=== PATIENT | male | born 1955 | race Hispanic/Latino ===

== ENCOUNTER 2017-10-31 05:58 | Inpatient (IN) | payer MEDICARE, OTHER ==
[2017-10-27 14:24] VITALS: BMI 23.9
[2017-10-31] MEDS ORDERED: Bupivacaine 0.5% Inj(30mL) ONE (07:32)
[2017-10-31] MEDS ORDERED: Propofol 10 mg/ml Inj (20 ML) ONE (07:53)
[2017-10-31] MEDS ORDERED: Rocuronium 10 mg/ml (5 ml) ONE ×2 (07:53→09:38)
[2017-10-31] MEDS ORDERED: Midazolam 2 MG/2 ML VIAL ONE (07:53)
[2017-10-31] MEDS ORDERED: metroNIDAZOLE IV 500 mg/100 ml 500 MG/100 ML BAG ONE (07:57)
[2017-10-31] MEDS ORDERED: MetroNIDAZOLE 500 mg/100 ml IVPB ONE (08:15)
[2017-10-31] MEDS ORDERED: Phenylephrine 10 mg/ml Inj ONE (08:37)
[2017-10-31] MEDS ORDERED: Neostigmine Methylsulfate 3mg/3ml Syringe IV ONE (10:50)
[2017-10-31] MEDS ORDERED: Morphine 4 mg/ml ISec ONE ×2 (10:50→11:11)
[2017-10-31] MEDS ORDERED: HYDROmorphone 0.5 mg/0.5 ml ISec IVP PRN (11:35)
[2017-10-31] MEDS ORDERED: HYDROmorphone 0.5 mg/0.5 ml ISec IVP ONE ×2 (11:35→11:56)
[2017-10-31] MEDS ORDERED: HYDROmorphone 0.5 mg/0.5 ml ISec ONE ×2 (11:36→11:53)
[2017-10-31] MEDS ORDERED: Sodium Chloride 0.9% 1,000 ML IV SCH (11:45)
--- NOTE | 2017-10-31 11:54 | PCM.SURG1 ---
Surgeon's Initial Post Op Note - Surgeon's Notes Surgeon: Dr. Krishna Laborer [employer]: Parisa Abdullahi PGY2 Pre-Operative Diagnosis: Parastomal hernia and ventral hernia Operative Findings: Parastomal hernia 5x5cm and ventral hernia [id number] Post-Operative Diagnosis: Same Operation Performed: Parastomal and ventral hernia repair with mesh Specimen/Specimens Removed: none Estimated Blood Loss: EBL {In ML}: 50 Blood Products Given: N/A Drains Used: Ramin Post-Op Condition: Good Date of Surgery/Procedure: 10/31/17 Time of Surgery/Procedure: 11:55
--- NOTE | 2017-10-31 12:59 | CP.PCM.CON ---
History of Present Illness - History of Present Illness History of Present Illness: PGY-[address] Bruno's service 62 yo male with PMH of carcinoma of the rectum T3 N1 M0, diabetes, CAD, CHF, hyperlipidemia, HTN,anemia presented for hernia repair of incarcerated parastomal hernia adn revision of colonstomy. 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 Patient was seen after surgery, he states that he is a little nauseous and has abd pain. He denies chest pain, sob, fever, chills. pmh: rectum T3 N1 M0, diabetes, CAD, CHF, hyperlipidemia, HTN,anemia psh: colostomy, cardiac bypass social history: fomer smoker quit 8 yo, occasional alcohol use, denies illicit drug use allergy: nkda Review of Systems - Constitutional Constitutional: absent: Chills, Fever - Cardiovascular Cardiovascular: absent: Chest Pain, Diaphoresis, Palpitations - Respiratory Respiratory: absent: Cough, Dyspnea, Wheezing - Gastrointestinal Gastrointestinal: Abdominal Pain, Nausea. absent: Vomiting Additional comments: colostomy - Musculoskeletal Musculoskeletal: absent: Arthralgias, Myalgias, Numbness - Integumentary Integumentary: absent: Pruritus, Rash, Skin Ulcer, Sores - Neurological Neurological: absent: Headaches, Syncope, Weakness - Hematologic/Lymphatic Hematologic: absent: Easy Bleeding, Easy Bruising Past Patient History - Past Social History Smoking Status: Never Smoked - CARDIAC Hx Pacemaker: No - PULMONARY Hx Respiratory Disorders: No - NEUROLOGICAL Hx Paralysis: No - HEENT Hx HEENT Problems: Yes (glasses) - ENDOCRINE/METABOLIC Hx Endocrine Disorders: Yes (diet controlled diabetes) - HEMATOLOGICAL/ONCOLOGICAL Hx Blood Transfusions: Yes (06/04/15) Hx Blood Transfusion Reaction: No - INTEGUMENTARY Other/Comment: surgical dressings x2 to abd christo x2 to abd left abd colostomy - MUSCULOSKELETAL/RHEUMATOLOGICAL Hx Musculoskeletal Disorders: Yes (BACK DISCOMFORT AT TIMES) - GASTROINTESTINAL Hx Gastrointestinal Disorders: Yes (weight loss) Hx Bowel Surgery: Yes Hx Colostomy: Yes - GENITOURINARY/GYNECOLOGICAL Hx Genitourinary Disorders: No Hx Reproductive Disorders: No - PSYCHIATRIC Hx Emotional Abuse: No Hx Physical Abuse: No Hx Substance Use: No - SURGICAL HISTORY Hx Surgeries: Yes - ANESTHESIA Hx Anesthesia Reactions: No Hx Malignant Hyperthermia: No Meds Allergies/Adverse Reactions: Allergies Allergy/AdvReac Type Severity Reaction Status Date / Time No Known Allergies Allergy Verified 10/27/17 14:24 - Medications Medications: Current Medications Acetaminophen (Tylenol 325mg Tab) 650 mg PO Q4 PRN PRN Reason: Fever >100.4 F Atorvastatin Calcium (Lipitor) 20 mg PO DIN [facility] Enoxaparin Sodium (Lovenox) 30 mg SC DAILY [facility] PRN Reason: Protocol Hydromorphone HCl (Dilaudid) 0.5 mg IVP Q10M PRN PRN Reason: Pain, moderate (4-7) Stop: 10/31/17 13:36 Hydromorphone HCl (Dilaudid) 0.5 mg IVP Q4H PRN PRN Reason: Pain, severe (8-10) Sodium Chloride (Sodium Chloride 0.9%) 1,000 mls @ 75 mls/hr IV .[id number] [facility] Stop: 10/31/17 13:46 Cefoxitin Sodium 1 gm/ Sodium (Chloride) 100 mls @ 100 mls/hr IV 0000,1600 [facility] PRN Reason: Protocol Stop: 11/01/17 00:59 Metronidazole (Flagyl) 250 mg in 50 mls @ 100 mls/hr IVPB 0000,1600 [facility] PRN Reason: Protocol Stop: 11/01/17 00:29 Metformin HCl (Glucophage) 500 mg PO BID [facility] Metoclopramide HCl (Reglan) 10 mg IV ONCE PRN PRN Reason: Nausea/Vomiting Metoprolol Tartrate (Lopressor) 25 mg PO BID [facility] Ondansetron HCl (Zofran Inj) 4 mg IVP Q4H PRN PRN Reason: Nausea/Vomiting Tramadol HCl (Ultram) 50 mg PO TID PRN PRN Reason: Pain, moderate (4-7) Physical Exam - Constitutional Appears: No Acute Distress - Head Exam Head Exam: ATRAUMATIC, NORMOCEPHALIC - Eye Exam Eye Exam: EOMI, Normal appearance - ENT Exam ENT Exam: Mucous Membranes Moist - Respiratory Exam Respiratory Exam: Clear to Auscultation Bilateral, NORMAL BREATHING PATTERN. absent: Rhonchi, Wheezes, Respiratory Distress - Cardiovascular Exam Cardiovascular Exam: REGULAR RHYTHM, +S1, +S2. absent: Bradycardia, Tachycardia , Systolic Murmur - GI/Abdominal Exam GI & Abdominal Exam: Diminished Bowel Sounds, Soft, Tenderness Additional comments: colostomy inplace, christo drain with serosanganous fluid, abd binder - Extremities Exam Extremities exam: Positive for: normal inspection. Negative for: pedal edema, tenderness - Neurological Exam Neurological exam: Alert, Oriented x3 Additional comments: sleepy due to sedation - Skin Skin Exam: Dry, Intact, Normal Color, Warm Results - Vital Signs Recent Vital Signs: Last Vital Signs Temp 97.8 F 10/31/17 12:45 Pulse 78 10/31/17 12:45 Resp 18 10/31/17 12:45 BP 145/65 10/31/17 12:45 Pulse Ox 98 10/31/17 12:45 - Labs Result Diagrams: 10/31/17 07:25 Labs: Laboratory Results - last 24 hr 10/31/17 10/31/17 10/31/17 06:30 07:25 11:43 Sodium 137 Potassium 5.2 H Chloride 101 Carbon Dioxide 25 Anion Gap 17 BUN 44 H Creatinine 2.6 H Est GFR ( Amer) 30 Est GFR (Non-Af Amer) 25 POC Glucose (mg/dL) 191 H Random Glucose 193 H Calcium 10.0 Blood Type B POSITIVE Antibody Screen Negative BBK History Checked Patient has bt Assessment & Plan - Assessment and Plan (Free Text) Assessment: 62 yo male with PMH of carcinoma of the rectum T3 N1 M0, diabetes, CAD, CHF, hyperlipidemia, HTN,anemia presented for hernia repair of incarcerated parastomal hernia and revision of colonstomy. Plan: will continue to monitor christo and colostomy output on clear liquid diet, advance diet per surgery abx cefoxitin and metronidazole started reglan given for n/v Dilaudid and ultram for pain per surgery lovenox for dvt ppx incentive spirometer ordered started on home medications for cad and dm including liptor, metformin, lopressor PT evaluation
[2017-10-31] MEDS: HYDROmorphone 0.5 mg/0.5 ml ISec IVP PRN (15:28)
[2017-10-31] MEDS ORDERED: metroNIDAZOLE IV 250mg/50 ml 250 MG/50 ML BAG IVPB SCH (16:00)
[2017-10-31] MEDS ORDERED: cefOXitin Sodium 1 GM in Sodium Chloride 0.9% 100 ML IV SCH (16:00)
[2017-10-31] MEDS: metroNIDAZOLE IV 250mg/50 ml 250 MG/50 ML BAG IVPB SCH (16:58)
[2017-10-31] MEDS: cefOXitin Sodium 1 GM in Sodium Chloride 0.9% 100 ML IV SCH ×2 (17:02→23:28)
[2017-10-31] MEDS ORDERED: Pneumococcal 23-Valent Vaccine IM ONE (18:40)
[2017-11-01] MEDS: metroNIDAZOLE IV 250mg/50 ml 250 MG/50 ML BAG IVPB SCH (00:51)
[2017-11-01] MEDS ORDERED: Sodium Chloride 0.9% 1,000 ML IV SCH ×4 (01:30→17:31)
[2017-11-01] MEDS ORDERED: Sod Polystyrene Sulf 15 gm/60 ml Susp PO STA (01:33)
--- NOTE | 2017-11-01 01:33 | CP.PCM.PN ---
Subjective - Date & Time of Evaluation Date of Evaluation: 11/01/17 Time of Evaluation: 01:33 - Subjective Subjective: S:Nurse calls and tells that K is 5.3 mEq. It was 5.2mEq. Came to see patient. He is resting. Medical record was reviewed. O: Last Vital Signs 3 Temp 98 F 10/31/17 23:04 Pulse 87 10/31/17 23:04 Resp 20 10/31/17 23:04 BP 158/87 H 11/01/17 00:00 Pulse Ox 98 10/31/17 23:04 Not in acute distress. LUNGS: Normal breathing pattern. A:Hyperkalemia. Renal insufficiency. P:Kayexalate 15 Gm PO x 1. Objective - Vital Signs/Intake and Output Vital Signs (last 24 hours): Temp Pulse Resp BP Pulse Ox 98 F 87 20 158/87 H 98 10/31/17 23:04 10/31/17 23:04 10/31/17 23:04 11/01/17 00:00 10/31/17 23:04 Intake and Output: 10/31/17 11/01/17 18:59 06:59 Intake Total 0 Balance 0 - Medications Medications: Current Medications Acetaminophen (Tylenol 325mg Tab) 650 mg PO Q4 PRN PRN Reason: Fever >100.4 F Atorvastatin Calcium (Lipitor) 20 mg PO DIN [facility] Last Admin: 10/31/17 18:23 Dose: 20 mg Enoxaparin Sodium (Lovenox) 30 mg SC DAILY [facility] PRN Reason: Protocol Hydromorphone HCl (Dilaudid) 0.5 mg IVP Q4H PRN PRN Reason: Pain, severe (8-10) Last Admin: 10/31/17 15:28 Dose: 0.5 mg Sodium Chloride (Sodium Chloride 0.9%) 1,000 mls @ 30 mls/hr IV .Q24H [facility] Metformin HCl (Glucophage) 500 mg PO BID [facility] Last Admin: 10/31/17 18:24 Dose: 500 mg Metoclopramide HCl (Reglan) 10 mg IV ONCE PRN PRN Reason: Nausea/Vomiting Metoprolol Tartrate (Lopressor) 25 mg PO BID [facility] Last Admin: 10/31/17 18:24 Dose: 25 mg Ondansetron HCl (Zofran Inj) 4 mg IVP Q4H PRN PRN Reason: Nausea/Vomiting Last Admin: 10/31/17 17:58 Dose: 4 mg Ondansetron HCl (Zofran Inj) 8 mg IVP Q6H PRN PRN Reason: Nausea/Vomiting Last Admin: 10/31/17 23:28 Dose: 8 mg Tramadol HCl (Ultram) 50 mg PO TID PRN PRN Reason: Pain, moderate (4-7) - Labs Labs: 10/31/17 21:00
[2017-11-01] MEDS: HYDROmorphone 0.5 mg/0.5 ml ISec IVP PRN ×2 (04:24→08:29)
[2017-11-01 06:53] LABS: BASO # 0.03 K/mm3 (0.0-2.0); BASO % 0.2 % (0.0-3.0); EOS % 0.1 % (1.5-5.0); GRAN % 92.1 % (50.0-68.0); HEMOGLOBIN 12.7 g/dL (14.0-18.0); LYMPH # 0.8 (1.2-3.4); MEAN CELL VOLUME 83.6 fl (80.0-105.0); MEAN CORPUSCULAR HEMOGLOBIN 29.3 pg (25.0-35.0); MEAN CORPUSCULAR HGB CONC 35.1 g/dl (31.0-37.0); MEAN PLATELET VOLUME 9.4 fl (7.0-11.0); MONO # 0.4 (0.1-0.6); MONO % 2.6 % (1.0-6.0); PLATELET COUNT 233 10^3/uL (120.0-450.0); RBC 4.33 10^6/uL (3.5-6.1); WHITE BLOOD COUNT 16.4 10^3/ul (4.5-11.0)
[2017-11-01 07:16] LABS: ALB/GLOB RATIO 1.5 (1.1-1.8); CALCIUM 8.5 mg/dL (8.4-10.5)
[2017-11-01] MEDS ORDERED: Insulin Reg-LOW-Coverage SC SCH (07:30)
[2017-11-01 08:05] LABS: BAND 1 % (0-2); EOSINOPHIL 1 % (0.0-3.0); LYMPHOCYTE 2 % (22.0-35.0); MONOCYTE 5 % (1.0-6.0); NEUTROPHIL 91 % (50.0-70.0)
[2017-11-01 08:07] LABS: PLATELET ESTIMATE NORMAL (NORMAL)
[2017-11-01] MEDS ORDERED: cefOXitin Sodium 1 GM in Sodium Chloride 0.9% 100 ML IV SCH (09:00)
--- NOTE | 2017-11-01 09:05 | CP.PCM.PN ---
Subjective - Date & Time of Evaluation Date of Evaluation: 11/01/17 Time of Evaluation: 07:00 - Subjective Subjective: Surgery Progress note. Dr. Krishna. Pt seen and examined at bedside. Patient had urinary retention and caraballo was placed overnight. Reports sarina-incisional pain and nausea, requesting increase in pain regimen. No F/C. No CP/SOB. Objective - Vital Signs/Intake and Output Vital Signs (last 24 hours): Temp Pulse Resp BP Pulse Ox 98.5 F 74 18 136/77 99 11/01/17 06:00 11/01/17 06:00 11/01/17 06:00 11/01/17 06:00 11/01/17 06:00 Intake and Output: 11/01/17 11/01/17 06:59 18:59 Intake Total 60 Output Total 610 Balance -550 - Medications Medications: Current Medications Acetaminophen (Tylenol 325mg Tab) 650 mg PO Q4 PRN PRN Reason: Fever >100.4 F Atorvastatin Calcium (Lipitor) 20 mg PO DIN [facility] Last Admin: 10/31/17 18:23 Dose: 20 mg Enoxaparin Sodium (Lovenox) 30 mg SC DAILY [facility] PRN Reason: Protocol Hydromorphone HCl (Dilaudid) 0.5 mg IVP Q4H PRN PRN Reason: Pain, severe (8-10) Last Admin: 11/01/17 08:29 Dose: 0.5 mg Sodium Chloride (Sodium Chloride 0.9%) 1,000 mls @ 30 mls/hr IV .Q24H [facility] Last Admin: 11/01/17 01:30 Dose: 30 mls/hr Cefoxitin Sodium 1 gm/ Sodium (Chloride) 100 mls @ 100 mls/hr IV Q8H [facility] PRN Reason: Protocol Metronidazole (Flagyl) 500 mg in 100 mls @ 100 mls/hr IVPB Q8 [facility] PRN Reason: Protocol Insulin Human Regular (Humulin R Low) 0 units SC ACHS [facility] PRN Reason: Protocol Last Admin: 11/01/17 08:26 Dose: Not Given Metformin HCl (Glucophage) 500 mg PO BID [facility] Last Admin: 10/31/17 18:24 Dose: 500 mg Metoclopramide HCl (Reglan) 10 mg IV ONCE PRN PRN Reason: Nausea/Vomiting Metoprolol Tartrate (Lopressor) 25 mg PO BID [facility] Last Admin: 10/31/17 18:24 Dose: 25 mg Ondansetron HCl (Zofran Inj) 4 mg IVP Q4H PRN PRN Reason: Nausea/Vomiting Last Admin: 11/01/17 08:28 Dose: 4 mg Ondansetron HCl (Zofran Inj) 8 mg IVP Q6H PRN PRN Reason: Nausea/Vomiting Last Admin: 11/01/17 04:28 Dose: 8 mg Tamsulosin HCl (Flomax) 0.4 mg PO DAILY [facility] Tramadol HCl (Ultram) 50 mg PO TID PRN PRN Reason: Pain, moderate (4-7) - Labs Labs: 11/01/17 06:38 11/01/17 06:38 - Constitutional Appears: Well, Non-toxic, No Acute Distress - Head Exam Head Exam: ATRAUMATIC, NORMAL INSPECTION, NORMOCEPHALIC - Eye Exam Eye Exam: EOMI, Normal appearance - ENT Exam ENT Exam: Mucous Membranes Moist - Respiratory Exam Respiratory Exam: NORMAL BREATHING PATTERN. absent: Accessory Muscle Use, Respiratory Distress - Cardiovascular Exam Cardiovascular Exam: RRR. absent: JVD - GI/Abdominal Exam Additional comments: Abd pain, midline abdominal incision intact. Stoma pink, no output as of yet. Sarina-incisional tenderness to palpation. Soft, non-distended - Extremities Exam Extremities Exam: Normal Inspection. absent: Calf Tenderness - Neurological Exam Neurological Exam: Alert, Awake, Oriented x3 - Skin Skin Exam: Dry, Intact, Normal Color, Warm Assessment and Plan - Assessment and Plan (Free Text) Assessment: 62yo M s/p ventral hernia/perastomal hernia repair with mesh. POD 1 Plan: - Continue Abx - Pain management. Add Toradol - Caraballo in for now due to urinary retention - Anti-emetics - Ramin drain management - Encourage out of bed to chair. Ambulate. IS use. - DVT ppx Further recs as per Dr. Krishna. Josué Bernabe PGY1 Surgery pager: [phone]
[2017-11-01] MEDS: Enoxaparin 30 mg Syringe SC SCH (09:32)
--- NOTE | 2017-11-01 11:34 | CP.PCM.PN ---
Subjective - Date & Time of Evaluation Date of Evaluation: 11/01/17 Time of Evaluation: 09:00 - Subjective Subjective: PGY-[address] Bruno's service Patient seen and examined at bedside. Patient states that his pain is 5/10 this morning however he is nausous with some vomiting. His pain is worse when vomiting Patient states that he did get medication to help with his n/v but he continued to feel nauseous until he received pain medication. He states that he is slowing trying to drink some milk to avoid more vomiting. He also reports some back pain from laying in bed but states that it is tolerable. He denies chest pain, sob, fever, chills. Objective - Vital Signs/Intake and Output Vital Signs (last 24 hours): Temp Pulse Resp BP Pulse Ox 98.5 F 89 18 137/89 99 11/01/17 06:00 11/01/17 09:32 11/01/17 06:00 11/01/17 09:32 11/01/17 06:00 Intake and Output: 11/01/17 11/01/17 06:59 18:59 Intake Total 60 Output Total 610 Balance -550 - Medications Medications: Current Medications Acetaminophen (Tylenol 325mg Tab) 650 mg PO Q4 PRN PRN Reason: Fever >100.4 F Atorvastatin Calcium (Lipitor) 20 mg PO DIN [facility] Last Admin: 10/31/17 18:23 Dose: 20 mg Enoxaparin Sodium (Lovenox) 30 mg SC DAILY [facility] PRN Reason: Protocol Last Admin: 11/01/17 09:32 Dose: 30 mg Hydromorphone HCl (Dilaudid) 0.5 mg IVP Q4H PRN PRN Reason: Pain, severe (8-10) Last Admin: 11/01/17 08:29 Dose: 0.5 mg Cefoxitin Sodium 1 gm/ Sodium (Chloride) 100 mls @ 100 mls/hr IV Q8H [facility] PRN Reason: Protocol Last Admin: 11/01/17 10:23 Dose: 100 mls/hr Metronidazole (Flagyl) 500 mg in 100 mls @ 100 mls/hr IVPB Q8 [facility] PRN Reason: Protocol Sodium Chloride (Sodium Chloride 0.9%) 1,000 mls @ 60 mls/hr IV .[id number] [facility] Insulin Human Regular (Humulin R Med) 0 units SC ACHS [facility] PRN Reason: Protocol Ketorolac Tromethamine (Toradol) 15 mg IVP Q6H [facility] Stop: 11/06/17 11:16 Metoclopramide HCl (Reglan) 10 mg IV ONCE PRN PRN Reason: Nausea/Vomiting Metoprolol Tartrate (Lopressor) 25 mg PO BID [facility] Last Admin: 11/01/17 09:32 Dose: 25 mg Ondansetron HCl (Zofran Inj) 4 mg IVP Q4H PRN PRN Reason: Nausea/Vomiting Last Admin: 11/01/17 08:28 Dose: 4 mg Ondansetron HCl (Zofran Inj) 8 mg IVP Q6H PRN PRN Reason: Nausea/Vomiting Last Admin: 11/01/17 04:28 Dose: 8 mg Sitagliptin Phosphate (Januvia) 25 mg PO DAILY [facility] Last Admin: 11/01/17 09:32 Dose: 25 mg Tamsulosin HCl (Flomax) 0.4 mg PO DAILY [facility] Last Admin: 11/01/17 09:32 Dose: 0.4 mg Tramadol HCl (Ultram) 50 mg PO TID PRN PRN Reason: Pain, moderate (4-7) - Labs Labs: 11/01/17 06:38 11/01/17 06:38 - Constitutional Appears: No Acute Distress - Head Exam Head Exam: ATRAUMATIC, NORMOCEPHALIC - Eye Exam Eye Exam: EOMI, Normal appearance - ENT Exam ENT Exam: Mucous Membranes Dry - Respiratory Exam Respiratory Exam: Clear to Ausculation Bilateral, NORMAL BREATHING PATTERN. absent: Decreased Breath Sounds, Rhonchi, Wheezes, Respiratory Distress - Cardiovascular Exam Cardiovascular Exam: REGULAR RHYTHM, +S1, +S2. absent: Tachycardia, Murmur - GI/Abdominal Exam GI & Abdominal Exam: Tenderness, Diminished Bowel Sounds Additional comments: drain in place, colostomy in place patient is wearing abd binder - Extremities Exam Extremities Exam: Normal Inspection. absent: Pedal Edema, Tenderness - Neurological Exam Neurological Exam: Alert, Awake, Oriented x3 - Skin Skin Exam: Dry, Intact, Normal Color, Warm Assessment and Plan - Assessment and Plan (Free Text) Assessment: 62 yo male with PMH of carcinoma of the rectum T3 N1 M0, diabetes, CAD, CHF, hyperlipidemia, HTN,anemia presented for hernia repair of incarcerated parastomal hernia and revision of colonstomy pod #1. Plan: will continue to monitor abd drain and colostomy output on clear liquid diet, advance diet per surgery leukocytosis with high neutrophils without fevers will order procal level to r/o infection continue abx cefoxitin and metronidazole Reglan given for n/v pain management per surgery currently uncontrolled sugars hold oral hypoglycemic agents, start on iss-med yesterday evening patient had elevated potassium was given kayexalate overnight , this AM K is within normal limits creatinine is also elevated this AM, will ask for nephrology consult and increase NS to 60 cc/hr caraballo catheter in place lovenox for dvt ppx incentive spirometer ordered continue on home medications for cad including Lipitor, Lopressor PT evaluation , OOB case reviewed and discussed with Dr. Bruno
[2017-11-01] MEDS: Insulin Reg-MEDIUM-Coverage SC SCH ×3 (13:20→22:00)
[2017-11-01] MEDS ORDERED: metroNIDAZOLE IV 500 mg/100 ml 500 MG/100 ML BAG IVPB SCH (14:00)
--- NOTE | 2017-11-01 16:10 | OP ---
PROCEDURE DATE: 10/31/2017 PREOPERATIVE DIAGNOSES: 1. Midline incisional hernia. 2. Parastomal hernia. PROCEDURES PERFORMED: 1. Repair of the parastomal hernia with mesh and revision of the colostomy. 2. Repair of the midline incisional hernia with mesh. SURGEON: Luis Krishna MD. LASER ENGRAVER: Dr. Snyder. SECOND LASER ENGRAVER: Dr. Abdullahi ANESTHESIOLOGIST: Dr. Ulloa. SPECIMEN: Hernia sac. ESTIMATED BLOOD LOSS: Minimal. INDICATIONS: Patient is a 62-year-old male with history of rectal cancer, status post abdominoperineal resection about 3 years ago. Patient was doing well; however, developed parastomal hernia, which he was complaining of with difficulty applying the stoma. Patient also has large midline incisional hernia, which was also causing him pain and discomfort. Patient was scheduled for the repair of both of these. DESCRIPTION OF PROCEDURE: Patient was brought to the operating room, placed on the operating table in supine position. Patient then was connected to the EKG, blood pressure, and pulse oximetry monitors. Patient then underwent general endotracheal anesthesia, and was prepped and draped in the usual sterile fashion. First, the existing colostomy was blocked with Ray-Noe sponge and purse-string was applied in order to avoid any leakage. At this point, we proceeded with placing a drape over the abdominal cavity after the patient was prepped and draped and proceeded with excision of the midline scar. Once this was carried through down to the hernia sac, it was carefully dissected out all the way out to the edges of the fascia. Once we dissected that, we proceeded with further release of the fat off the fascia for about a couple of centimeters all around the hernia. The hernia appeared to be extended from mid epigastrium down to the symphysis pubis. The hernia sac was now carefully excised and sent as a specimen. The remaining portion of the abdominal fascia was then carefully and appeared that we would be able to reapproximate it. At this point, I then proceeded with evaluation of the colostomy by carefully dissecting out the omentum off the abdominal wall laterally and exposing the entry site of the colostomy. Colostomy appeared to have a large parastomal hernia with separation of the transversus abdominis muscle. I then mobilized the colon and proceeded to plicate it towards the posterior portion of the defect and sutured it with 3-0 silk in order to attach the colon to the posterior wall of the hernia defect. The midline portion of the hernia defect was now reapproximated using #1 Prolene stitch and minimized the opening just enough to have a smooth entry point for the colon. Once this part was repaired, I then proceeded with placing a composite mesh against the colon and created a tunneled entry for the colon anterior to the area of the stoma and sutured that mesh with Prolene mesh side towards the abdominal wall covering the defect and covering the repair. The edges of it adjacent to the colon was then sutured using 3-0 silk in order to prevent any bowel from going under that mesh. Once all these was accomplished, I then returned my attention to the midline incisional hernia. We proceeded with mobilization of the peritoneum and posterior release of the rectus muscle in order to create retro-muscular space for placement of the mesh. Once this was done on both sides, a mesh of about 25 x 12 cm was placed over the wound and cut out adequately for coverage of that defect. Now, the peritoneum was carefully closed using 3-0 Vicryl and the preperitoneal space was fitted with Prolene mesh. That mesh was sutured with transfixing stitches through the muscle and the fascia in five places on both sides and then in a similar fashion, was reattached on the opposite side of the abdominal wall. At this point, the anterior rectus fascia overlying the rectus was reapproximated using #1 Prolene stitches without significant tension. Once this was done, we then copiously irrigated all the areas and suctioned out of the irrigant fluid. There was excellent hemostasis noted. We placed a Ramin drain at the bottom of the wound and reapproximated the skin using 3-0 interrupted Vicryl stitches. Next, the skin was closed using surgical don, sterile Dermabond dressing was applied to this wound. The was now removed and colostomy appliance was cleaned. The purse-string was removed and the packing from the colostomy opening was also opened and colostomy appliance was attached to the colostomy site. Patient tolerated the procedure well. There was no complications. Patient was awakened, extubated, and transferred to the Recovery Room for further observation. Luis Krishna MD
[2017-11-01] MEDS: Piperacillin/Tazobact 3.375 gm 100 ML IVPB SCH (17:58)
--- NOTE | 2017-11-01 18:23 | RAD ---
HISTORY: intractible nausea/vomiting COMPARISON: No prior. FINDINGS: BOWEL: There is a nonobstructive bowel gas pattern appreciate. Free intraperitoneal gas identified in the abdomen however and clinical correlation is advised. Surgical clips seen at the midline anterior abdominal wall inferiorly and the free air may be a function of prior surgery if this is within the past 45 days or so but clinical correlation is advised for potential hollow viscus rupture. A mild amount retained fecal material scattered throughout various large-bowel segments with left lower quadrant apparent colostomy or ileostomy present. Surgical drains identified the inferior abdomen with facet calcifications identified in the pelvis. BONES: Scoliotic lumbar spinal deformity noted as well as degenerative sacroiliac and hip joint changes bilaterally. OTHER FINDINGS: None. IMPRESSION: Free intrarenal gas and postop change are appreciated the free air is a limited volume and may reflect prior surgery recently. Clinically correlate as to the timing of surgery. A nonobstructive bowel gas pattern is appreciated grossly. Left lower quadrant ostomy present.
[2017-11-01] MEDS ORDERED: Morphine 4 mg/ml ISec IVP PRN (18:27)
[2017-11-01] MEDS: Metoprolol 1 mg/ml Inj IVP PRN (19:10)
[2017-11-01] MEDS ORDERED: DiphenhydrAMINE 50 mg/ml Inj IVP PRN (19:22)
[2017-11-01 19:34] LABS: HEMOGLOBIN 12.2 g/dL (14.0-18.0); MEAN CELL VOLUME 83.5 fl (80.0-105.0); MEAN CORPUSCULAR HEMOGLOBIN 29.5 pg (25.0-35.0); MEAN CORPUSCULAR HGB CONC 35.4 g/dl (31.0-37.0); MEAN PLATELET VOLUME 9.5 fl (7.0-11.0); RBC 4.13 10^6/uL (3.5-6.1); RED CELL DISTRIBUTION WIDTH 13.1 % (11.5-14.5); WHITE BLOOD COUNT 18.1 10^3/ul (4.5-11.0)
[2017-11-01 19:56] LABS: ALB/GLOB RATIO 1.5 (1.1-1.8); ALBUMIN 3.8 g/dL (3.0-4.8); CALCIUM 8.6 mg/dL (8.4-10.5)
[2017-11-01 20:02] LABS: URINE BILIRUBIN NEGATIVE (NEGATIVE); URINE BLOOD LARGE (NEGATIVE); URINE GLUCOSE (UA) >=1000 mg/dL (NEGATIVE); URINE LEUKOCYTE ESTERASE NEGATIVE Leu/uL (NEGATIVE); URINE PROTEIN >=300 mg/dL (<30 mg/dL); URINE UROBILINOGEN 0.2 E.U./dL (<1 E.U./dL)
[2017-11-01] MEDS: Sodium Chloride 0.9% 1,000 ML IV SCH (20:03)
[2017-11-01 20:09] LABS: URINE APPEARANCE SLIGHT-CLOUDY (CLEAR)
--- NOTE | 2017-11-01 20:28 | CON ---
DATE: 11/01/2017 The patient admitted for Dr. Krishna. REFERRING MD: Dr. Krishna REASON FOR CONSULTATION: Evaluation of the patient unknown to me, who presents with an elevated BUN and creatinine and mild hyperkalemia, seen postoperatively, post repair of incarcerated peristomal hernia and colostomy revision. HISTORY OF PRESENT ILLNESS: The patient is a very pleasant 62-year-old white male with a history of stage III rectal cancer, status post colostomy in 2015, with no detectable cancer on a recent PET scan. The patient developed an incarcerated peristomal hernia and he was admitted by Surgery for repair of the incarcerated hernia and colostomy revision. Postoperatively, the patient became distended. He had nausea, vomiting, was making no liquid stool through the colostomy. His BUN and creatinine were mildly elevated up to 43 and 2.5. His baseline BUN is in the 30 to 40 range dating back to 2015, with a baseline creatinine in the 1.5 to 2.3 range. The patient was also mildly hyperkalemic with a K of 5.3. A Richards catheter was placed with excellent urine output. The patient continues to complain of no p.o. intake secondary to significant nausea and vomiting. He is presently on a liquid diet. We are asked to evaluate the patient for his elevated BUN and creatinine in the setting of nausea, vomiting, decreased p.o. intake. Of note, the patient had a PET/CT scan approximately 5 months ago, which showed normal kidneys. PAST MEDICAL HISTORY: Significant for rectal cancer stage III, status post colostomy. History of NIDDM. History of ASHD, status post CABG in 2013, history of CHF. History of anemia in part secondary to his history of rectal cancer. History of hyperlipidemia. No history of hypertension. History of likely chronic kidney disease stage 3 with a baseline creatinine in the upper 1 to lower 2 range. MEDICATIONS AT HOME: Include that of amoxicillin, metformin, metoprolol, Lipitor, and Ecotrin. ALLERGIES: NO KNOWN ALLERGIES TO MEDICATIONS. CURRENT MEDICATIONS IN HOSPITAL: Include that of cefoxitin, Compazine, p.r.n. Dilaudid, Flagyl, Flomax, sliding scale insulin, Lipitor, Lopressor, Lovenox, Reglan, normal saline at 100 mL an hour, Toradol, Tylenol p.r.n., Ultram p.r.n., Zofran p.r.n. SOCIAL HISTORY: No history of cigarette smoking. The patient was never a cigarette smoker. History of social use of alcohol, but none recently. FAMILY HISTORY: Father of pancreatic cancer. Mother of complications of sepsis. No history of rectal or colon cancer. No history of chronic kidney disease. REVIEW OF SYSTEMS: GENERAL: The patient states with the recent episode, his appetite and weight have decreased, but in general, his weight has been stable. ENT: Denies any hearing or visual problems. PULMONARY: No shortness of breath. No history of COPD, bronchitis, emphysema, or recent pneumonia. CARDIAC: History of ASHD as noted above, but asymptomatic. GI: Abdominal pain, distention, nausea, and vomiting as noted above. : History of chronic kidney disease stage 3, likely. ENDOCRINE: History of NIDDM. No complications according to the patient. MUSCULOSKELETAL: No complaints. NEURO: No past history of CVA, TIA, seizures, or syncope. HEM/ONC: History of anemia. History of rectal cancer. PSYCHIATRIC: History is negative. PHYSICAL EXAMINATION: GENERAL: The patient is currently seen lying comfortable in the room recliner. IV fluids are infusing. He is still continuing to complain of nausea and vomiting despite receiving Zofran IV push [id number]. VITAL SIGNS: Blood pressure 137/89, temperature 98.5, pulse of 89 with a respiratory rate of 18. HEENT: Show him to be normocephalic, atraumatic. Conjunctivae are pink. Sclerae are nonicteric. NECK: Supple. No neck vein distention or thyromegaly. No lymphadenopathy. No bruits. CHEST: Clear to auscultation and percussion with no rales, rhonchi, or wheezing. CARDIAC: Normal S1, S2. No S3, no S4, no rub, no murmurs. ABDOMEN: Mildly distended. Decreased bowel sounds. Positive drain in the area of the surgical site. Positive left lower quadrant colostomy, the bag is empty. No guarding. No rebound. Mild tenderness to palpation of all 4 quadrants. BACK: No CVAT. No spinal tenderness. EXTREMITIES: No cyanosis, no clubbing or edema. Pulses are 2+ bilaterally. NEURO: Shows him to be alert, oriented x3 with no gross focal motor or sensory deficits noted. LABORATORY DATA AND IMAGING: No recent radiology or imaging studies done. Again, the patient had a CT/PET scan back in 06/2017, which showed normal kidneys and no evidence for cancer. White blood cell count 16.4 with a hemoglobin of 12.7 and platelet count of 233,000. Chemistry showed normal electrolytes. BUN is 43 with a creatinine of 2.5. His baseline BUN is in the 30 to 40 range dating back to 2015, with a baseline creatinine 1.5 to 2.3 range. No urine is available for comment. Calcium is 8.5. Glucose is 289. Liver enzymes are normal. Albumin is 4. Microbiology: No culture data is available at the time of dictation. ASSESSMENT: 1. Mild elevation of BUN and creatinine above his baseline, which is likely consistent with chronic kidney disease stage 3. He has a creatinine in the upper 1 to low 2 range dating back to 2015. Slight elevation of BUN and creatinine in the setting secondary to nausea and vomiting, volume depletion, and decreased oral intake. Agree with initiation of IV fluid hydration. I will check urine sodium, urine creatinine, urinalysis, urine Julian stain. The BUN and creatinine trend down to baseline. No reason to do any further imaging studies. 2. Status post mild hyperkalemia. The patient was offered Kayexalate which he refused to take. His potassium level today is improved down to 4.6 from 5.3. 3. History of stage III rectal cancer, status post colostomy. The patient is postoperative day #1 repair of incarcerated peristomal hernia and colostomy revision. Surgery went well as per the patient and his surgeon. 4. Mild elevation of his white blood cell count. The patient remains on empiric antibiotic therapy. 5. History of [id number]-[id number] diabetes mellitus. At all likelihood, the patient should probably not be on metformin given the fact that his creatinine levels are above the guidelines for this medication. There is a concern of developing lactic acidosis. Perhaps, low-dose glipizide therapy upon discharge. 6. History of atherosclerotic heart disease, history of congestive heart failure, history of coronary artery bypass graft in 2013. The patient appears to be stable. He remains on beta-jhonny therapy. 7. History of mild anemia likely secondary to underlying rectal cancer. 8. Mild hyperlipidemia. The patient remains on diet and statin therapy. PLAN: 1. Agree with IV fluid hydration. 2. Check urine sodium, urine creatinine, and urine Julian stain. Check urinalysis. 3. Obtain accurate I's and O's. 4. Avoid all nephrotoxic agents. No contrast or dye studies. 5. I would reconsider removal of metformin from his medication list and perhaps the patient can be maintained on low-dose glipizide therapy for his diabetes control. 6. Monitor daily labs during hospitalization. 7. Once oral intake improves, IV fluids may be discontinued assuming his BUN and creatinine fall back to baseline levels, which is BUN in the 30 to 40 range and the creatinine in the 1.5 to 2.3 range. Thank you for letting me share in the care of your patient. Toño Rodriguez MD
[2017-11-01 20:33] LABS: CREATININE,RANDOM URINE 79 mg/dL
[2017-11-01 20:54] LABS: URINE AMORPHOUS SEDIMENT SMALL; URINE BACTERIA TRACE (NEG); URINE RBC TNTC /hpf (0-2)
[2017-11-02] MEDS: Metoprolol 1 mg/ml Inj IVP PRN (00:17)
[2017-11-02] MEDS: Piperacillin/Tazobact 3.375 gm 100 ML IVPB SCH (00:18)
[2017-11-02] MEDS: Sodium Chloride 0.9% 1,000 ML IV SCH ×2 (04:47→18:01)
[2017-11-02 06:53] LABS: BASO # 0.02 K/mm3 (0.0-2.0); BASO % 0.1 % (0.0-3.0); EOS # 0.1 (0.0-0.7); EOS % 0.6 % (1.5-5.0); GRAN # 13.32 (1.4-6.5); GRAN % 90.4 % (50.0-68.0); HEMOGLOBIN 10.3 g/dL (14.0-18.0); LYMPH # 0.7 (1.2-3.4); LYMPH % 4.7 % (22.0-35.0); MEAN CELL VOLUME 84.6 fl (80.0-105.0); MEAN CORPUSCULAR HEMOGLOBIN 29.3 pg (25.0-35.0); MEAN CORPUSCULAR HGB CONC 34.7 g/dl (31.0-37.0); MEAN PLATELET VOLUME 8.8 fl (7.0-11.0); MONO # 0.6 (0.1-0.6); MONO % 4.2 % (1.0-6.0); RBC 3.51 10^6/uL (3.5-6.1); RED CELL DISTRIBUTION WIDTH 13.4 % (11.5-14.5); WHITE BLOOD COUNT 14.8 10^3/ul (4.5-11.0)
[2017-11-02 07:18] LABS: ALB/GLOB RATIO 1.3 (1.1-1.8); ALBUMIN 3.3 g/dL (3.0-4.8); CALCIUM 7.8 mg/dL (8.4-10.5); URIC ACID 6.5 mg/dL (3.5-8.5)
--- NOTE | 2017-11-02 07:51 | CON ---
DATE: ENDOCRINOLOGY CONSULTATION LOCATION: Room 275. HISTORY OF PRESENT ILLNESS: This is a 62-year-old male with a known history of type 2 diabetes, hypertension, and concomitant rectal carcinoma, presenting here for repair of a ventral and parastomal hernia repair and is now being referred for diabetic evaluation because of persistent hyperglycemic accelerations as noted thereof. PAST MEDICAL HISTORY: As mentioned above, history of type 2 diabetes, on metformin given as 500 mg b.i.d.; history of hypertension and dyslipidemia; history of coronary artery disease and previous admissions for congestive heart failure. He also has a previous coronary artery bypass graft surgery, history of carcinoma of the rectum and underwent a prior colon resection and subsequent chemotherapy and a colostomy placement. History of chronic anemia, history of hypertension and dyslipidemia. FAMILY HISTORY: Positive for diabetes and hypertension. SOCIAL HISTORY: He is a former smoker and quit over 10 years ago. No other illicit drug use. He has a very supportive family, otherwise. REVIEW OF SYSTEMS: As mentioned above. Admits to generalized body weakness with easy fatigability and tiredness and suboptimal energy level. Also admits to occasional bifrontal headaches and visual blurring. No chest pains or palpitations, but admits to occasional shortness of breath especially on exertion. His oral intake has been variable with nausea, dyspepsia and severe abdominal pain related to the incarcerated hernia as noted. Also admits to lower extremity paresthesias especially nocturnally. PHYSICAL EXAMINATION: GENERAL: This is an average-built male, in no apparent distress. VITAL SIGNS: Blood pressure of 140/80, pulse of 70 beats per minute and regular, temperature 98, respirations 20, height is 5 feet 9 inches, weight is 162 pounds. HEENT: Head normocephalic. Eyes anicteric with pink conjunctivae. Funduscopy not possible at this time. Ears, nose and throat otherwise normal. NECK: Supple. Thyroid gland is normal in size. No carotid bruits or any cervical adenopathy. CARDIOPULMONARY: Some adynamic precordium. S1, S2 is rapid and regular. LUNGS: Clear to auscultation. ABDOMEN: Flat, soft with positive bowel sounds. EXTREMITIES: No peripheral edema. Pulses are +2 bilaterally. LABORATORY DATA: His WBC is 18.1, hemoglobin of 12, hematocrit of 34, MCV 84, platelets 263. His chemistry showed a BUN of 45, sodium 138, potassium 4, chloride 101, CO2 21, glucose 319 and creatinine 2.5. ASSESSMENT: This is a 62-year-old male with uncontrolled and decompensated type 2 insulin-requiring diabetes with marked hyperglycemic accelerations related to the intercurrent physical stressors with increased insulin resistance and further impaired glucose tolerance thereof, with possible underlying bacteremia and infection, which could also contribute to the aforementioned. He also has diabetic microvascular complications of retinopathy, polyneuropathy and nephropathy with diabetic macrovascular complications of coronary artery disease with the previous coronary artery bypass graft surgery with underlying peripheral arterial disease and vasculopathy. PLAN OF MANAGEMENT: As discussed with the patient and staff, we will modify his current insulin regimen and switch him over to a more basal and bolus physiologic insulin drug combination, as will be ordered. As he is only on a liquid diet, we will modify his coverage scale to obviate hypoglycemia and detailed orders have been given. We will also start him on Levemir given as 20 units subcu at bedtime daily as ordered. We will add Humalog given as 6 units subcu t.i.d. before meals as ordered. We will titrate incrementally as indicated to optimize metabolic control. We will obtain serial chemistries and supplement accordingly as needed. We will also obtain a baseline thyroid studies and lipid panel and lipase level as ordered. We will follow. Pam Peters MD
[2017-11-02] MEDS: Insulin Lispro 1 UNITS/0.01 ML SC SCH ×3 (09:38→18:05)
[2017-11-02] MEDS: Insulin Lispro (humaLOG) LOW Coverage SC SCH ×3 (09:38→18:05)
[2017-11-02] MEDS: Enoxaparin 30 mg Syringe SC SCH (09:44)
--- NOTE | 2017-11-02 10:45 | CP.PCM.PN ---
Subjective - Date & Time of Evaluation Date of Evaluation: 11/02/17 Time of Evaluation: 09:00 - Subjective Subjective: PGY-[address] Bruno's service Patient seen and examined at bedside. Patient states that his pain is better however he continues to nauseous with vomiting. He states that the pain in his abd occurs when he is vomiting. Patient states that the ativan and Benadryl overnight helped but he states that shayan medications only help a little bit and the n/v return. He is not eating due to the n/v. However he does report stool in his colostomy. He denies chest pain, sob, fever, chills. Patient was moved to tele floor overnight due to high blood pressure. It was controlled with IV Lopressor Objective - Vital Signs/Intake and Output Vital Signs (last 24 hours): Temp Pulse Resp BP Pulse Ox 98.0 F 69 18 158/70 H 97 11/02/17 05:20 11/02/17 09:44 11/02/17 05:20 11/02/17 09:44 11/02/17 05:20 Intake and Output: 11/02/17 11/02/17 06:59 18:59 Intake Total 1270 Output Total 770 Balance 500 - Medications Medications: Current Medications Acetaminophen (Tylenol 325mg Tab) 650 mg PO Q4 PRN PRN Reason: Fever >100.4 F Acetaminophen (Tylenol 325mg Tab) 650 mg PO Q4H PRN PRN Reason: Pain, severe (8-10) Alprazolam (Xanax) 0.5 mg PO TID PRN; Protocol PRN Reason: Anxiety Atorvastatin Calcium (Lipitor) 20 mg PO DIN [facility] Last Admin: 11/01/17 20:03 Dose: Not Given Diphenhydramine HCl (Benadryl) 25 mg IVP Q6H PRN PRN Reason: Restlessness Last Admin: 11/01/17 19:59 Dose: 25 mg Dronabinol (Marinol) 2.5 mg PO DAILY [facility] Enoxaparin Sodium (Lovenox) 30 mg SC DAILY [facility] PRN Reason: Protocol Last Admin: 11/02/17 09:44 Dose: 30 mg Hydromorphone HCl (Dilaudid) 0.5 mg IVP Q4H PRN PRN Reason: Pain, severe (8-10) Last Admin: 11/01/17 08:29 Dose: 0.5 mg Sodium Chloride (Sodium Chloride 0.9%) 1,000 mls @ 90 mls/hr IV .Q11H7M [facility] Last Admin: 11/02/17 04:47 Dose: 90 mls/hr Insulin Detemir (Levemir) 20 unit SC HS [facility] Insulin Human Lispro (Humalog Low) 0 units SC ACHS [facility] PRN Reason: Protocol Last Admin: 11/02/17 09:38 Dose: Not Given Insulin Human Lispro (Humalog) 6 units SC AC [facility] Last Admin: 11/02/17 09:38 Dose: Not Given Lorazepam (Ativan) 0.5 mg IVP Q6H PRN; Protocol PRN Reason: Restlessness Last Admin: 11/01/17 20:00 Dose: 0.5 mg Metoprolol Tartrate (Lopressor) 25 mg PO BID [facility] Last Admin: 11/02/17 09:44 Dose: 25 mg Metoprolol Tartrate (Lopressor) 5 mg IVP Q6H PRN PRN Reason: Diastolic blood pressure Last Admin: 11/02/17 00:17 Dose: 5 mg Morphine Sulfate (Morphine) 3 mg IVP Q4H PRN PRN Reason: Pain, moderate (4-7) Ondansetron HCl (Zofran Inj) 8 mg IVP Q6H PRN PRN Reason: Nausea/Vomiting Last Admin: 11/02/17 04:26 Dose: 8 mg Prochlorperazine (Compazine Tab) 5 mg PO TID PRN PRN Reason: Nausea/Vomiting Last Admin: 11/02/17 08:14 Dose: 5 mg Tamsulosin HCl (Flomax) 0.4 mg PO DAILY [facility] Last Admin: 11/02/17 09:44 Dose: 0.4 mg - Labs Labs: 11/02/17 06:30 11/02/17 06:30 - Constitutional Appears: No Acute Distress - Head Exam Head Exam: ATRAUMATIC, NORMOCEPHALIC - Eye Exam Eye Exam: EOMI, Normal appearance - ENT Exam ENT Exam: Mucous Membranes Dry - Respiratory Exam Respiratory Exam: Clear to Ausculation Bilateral, NORMAL BREATHING PATTERN. absent: Decreased Breath Sounds, Rhonchi, Wheezes, Respiratory Distress - Cardiovascular Exam Cardiovascular Exam: REGULAR RHYTHM, +S1, +S2. absent: Tachycardia, Murmur - GI/Abdominal Exam GI & Abdominal Exam: Soft, Tenderness, Diminished Bowel Sounds. absent: Distended, Firm Additional comments: colostomy in pace with small amount of stool, dressing clean, dry and intact - Neurological Exam Neurological Exam: Alert, Awake, Oriented x3 - Psychiatric Exam Psychiatric exam: Normal Affect, Normal Mood - Skin Skin Exam: Dry, Intact, Normal Color, Warm Assessment and Plan - Assessment and Plan (Free Text) Assessment: 62 yo male with PMH of carcinoma of the rectum T3 N1 M0, diabetes, CAD, CHF, hyperlipidemia, HTN,anemia presented for hernia repair of incarcerated parastomal hernia and revision of colonstomy pod #2. Plan: will continue to monitor abd drain and colostomy output on clear liquid diet, advance diet per surgery leukocytosis with high neutrophils without fevers procal level mildly elevated continue abx cefoxitin and metronidazole Reglan given for n/v will start Ativan and Benadryl for n/v pain management per surgery hold oral hypoglycemic agents start on levemir 20 units and lispro 6 units acs continue iss-low endocrinology consulted electrolytes within normal limits creatinine is elevated, FeNA suggestive of prerenal nephrology consulted increase NS to 90 cc/hr caraballo catheter in place patient hypertnsive yesterday most likely a combination of pain, n/v and inability tyo tolerate PO intake of BP meds patient was transferred to [facility] and started on lopressor IVP prn lovenox for dvt ppx incentive spirometer ordered continue on home medications for cad including Lipitor, Lopressor PT evaluation , OOB case reviewed and discussed with Dr. Bruno
--- NOTE | 2017-11-02 12:06 | CP.PCM.PN ---
Subjective - Date & Time of Evaluation Date of Evaluation: 11/02/17 Time of Evaluation: 09:45 - Subjective Subjective: Surgery Progress note. Dr. Krishna Pt seen and examined at bedside. Still c/o nausea and vomiting. No F/C. No CP/ SOB. No new complaints. Objective - Vital Signs/Intake and Output Vital Signs (last 24 hours): Temp Pulse Resp BP Pulse Ox 98.0 F 80 18 158/70 H 97 11/02/17 05:20 11/02/17 10:00 11/02/17 05:20 11/02/17 09:44 11/02/17 05:20 Intake and Output: 11/02/17 11/02/17 06:59 18:59 Intake Total 1270 Output Total 770 Balance 500 - Medications Medications: Current Medications Acetaminophen (Tylenol 325mg Tab) 650 mg PO Q4 PRN PRN Reason: Fever >100.4 F Acetaminophen (Tylenol 325mg Tab) 650 mg PO Q4H PRN PRN Reason: Pain, severe (8-10) Alprazolam (Xanax) 0.5 mg PO TID PRN; Protocol PRN Reason: Anxiety Atorvastatin Calcium (Lipitor) 20 mg PO DIN [facility] [place] Last Admin: 11/01/17 20:03 Dose: Not Given Diphenhydramine HCl (Benadryl) 25 mg IVP Q6H PRN PRN Reason: Restlessness Last Admin: 11/01/17 19:59 Dose: 25 mg Dronabinol (Marinol) 2.5 mg PO DAILY [facility] [place] Enoxaparin Sodium (Lovenox) 30 mg SC DAILY [facility] PRN Reason: Protocol Last Admin: 11/02/17 09:44 Dose: 30 mg Hydromorphone HCl (Dilaudid) 0.5 mg IVP Q4H PRN PRN Reason: Pain, severe (8-10) Last Admin: 11/01/17 08:29 Dose: 0.5 mg Sodium Chloride (Sodium Chloride 0.9%) 1,000 mls @ 90 mls/hr IV .Q11H7M [facility] [place] Last Admin: 11/02/17 04:47 Dose: 90 mls/hr Insulin Detemir (Levemir) 20 unit SC HS [facility] Insulin Human Lispro (Humalog Low) 0 units SC ACHS [facility] PRN Reason: Protocol Last Admin: 11/02/17 09:38 Dose: Not Given Insulin Human Lispro (Humalog) 6 units SC AC [facility] Last Admin: 11/02/17 09:38 Dose: Not Given Lorazepam (Ativan) 0.5 mg IVP Q6H PRN; Protocol PRN Reason: Restlessness Last Admin: 11/01/17 20:00 Dose: 0.5 mg Metoprolol Tartrate (Lopressor) 25 mg PO BID [facility] Last Admin: 11/02/17 09:44 Dose: 25 mg Metoprolol Tartrate (Lopressor) 5 mg IVP Q6H PRN PRN Reason: Diastolic blood pressure Last Admin: 11/02/17 00:17 Dose: 5 mg Morphine Sulfate (Morphine) 3 mg IVP Q4H PRN PRN Reason: Pain, moderate (4-7) Ondansetron HCl (Zofran Inj) 8 mg IVP Q6H PRN PRN Reason: Nausea/Vomiting Last Admin: 11/02/17 04:26 Dose: 8 mg Pantoprazole Sodium (Protonix Inj) 40 mg IVP DAILY [facility] [place] Prochlorperazine (Compazine Tab) 5 mg PO TID PRN PRN Reason: Nausea/Vomiting Last Admin: 11/02/17 08:14 Dose: 5 mg Tamsulosin HCl (Flomax) 0.4 mg PO DAILY [facility] Last Admin: 11/02/17 09:44 Dose: 0.4 mg - Labs Labs: 11/02/17 06:30 11/02/17 06:30 - Constitutional Appears: Well, Non-toxic, No Acute Distress - Head Exam Head Exam: ATRAUMATIC, NORMAL INSPECTION, NORMOCEPHALIC - Eye Exam Eye Exam: EOMI, Normal appearance - ENT Exam ENT Exam: Mucous Membranes Moist - GI/Abdominal Exam GI & Abdominal Exam: Soft. absent: Distended, Firm, Guarding, Rigid, Rebound Additional comments: soft. Mild sarina-incisional tenderness. Stoma pink, air present in bag, no output present. - Neurological Exam Neurological Exam: Alert, Awake, Oriented x3 - Psychiatric Exam Psychiatric exam: Anxious - Skin Skin Exam: Dry, Intact, Normal Color, Warm Assessment and Plan - Assessment and Plan (Free Text) Assessment: 62yo M s/p ventral hernia/parastomal hernia repair with mesh. POD 2 Plan: - Continue Abx - Add Xanax prn for anxiolytic - Pain management - Richards in for now. Consult Urology, Dr. Aguilar. Appreciate recs. - f/u nephrology recs - Anti-emetics - Ramin drain management - Encourage out of bed to chair. Ambulate. IS use. - DVT ppx Further recs as per Dr. Krishna. Josué Bernabe PGY1 Surgery pager: [phone]
--- NOTE | 2017-11-02 12:34 | CP.PCM.CON ---
History of Present Illness - History of Present Illness History of Present Illness: S&E at bedside, chart reviewed earlier today. Request for consult is for H/O Rectal cancer. HPI: This is a 62 year old male, w/ PMH of Rectal cancer, CHF, HLD, CAD, HTN, S/ p recent Hernia repair of incarcerated incisional parastomal hernia with mesh and revision of colostomy, this was done 10/31/2017. Patient complains of nausea and vomiting postop. Patient unable to tolerate any oral intake. Patient has basin with bile colored vomitus. No reports of hematemesis. Patient also reports episodes of dry heaving. Passing gas but no stool output via colostomy as per patient. Patient denies shortness of breath chest pain, fever or chills. The patient's last colonoscopy noted was June 11, 2015. His initial surgery was 08/01/2015 and the pathology of the rectum reported poorly differentiated tumor. Patient denies any weight loss or loss of appetite prior to surgery. Currently complains of acid reflux, patient states it's likely from vomiting. Past medical history: Rectal cancer, CHF, anemia, hypertension, diabetes mellitus, CAD, hyperlipidemia Past surgical history: Colostomy, cardiac bypass Social history: Former smoker, social alcohol use, denies recreational drugs Medications: Reviewed as per MAR Family history: Noncontributory at this time Allergies: No known drug allergies ROS: Systems review the positive findings see HPI Past Patient History - Past Social History Smoking Status: Never Smoked - CARDIAC Hx Pacemaker: No - PULMONARY Hx Respiratory Disorders: No - NEUROLOGICAL Hx Paralysis: No - HEENT Hx HEENT Problems: Yes (glasses) - ENDOCRINE/METABOLIC Hx Endocrine Disorders: Yes (diet controlled diabetes) - HEMATOLOGICAL/ONCOLOGICAL Hx Blood Transfusions: Yes (06/04/15) Hx Blood Transfusion Reaction: No - INTEGUMENTARY Other/Comment: surgical dressings x2 to abd christo x2 to abd left abd colostomy - MUSCULOSKELETAL/RHEUMATOLOGICAL Hx Musculoskeletal Disorders: Yes (BACK DISCOMFORT AT TIMES) - GASTROINTESTINAL Hx Gastrointestinal Disorders: Yes (weight loss) Hx Bowel Surgery: Yes Hx Colostomy: Yes - GENITOURINARY/GYNECOLOGICAL Hx Genitourinary Disorders: No Hx Reproductive Disorders: No - PSYCHIATRIC Hx Emotional Abuse: No Hx Physical Abuse: No Hx Substance Use: No - SURGICAL HISTORY Hx Surgeries: Yes - ANESTHESIA Hx Anesthesia Reactions: No Hx Malignant Hyperthermia: No Meds Allergies/Adverse Reactions: Allergies Allergy/AdvReac Type Severity Reaction Status Date / Time No Known Allergies Allergy Verified 10/31/17 15:11 - Medications Medications: Current Medications Acetaminophen (Tylenol 325mg Tab) 650 mg PO Q4 PRN PRN Reason: Fever >100.4 F Acetaminophen (Tylenol 325mg Tab) 650 mg PO Q4H PRN PRN Reason: Pain, severe (8-10) Alprazolam (Xanax) 0.5 mg PO TID PRN; Protocol PRN Reason: Anxiety Atorvastatin Calcium (Lipitor) 20 mg PO DIN [facility] Last Admin: 11/01/17 20:03 Dose: Not Given Diphenhydramine HCl (Benadryl) 25 mg IVP Q6H PRN PRN Reason: Restlessness Last Admin: 11/01/17 19:59 Dose: 25 mg Dronabinol (Marinol) 2.5 mg PO DAILY [facility] Enoxaparin Sodium (Lovenox) 30 mg SC DAILY [facility] PRN Reason: Protocol Last Admin: 11/02/17 09:44 Dose: 30 mg Hydromorphone HCl (Dilaudid) 0.5 mg IVP Q4H PRN PRN Reason: Pain, severe (8-10) Last Admin: 11/01/17 08:29 Dose: 0.5 mg Sodium Chloride (Sodium Chloride 0.9%) 1,000 mls @ 90 mls/hr IV .Q11H7M [facility] Last Admin: 11/02/17 04:47 Dose: 90 mls/hr Insulin Detemir (Levemir) 20 unit SC HS [facility] Insulin Human Lispro (Humalog Low) 0 units SC ACHS [facility] PRN Reason: Protocol Last Admin: 11/02/17 09:38 Dose: Not Given Insulin Human Lispro (Humalog) 6 units SC AC [facility] Last Admin: 11/02/17 09:38 Dose: Not Given Lorazepam (Ativan) 0.5 mg IVP Q6H PRN; Protocol PRN Reason: Restlessness Last Admin: 11/01/17 20:00 Dose: 0.5 mg Metoprolol Tartrate (Lopressor) 25 mg PO BID [facility] Last Admin: 11/02/17 09:44 Dose: 25 mg Metoprolol Tartrate (Lopressor) 5 mg IVP Q6H PRN PRN Reason: Diastolic blood pressure Last Admin: 11/02/17 00:17 Dose: 5 mg Morphine Sulfate (Morphine) 3 mg IVP Q4H PRN PRN Reason: Pain, moderate (4-7) Ondansetron HCl (Zofran Inj) 8 mg IVP Q6H PRN PRN Reason: Nausea/Vomiting Last Admin: 11/02/17 04:26 Dose: 8 mg Prochlorperazine (Compazine Tab) 5 mg PO TID PRN PRN Reason: Nausea/Vomiting Last Admin: 11/02/17 08:14 Dose: 5 mg Tamsulosin HCl (Flomax) 0.4 mg PO DAILY [facility] Last Admin: 11/02/17 09:44 Dose: 0.4 mg Physical Exam - Constitutional Appears: No Acute Distress - Head Exam Head Exam: NORMOCEPHALIC - Eye Exam Eye Exam: Normal appearance. absent: Scleral icterus - ENT Exam ENT Exam: Mucous Membranes Moist - Neck Exam Neck exam: Positive for: Normal Inspection - Respiratory Exam Respiratory Exam: NORMAL BREATHING PATTERN. absent: Respiratory Distress - Cardiovascular Exam Cardiovascular Exam: +S1, +S2 - GI/Abdominal Exam GI & Abdominal Exam: Hypoactive Bowel Sounds, Soft Additional comments: stoma pink, no stool in colostomy bag, incisional tenderness, no rebound or guarding - Extremities Exam Extremities exam: Positive for: pedal pulses present. Negative for: calf tenderness, pedal edema - Neurological Exam Neurological exam: Alert, Oriented x3 - Skin Skin Exam: Dry, Warm Results - Vital Signs Recent Vital Signs: Last Vital Signs Temp 98.0 F 11/02/17 05:20 Pulse 69 11/02/17 09:44 Resp 18 11/02/17 05:20 BP 158/70 H 11/02/17 09:44 Pulse Ox 97 11/02/17 05:20 - Labs Result Diagrams: 11/03/17 07:10 11/03/17 07:10 Labs: Laboratory Results - last 24 hr 11/01/17 11/01/17 11/01/17 11:18 13:00 16:14 WBC RBC Hgb Hct MCV MCH MCHC RDW Plt Count MPV Gran % Lymph % (Auto) [place] % (Auto) Eos % (Auto) Baso % (Auto) Gran # Lymph # (Auto) [place] # (Auto) Eos # (Auto) Baso # (Auto) Sodium Potassium Chloride Carbon Dioxide Anion Gap BUN Creatinine Est GFR ( Amer) Est GFR (Non-Af Amer) POC Glucose (mg/dL) 286 H 311 H Random Glucose Uric Acid Calcium Phosphorus Magnesium Total Bilirubin AST ALT Alkaline Phosphatase Total Protein Albumin Globulin Albumin/Globulin Ratio Triglycerides Cholesterol LDL Cholesterol Direct HDL Cholesterol Procalcitonin 0.51 H TSH 3rd Generation Urine Color Urine Appearance Urine pH Ur Specific [place] Urine Protein Urine Glucose (UA) Urine Ketones Urine Blood Urine Nitrate Urine Bilirubin Urine Urobilinogen Ur Leukocyte Esterase Urine RBC Urine WBC Ur Epithelial Cells Amorphous Sediment Urine Bacteria Urine Eosinophils Ur Random Creatinine Ur Random Sodium 11/01/17 11/01/17 11/01/17 18:41 18:41 18:41 WBC RBC Hgb Hct MCV MCH MCHC RDW Plt Count MPV Gran % Lymph % (Auto) [place] % (Auto) Eos % (Auto) Baso % (Auto) Gran # Lymph # (Auto) [place] # (Auto) Eos # (Auto) Baso # (Auto) Sodium Potassium Chloride Carbon Dioxide Anion Gap BUN Creatinine Est GFR ( Amer) Est GFR (Non-Af Amer) POC Glucose (mg/dL) Random Glucose Uric Acid Calcium Phosphorus Magnesium Total Bilirubin AST ALT Alkaline Phosphatase Total Protein Albumin Globulin Albumin/Globulin Ratio Triglycerides Cholesterol LDL Cholesterol Direct HDL Cholesterol Procalcitonin TSH 3rd Generation Urine Color yellow Urine Appearance Slight-cloudy Urine pH 6.0 Ur Specific [place] 1.025 Urine Protein >=300 H Urine Glucose (UA) >=1000 Urine Ketones Trace H Urine Blood Large H Urine Nitrate Negative Urine Bilirubin Negative Urine Urobilinogen 0.2 Ur Leukocyte Esterase Negative Urine RBC Tntc Urine WBC 2 - 5 Ur Epithelial Cells 6 - 8 Amorphous Sediment Small Urine Bacteria Trace Urine Eosinophils Neg Ur Random Creatinine 79 Ur Random Sodium 40 11/01/17 11/01/17 11/02/17 19:30 19:30 06:30 WBC 18.1 H 14.8 H RBC 4.13 3.51 Hgb 12.2 L 10.3 L Hct 34.5 L 29.7 L MCV 83.5 84.6 MCH 29.5 29.3 MCHC 35.4 34.7 RDW 13.1 13.4 Plt Count 263 216 MPV 9.5 8.8 Gran % 90.4 H Lymph % (Auto) 4.7 L [place] % (Auto) 4.2 Eos % (Auto) 0.6 L Baso % (Auto) 0.1 Gran # 13.32 H Lymph # (Auto) 0.7 L [place] # (Auto) 0.6 Eos # (Auto) 0.1 Baso # (Auto) 0.02 Sodium 138 Potassium 4.0 Chloride 101 Carbon Dioxide 21 Anion Gap 20 BUN 45 H Creatinine 2.5 H Est GFR ( Amer) 32 Est GFR (Non-Af Amer) 26 POC Glucose (mg/dL) Random Glucose 319 H* Uric Acid Calcium 8.6 Phosphorus Magnesium Total Bilirubin 0.9 AST 23 ALT 29 Alkaline Phosphatase 98 Total Protein 6.5 Albumin 3.8 Globulin 2.6 Albumin/Globulin Ratio 1.5 Triglycerides Cholesterol LDL Cholesterol Direct HDL Cholesterol Procalcitonin TSH 3rd Generation Urine Color Urine Appearance Urine pH Ur Specific [place] Urine Protein Urine Glucose (UA) Urine Ketones Urine Blood Urine Nitrate Urine Bilirubin Urine Urobilinogen Ur Leukocyte Esterase Urine RBC Urine WBC Ur Epithelial Cells Amorphous Sediment Urine Bacteria Urine Eosinophils Ur Random Creatinine Ur Random Sodium 11/02/17 11/02/17 06:30 06:30 WBC RBC Hgb Hct MCV MCH MCHC RDW Plt Count MPV Gran % Lymph % (Auto) [place] % (Auto) Eos % (Auto) Baso % (Auto) Gran # Lymph # (Auto) [place] # (Auto) Eos # (Auto) Baso # (Auto) Sodium 138 Potassium 3.9 Chloride 105 Carbon Dioxide 23 Anion Gap 14 BUN 49 H Creatinine 2.8 H Est GFR ( Amer) 28 Est GFR (Non-Af Amer) 23 POC Glucose (mg/dL) Random Glucose 181 H Uric Acid 6.5 Calcium 7.8 L Phosphorus 3.1 Magnesium 2.1 Total Bilirubin 0.8 AST 25 ALT 30 Alkaline Phosphatase 72 Total Protein 5.7 L Albumin 3.3 Globulin 2.5 Albumin/Globulin Ratio 1.3 Triglycerides 165 H Cholesterol 116 L LDL Cholesterol Direct 58 HDL Cholesterol 28 L Procalcitonin TSH 3rd Generation 1.04 Urine Color Urine Appearance Urine pH Ur Specific [place] Urine Protein Urine Glucose (UA) Urine Ketones Urine Blood Urine Nitrate Urine Bilirubin Urine Urobilinogen Ur Leukocyte Esterase Urine RBC Urine WBC Ur Epithelial Cells Amorphous Sediment Urine Bacteria Urine Eosinophils Ur Random Creatinine Ur Random Sodium Assessment & Plan - Assessment and Plan (Free Text) Assessment: Assessment: Rectal cancer Status post hernia repair with incarcerated incisional pylorus stomal hernia with mesh, revision of colostomy Intractable nausea/vomiting Anemia History of CAD History of diabetes mellitus History of hypertension Plan: on clear liquids Zofran when necessary Continue IV after hydration Start GI prophylaxis Protonix 40 mg IV On Lovenox Monitor H&H and for overt GI bleed Monitor electrolytes and replete as necessary Surgical follow-up Thank you for this consult and for allowing us participate in your patient's care, further recommendations based upon clinical course. Seen and discussed with Dr. French.
--- NOTE | 2017-11-02 16:21 | PN ---
DATE: 11/02/2017 ENDOCRINOLOGY FOLLOWUP NOTE LOCATION: Room 275. SUBJECTIVE: This is a 62-year-old male with known history of rectal carcinoma, presenting here with marked hyperglycemic accelerations and is now being followed closely for metabolic management. His oral intake remains quite variable at this time as noted. His glucose values have improved overnight and the glucose levels have ranged from 172-194 mg/dL. His hemoglobin A1c is 8.2%. His chemistry showed a BUN of 49, sodium 138, potassium 3.9, chloride 105, CO2 of 23, glucose 181, and creatinine 2.8. ASSESSMENT: This is a 62-year-old male with rectal carcinoma and previous colon resection and chemotherapy and is now being followed closely for metabolic management because of recent hyperglycemic accelerations as noted thereof. PLAN OF MANAGEMENT: We will continue the same modified basal and bolus insulin regimen to allow for dose equilibration and keep him on the Humalog given as 6 units subcu t.i.d. before meals to start today as ordered. We will continue the basal insulin given as Levemir at 20 units subcu at bedtime daily to start tonight. We will continue the modified coverage scale using Humalog insulin as given at before meals and at bedtime as ordered. We will obtain serial chemistries and supplement accordingly as needed. We will follow. Pam Peters MD
[2017-11-02] MEDS: Sucralfate 1 gm/10 ml Oral Susp UD PO SCH (21:44)
[2017-11-02] MEDS ORDERED: Insulin Detemir 100 units/ml Vial (Levemir) SC SCH (22:00)
[2017-11-03] MEDS: Insulin Lispro (humaLOG) LOW Coverage SC SCH ×5 (00:17→21:18)
--- NOTE | 2017-11-03 02:58 | PN ---
DATE: 11/02/2017 SUBJECTIVE: The patient is seen lying in bed. He complains of nausea. He complains of constant vomiting. He reports that the entire nausea medication is only helping for 1 hour. He also admits to passing gas from the colostomy. He denies any chest pain. PHYSICAL EXAMINATION: GENERAL: Elderly male lying in bed. VITAL SIGNS: Blood pressure 141/80, heart rate 70, respiratory rate 16, temperature 98.3. HEENT: Normocephalic, atraumatic. NECK: Supple, no JVD. LUNGS: Bilateral equal air entry, bilateral equal expansion, no rales. CARDIAC: S1,S2. Regular rate and rhythm. No murmur, no rub. ABDOMEN: Distended, obese, bowel sounds sluggish. Positive colostomy. EXTREMITIES: No lower extremity edema. INTAKE AND OUTPUT: 1510/1370. LABORATORY DATA: WBC 14.8, hemoglobin 10, hematocrit 29.7, platelets 216. Sodium 138, potassium 3.9, chloride 105, CO2 of 23, BUN 49, creatinine 2.8, glucose 181, calcium 7.8, phosphorus 3.1, magnesium 2.1, uric acid 6.5. A1c 8.2. Albumin 3.3. Total cholesterol 116. Urinalysis yellow, slightly cloudy, pH 6, specific gravity 1.025, protein greater than 300, blood large. CURRENT MEDICATIONS: Benadryl, Carafate, Dilaudid, Flomax, insulin, Lopressor, Lovenox, Marinol, morphine, Protonix, Tylenol, Xanax and Zofran. ASSESSMENT: 1. Mild prerenal azotemia. 2. Hypertension. 3. Mild hypokalemia. 4. Stage III rectal cancer, status post colostomy. 5. Repair of incarcerated ____ hernia and colostomy revision postop day #2. 6. [id number] diabetes mellitus. 7. History of coronary artery disease. 8. Anemia. 9. Elevated WBC count. PLAN: 1. Continue antinausea medication. 2. Monitor fingersticks and continue insulin coverage. 3. Blood pressure seems to be acceptable at this time, continue Lopressor 25 b.i.d. 4. Avoid nephrotoxins. 5. Monitor urine output closely. Neelam Quick MD [facility] # [id number]
[2017-11-03 07:16] LABS: HEMOGLOBIN 9.6 g/dL (14.0-18.0); MEAN CELL VOLUME 84.4 fl (80.0-105.0); MEAN CORPUSCULAR HEMOGLOBIN 29.4 pg (25.0-35.0); MEAN CORPUSCULAR HGB CONC 34.9 g/dl (31.0-37.0); RBC 3.26 10^6/uL (3.5-6.1); RED CELL DISTRIBUTION WIDTH 13.1 % (11.5-14.5); WHITE BLOOD COUNT 10.9 10^3/ul (4.5-11.0)
[2017-11-03 08:14] LABS: ALB/GLOB RATIO 1.3 (1.1-1.8); ALBUMIN 3.4 g/dL (3.0-4.8); CALCIUM 7.5 mg/dL (8.4-10.5)
--- NOTE | 2017-11-03 08:14 | CP.PCM.PN ---
Subjective - Date & Time of Evaluation Date of Evaluation: 11/03/17 Time of Evaluation: 07:00 - Subjective Subjective: Patient seen and examined this AM. Patient states he is still having nausea and vomiting but is improving and he would like to eat cream of wheat today. patient reports gas from the ostomy but it is not observed on examination. pain currently well controlled on current regimen Objective - Vital Signs/Intake and Output Vital Signs (last 24 hours): Temp Pulse Resp BP Pulse Ox 99.6 F 76 20 128/87 97 11/03/17 06:00 11/03/17 06:00 11/03/17 06:00 11/03/17 06:00 11/03/17 06:00 Intake and Output: 11/03/17 11/03/17 06:59 18:59 Intake Total 450 Output Total 1200 Balance -750 - Medications Medications: Current Medications Acetaminophen (Tylenol 325mg Tab) 650 mg PO Q4H PRN PRN Reason: Pain, severe (8-10) Alprazolam (Xanax) 0.25 mg PO TID PRN; Protocol PRN Reason: Anxiety Diphenhydramine HCl (Benadryl) 25 mg IVP Q6H PRN PRN Reason: Restlessness Last Admin: 11/01/17 19:59 Dose: 25 mg Dronabinol (Marinol) 2.5 mg PO DAILY [facility] Last Admin: 11/02/17 13:05 Dose: 2.5 mg Enoxaparin Sodium (Lovenox) 30 mg SC DAILY [facility] PRN Reason: Protocol Last Admin: 11/02/17 09:44 Dose: 30 mg Hydromorphone HCl (Dilaudid) 0.5 mg IVP Q4H PRN PRN Reason: Pain, severe (8-10) Last Admin: 11/01/17 08:29 Dose: 0.5 mg Sodium Chloride (Sodium Chloride 0.9%) 1,000 mls @ 90 mls/hr IV .Q11H7M [facility] Last Admin: 11/02/17 18:01 Dose: 90 mls/hr Insulin Detemir (Levemir) 20 unit SC HS [facility] Last Admin: 11/03/17 00:17 Dose: Not Given Insulin Human Lispro (Humalog Low) 0 units SC [facility] PRN Reason: Protocol Last Admin: 11/03/17 07:57 Dose: Not Given Insulin Human Lispro (Humalog) 6 units SC AC [facility] Last Admin: 11/02/17 18:05 Dose: Not Given Lorazepam (Ativan) 0.5 mg IVP Q6H PRN; Protocol PRN Reason: Restlessness Last Admin: 11/01/17 20:00 Dose: 0.5 mg Metoprolol Tartrate (Lopressor) 25 mg PO BID [facility] Last Admin: 11/02/17 18:07 Dose: 25 mg Metoprolol Tartrate (Lopressor) 5 mg IVP Q6H PRN PRN Reason: Diastolic blood pressure Last Admin: 11/02/17 00:17 Dose: 5 mg Morphine Sulfate (Morphine) 3 mg IVP Q4H PRN PRN Reason: Pain, moderate (4-7) Ondansetron HCl (Zofran Inj) 8 mg IVP Q6H PRN PRN Reason: Nausea/Vomiting Last Admin: 11/03/17 02:42 Dose: 8 mg Pantoprazole Sodium (Protonix Inj) 40 mg IVP DAILY [facility] Last Admin: 11/02/17 12:07 Dose: 40 mg Sucralfate (Carafate Oral Susp) 1 gm PO Q12H [facility] Last Admin: 11/02/17 21:44 Dose: 1 gm Tamsulosin HCl (Flomax) 0.4 mg PO DAILY [facility] Last Admin: 11/02/17 09:44 Dose: 0.4 mg - Labs Labs: 11/03/17 07:10 11/02/17 06:30 - Constitutional Appears: Well, Non-toxic, No Acute Distress - Head Exam Head Exam: ATRAUMATIC, NORMOCEPHALIC - Eye Exam Eye Exam: Normal appearance. absent: Conjunctival injection, Scleral icterus - ENT Exam ENT Exam: Mucous Membranes Moist, Normal Oropharynx - Respiratory Exam Respiratory Exam: NORMAL BREATHING PATTERN. absent: Accessory Muscle Use, Respiratory Distress - Cardiovascular Exam Cardiovascular Exam: RRR - GI/Abdominal Exam GI & Abdominal Exam: Soft, Tenderness (sarina-incisional). absent: Distended Additional comments: midline incision well approximated by don, no erythema or drainage. Ostomy pink, patent, non-productive. - Extremities Exam Extremities Exam: absent: Calf Tenderness, Pedal Edema - Neurological Exam Neurological Exam: Alert, Awake, Oriented x3 - Psychiatric Exam Psychiatric exam: Normal Affect, Normal Mood - Skin Skin Exam: Dry, Normal Color, Warm Assessment and Plan - Assessment and Plan (Free Text) Assessment: 62M POD#3 s/p parastomal hernia repair with mesh, postoperative nausea and urinary retention Plan: Advance diet to full liquid diet as tolerated Monitor stoma for gas or stool Monitor urine output Follow up urology consult for postoperative urinary retention--appreciate recs-- continue caraballo Follow up nephrology, oncology, and medical recs Continue to monitor CBC/BMP---WBC wnl today Get patient out of bed ambulating and to chair PRN pain and nausea medication Continue to monitor drain output Discussed with Dr. Tomi Lind, PGY2
[2017-11-03] MEDS: Sucralfate 1 gm/10 ml Oral Susp UD PO SCH ×2 (08:30→21:14)
[2017-11-03] MEDS: Insulin Lispro 1 UNITS/0.01 ML SC SCH ×3 (08:42→17:31)
--- NOTE | 2017-11-03 10:12 | CP.PCM.PN ---
Subjective - Date & Time of Evaluation Date of Evaluation: 11/03/17 Time of Evaluation: 09:00 - Subjective Subjective: PGY-[address] Bruno's service Patient seen and examined at bedside. Patient states the continues to nauseous with vomiting however this morning it is better. He states that the pain in his abd occurs more so when he is vomiting or dry heaving. Patient states that he was able to eat some of his breakfast with vomiting. He states the medication is helping little bit. He report mild output from his colostomy along with gas. He states that he has been using the IS but it is painful. He denies chest pain , sob, fever, chills. Patient BP has been controlled. Objective - Vital Signs/Intake and Output Vital Signs (last 24 hours): Temp Pulse Resp BP Pulse Ox 99.6 F 76 20 128/87 97 11/03/17 06:00 11/03/17 06:00 11/03/17 06:00 11/03/17 06:00 11/03/17 06:00 Intake and Output: 11/03/17 11/03/17 06:59 18:59 Intake Total 450 Output Total 1200 Balance -750 - Medications Medications: Current Medications Acetaminophen (Tylenol 325mg Tab) 650 mg PO Q4H PRN PRN Reason: Pain, severe (8-10) Alprazolam (Xanax) 0.25 mg PO TID PRN; Protocol PRN Reason: Anxiety Diphenhydramine HCl (Benadryl) 25 mg IVP Q6H PRN PRN Reason: Restlessness Last Admin: 11/01/17 19:59 Dose: 25 mg Dronabinol (Marinol) 2.5 mg PO DAILY [facility] Last Admin: 11/02/17 13:05 Dose: 2.5 mg Enoxaparin Sodium (Lovenox) 30 mg SC DAILY [facility] PRN Reason: Protocol Last Admin: 11/02/17 09:44 Dose: 30 mg Hydromorphone HCl (Dilaudid) 0.5 mg IVP Q4H PRN PRN Reason: Pain, severe (8-10) Last Admin: 11/01/17 08:29 Dose: 0.5 mg Potassium Chloride 20 meq/ (Sodium Chloride) 1,010 mls @ 90 mls/hr IV .[id number] [facility] Insulin Detemir (Levemir) 20 unit SC HS [facility] Last Admin: 11/03/17 00:17 Dose: Not Given Insulin Human Lispro (Humalog Low) 0 units SC ACHS [facility] PRN Reason: Protocol Last Admin: 11/03/17 07:57 Dose: Not Given Insulin Human Lispro (Humalog) 6 units SC AC [facility] Last Admin: 11/03/17 08:42 Dose: Not Given Lorazepam (Ativan) 0.5 mg IVP Q6H PRN; Protocol PRN Reason: Restlessness Last Admin: 11/03/17 08:30 Dose: 0.5 mg Metoprolol Tartrate (Lopressor) 25 mg PO BID [facility] Last Admin: 11/02/17 18:07 Dose: 25 mg Metoprolol Tartrate (Lopressor) 5 mg IVP Q6H PRN PRN Reason: Diastolic blood pressure Last Admin: 11/02/17 00:17 Dose: 5 mg Ondansetron HCl (Zofran Inj) 8 mg IVP Q6H PRN PRN Reason: Nausea/Vomiting Last Admin: 11/03/17 02:42 Dose: 8 mg Pantoprazole Sodium (Protonix Inj) 40 mg IVP DAILY [facility] Last Admin: 11/02/17 12:07 Dose: 40 mg Sucralfate (Carafate Oral Susp) 1 gm PO Q12H [facility] Last Admin: 11/03/17 08:30 Dose: 1 gm Tamsulosin HCl (Flomax) 0.4 mg PO DAILY [facility] Last Admin: 11/02/17 09:44 Dose: 0.4 mg - Labs Labs: 11/03/17 07:10 11/03/17 07:10 - Constitutional Appears: No Acute Distress - Head Exam Head Exam: ATRAUMATIC, NORMOCEPHALIC - Eye Exam Eye Exam: EOMI, Normal appearance - ENT Exam ENT Exam: Mucous Membranes Moist - Respiratory Exam Respiratory Exam: Clear to Ausculation Bilateral, Rales, NORMAL BREATHING PATTERN. absent: Decreased Breath Sounds, Rhonchi, Wheezes, Respiratory Distress - Cardiovascular Exam Cardiovascular Exam: REGULAR RHYTHM, +S1, +S2. absent: Tachycardia, Murmur - GI/Abdominal Exam GI & Abdominal Exam: Soft, Tenderness, Normal Bowel Sounds Additional comments: colostomy in place. incision is clean and dry and intact - Extremities Exam Extremities Exam: Normal Inspection, Pedal Edema. absent: Tenderness - Neurological Exam Neurological Exam: Alert, Awake, Oriented x3 - Skin Skin Exam: Dry, Intact, Normal Color, Warm Assessment and Plan - Assessment and Plan (Free Text) Assessment: 62 yo male with PMH of carcinoma of the rectum T3 N1 M0, diabetes, CAD, CHF, hyperlipidemia, HTN,anemia presented for hernia repair of incarcerated parastomal hernia and revision of colonstomy pod #2. Plan: will continue to monitor abd drain and colostomy output on clear liquid diet, advance diet per surgery afebrile without leukocytosis continue abx Reglan given for n/v as well as Ativan and Benadryl for n/v n/v improved continue to monitor for patient can tolerate PO intake pain management per surgery hold oral hypoglycemic agents cont on levemir 20 units and lispro 6 units acs continue iss-low endocrinology consulted electrolytes within normal limits creatinine improved, FeNA suggestive of prerenal nephrology consulted caraballo catheter in place urology consulted for urinary retention BP controlled continue lopressor lovenox for dvt ppx continue incentive spirometer continue on home medications for cad including Lipitor PT evaluation , OOB case reviewed and discussed with Dr. Bruno
[2017-11-03] MEDS: Enoxaparin 30 mg Syringe SC SCH (10:26)
[2017-11-03] MEDS: POLYETHYLENE GLYCOL 3350 17 GM/Dose PACKET PO SCH ×2 (12:01→14:02)
--- NOTE | 2017-11-03 16:15 | CP.PCM.PN ---
Subjective - Date & Time of Evaluation Date of Evaluation: 11/03/17 Time of Evaluation: 10:10 - Subjective Subjective: Seen and examined at the bedside earlier today, chart review. Patient nausea improved, was able to tolerate cream of wheat and apple juice this morning. Patient status post dose of Marinol. Patient reports no stool via colostomy at. Patient endorses evaluated by surgery, stoma examined and stool palpated.No reports of overt GI bleeding. Objective - Vital Signs/Intake and Output Vital Signs (last 24 hours): Temp Pulse Resp BP Pulse Ox 97.4 F L 73 18 155/78 H 97 11/03/17 11:58 11/03/17 11:58 11/03/17 11:58 11/03/17 11:58 11/03/17 06:00 Intake and Output: 11/03/17 11/03/17 06:59 18:59 Intake Total 450 960 Output Total 1200 1000 Balance -750 -40 - Medications Medications: Current Medications Acetaminophen (Tylenol 325mg Tab) 650 mg PO Q4H PRN PRN Reason: Pain, severe (8-10) Alprazolam (Xanax) 0.25 mg PO TID PRN; Protocol PRN Reason: Anxiety Diphenhydramine HCl (Benadryl) 25 mg IVP Q6H PRN PRN Reason: Restlessness Last Admin: 11/01/17 19:59 Dose: 25 mg Dronabinol (Marinol) 2.5 mg PO DAILY [facility] Last Admin: 11/03/17 10:31 Dose: 2.5 mg Enoxaparin Sodium (Lovenox) 30 mg SC DAILY [facility] PRN Reason: Protocol Last Admin: 11/03/17 10:26 Dose: 30 mg Hydromorphone HCl (Dilaudid) 0.5 mg IVP Q4H PRN PRN Reason: Pain, severe (8-10) Last Admin: 11/01/17 08:29 Dose: 0.5 mg Potassium Chloride 20 meq/ (Sodium Chloride) 1,010 mls @ 90 mls/hr IV .[id number] [facility] Last Admin: 11/03/17 12:02 Dose: 90 mls/hr Insulin Detemir (Levemir) 22 unit SC HS [facility] Insulin Human Lispro (Humalog Low) 0 units SC [facility] PRN Reason: Protocol Last Admin: 11/03/17 11:49 Dose: Not Given Insulin Human Lispro (Humalog) 8 units SC [facility] Lorazepam (Ativan) 0.5 mg IVP Q6H PRN; Protocol PRN Reason: Restlessness Last Admin: 11/03/17 08:30 Dose: 0.5 mg Metoprolol Tartrate (Lopressor) 25 mg PO BID [facility] Last Admin: 11/03/17 10:26 Dose: 25 mg Metoprolol Tartrate (Lopressor) 5 mg IVP Q6H PRN PRN Reason: Diastolic blood pressure Last Admin: 11/02/17 00:17 Dose: 5 mg Ondansetron HCl (Zofran Inj) 8 mg IVP Q6H PRN PRN Reason: Nausea/Vomiting Last Admin: 11/03/17 02:42 Dose: 8 mg Pantoprazole Sodium (Protonix Inj) 40 mg IVP DAILY [facility] Last Admin: 11/03/17 10:26 Dose: 40 mg Polyethylene Glycol (Miralax) 17 gm PO DAILY [facility] Last Admin: 11/03/17 14:02 Dose: Not Given Sucralfate (Carafate Oral Susp) 1 gm PO Q12H [facility] Last Admin: 11/03/17 08:30 Dose: 1 gm Tamsulosin HCl (Flomax) 0.8 mg PO DAILY [facility] - Labs Labs: 11/03/17 07:10 11/03/17 07:10 - Constitutional Appears: No Acute Distress - Eye Exam Eye Exam: Normal appearance. absent: Scleral icterus - ENT Exam ENT Exam: Mucous Membranes Moist - Neck Exam Neck Exam: Normal Inspection - Respiratory Exam Respiratory Exam: NORMAL BREATHING PATTERN. absent: Respiratory Distress - Cardiovascular Exam Cardiovascular Exam: +S1, +S2 - GI/Abdominal Exam GI & Abdominal Exam: Soft, Normal Bowel Sounds. absent: Guarding, Tenderness ( mild tenderness near incision, no rebound/guarding), Rebound Additional comments: midline incision with don open to air, no drainage, colostomy in place no stool, stoma pink, no blood noted Assessment and Plan - Assessment and Plan (Free Text) Assessment: Assessment: Rectal cancer Status post hernia repair with incarcerated incisional pylorus stomal hernia with mesh, revision of colostomy Intractable nausea/vomiting, improved Anemia History of CAD History of diabetes mellitus History of hypertension Plan: on full liquids on Marinol Zofran prn Continue IV after hydration continue GI prophylaxis Protonix 40 mg IV On Lovenox Monitor H&H and for overt GI bleed Monitor electrolytes and replete as necessary Surgical follow-up Seen and discussed with Dr. French.
--- NOTE | 2017-11-03 19:07 | PN ---
DATE: 11/03/2017 ENDOCRINOLOGY FOLLOWUP NOTE LOCATION: Room 275. SUBJECTIVE: This is a 62-year-old male with known history of rectal carcinoma and received chemotherapy and prior colonic resection with a colostomy in place and is now being followed closely for metabolic management. His glycemic levels are fluctuating, but improved. His oral intake also remains quite variable as per the nursing staff. LABORATORY DATA: His glucose values have ranged from 154 to 258 mg/dL. His latest chemistries showed a BUN of 39, sodium 137, potassium 3.4, chloride 105, CO2 of 20, glucose 156, and creatinine 2.1. ASSESSMENT: This is a 62-year-old male with uncontrolled and decompensated type 2 insulin-requiring diabetes, presenting here with marked hyperglycemic accelerations and is now being followed closely for metabolic management. He also has diabetic microvascular complications of diabetic retinopathy, polyneuropathy, and nephropathy with diabetic macrovascular complications of coronary artery disease and peripheral arterial disease and vasculopathy. PLAN OF MANAGEMENT: We will modify once again his basal and bolus insulin regimen, which is actually a more physiologic insulin combination to optimize his metabolic control. We will increase his Humalog to 8 units subcu t.i.d. before meals to start at dinner time today as ordered. We will also increase the basal insulin with Levemir to be given as 22 units subcu at bedtime daily to start tonight. We will titrate incrementally as indicated to optimize metabolic control. We will continue the low-dose correction scale using Humalog insulin as given. We will follow. Pam Peters MD
[2017-11-03] MEDS: Sodium Chloride 0.9% 1,000 ML IV SCH (19:49)
[2017-11-03] MEDS: Piperacillin/Tazobact 3.375 gm 100 ML IVPB SCH ×2 (19:51→23:18)
[2017-11-03] MEDS: Insulin Detemir 100 units/ml Vial (Levemir) SC SCH (21:18)
[2017-11-03 23:44] VITALS: O2SAT 98
[2017-11-04] MEDS: Piperacillin/Tazobact 3.375 gm 100 ML IVPB SCH ×4 (05:17→23:34)
[2017-11-04 05:45] LABS: HEMOGLOBIN 9.1 g/dL (14.0-18.0); MEAN CELL VOLUME 84.1 fl (80.0-105.0); MEAN CORPUSCULAR HEMOGLOBIN 29.4 pg (25.0-35.0); MEAN PLATELET VOLUME 9.2 fl (7.0-11.0); RBC 3.09 10^6/uL (3.5-6.1); RED CELL DISTRIBUTION WIDTH 13.1 % (11.5-14.5); WHITE BLOOD COUNT 8.7 10^3/ul (4.5-11.0)
[2017-11-04 05:51] LABS: ALB/GLOB RATIO 1.2 (1.1-1.8); CALCIUM 7.2 mg/dL (8.4-10.5)
--- NOTE | 2017-11-04 07:47 | CON ---
DATE: 11/03/2017 GENITOURINARY CONSULTATION CHIEF COMPLAINT: Urinary retention. HISTORY OF PRESENT ILLNESS: This is a 62-year-old male with a history of rectal carcinoma who recently underwent a repair of ventral and parastomal hernias. Postoperatively, he had urinary retention, he was straight cath and the catheter was removed. The following day, again, he was unable to void and a Richards catheter was placed. The patient does report a history of BPH and voiding dysfunction. He has been maintained at home on tamsulosin. He reports he was voiding at home with a slow stream; mild frequency; nocturia, two to three times per night. He is currently feeling well. No fever or chills as the Richards catheter in place. PAST MEDICAL HISTORY: Significant for diabetes, hypertension, rectal carcinoma. MEDICATIONS: Currently include Ativan, Benadryl, Carafate, Dilaudid, Flomax, insulin, Lopressor, Lovenox, Marinol, MiraLax, Tylenol and Zofran. ALLERGIES: NO KNOWN DRUG ALLERGIES. FAMILY HISTORY: Noncontributory for this admission. SOCIAL HISTORY: Positive for smoking in the past. No current smoking. No EtOH use. REVIEW OF SYSTEMS: A 12-point review of systems was obtained. Positive for some abdominal pain, some feeling tired, postoperatively urinary retention, chronic back pain, mild numbness and tingling of the lower extremities. Other systems are negative. PHYSICAL EXAMINATION: GENERAL: The patient is awake and alert. He is answering questions. He is in no acute distress. VITAL SIGNS: He is afebrile. Temperature of 99.6, pulse of 70, BP 128/87, respirations 20. NECK: Supple. There is no adenopathy. CHEST: Reveals normal inspiratory effort. CARDIAC: Shows positive S1, S2. There is no peripheral edema noted. ABDOMEN: Soft, nontender, nondistended. There is incision in place, which is clean and dry with don in place. There is a colostomy, which is viable and functioning. There is no costovertebral angle tenderness. GENITOURINARY: Phallus is normal. There is a Richards catheter in place draining clear-colored urine. Scrotum is normal. Testes bilaterally descended, nontender, no masses. Epididymis are normal. No pertinent radiologic exams. LABORATORY DATA: Urinalysis showed 2 to 5 wbc's, too numerous to count rbc's, negative nitrates. GFR of 32, it appears to be his baseline. No urine culture available. IMPRESSION AND PLAN: This is a 62-year-old male with a history of abdominoperineal resection as well as benign prostatic hypertrophy. He is having postoperative urinary retention, possibly from benign prostatic hypertrophy, possibly from some element of neurogenic bladder secondary to abdominoperineal resection. Plan for now will be to continue Richards catheter drainage. If medically okay, I would increase his tamsulosin to 2 capsules daily. Continue postoperative care. If the patient is to be discharged in the immediate future, I would send him home with the Richards catheter, he could follow up in my office for a voiding trial. If the patient is going to rehab, I would plan on a voiding trial in a few days after he is on the increased dose of Flomax and he has recovered adequately from his surgery. Thank you for allowing me to participate the care of this patient. We will follow him with you. Malik Aguilar MD
[2017-11-04] MEDS: Insulin Lispro (humaLOG) LOW Coverage SC SCH ×3 (08:30→22:00)
[2017-11-04] MEDS: Insulin Lispro 1 UNITS/0.01 ML SC SCH ×3 (08:30→18:05)
--- NOTE | 2017-11-04 08:46 | CP.PCM.PN ---
Subjective - Date & Time of Evaluation Date of Evaluation: 11/04/17 Time of Evaluation: 07:10 - Subjective Subjective: Pt seen and examined this AM. No adverse events overnight. Patient states that his nausea and vomiting is much improved and he was able to tolerate cream of wheat. Patient had stool output from his ostomy yesterday. Pain is currently well controlled and he is asking if he may go home today Objective - Vital Signs/Intake and Output Vital Signs (last 24 hours): Temp Pulse Resp BP Pulse Ox 98.1 F 73 73 H 161/81 H 98 11/04/17 06:00 11/04/17 06:00 11/04/17 06:00 11/04/17 06:00 11/04/17 06:00 Intake and Output: 11/04/17 11/04/17 06:59 18:59 Intake Total 730 Output Total 700 Balance 30 - Medications Medications: Current Medications Acetaminophen (Tylenol 325mg Tab) 650 mg PO Q4H PRN PRN Reason: Pain, severe (8-10) Alprazolam (Xanax) 0.25 mg PO TID PRN; Protocol PRN Reason: Anxiety Diphenhydramine HCl (Benadryl) 25 mg IVP Q6H PRN PRN Reason: Restlessness Last Admin: 11/01/17 19:59 Dose: 25 mg Dronabinol (Marinol) 2.5 mg PO DAILY [facility] Last Admin: 11/03/17 10:31 Dose: 2.5 mg Enoxaparin Sodium (Lovenox) 30 mg SC DAILY [facility] PRN Reason: Protocol Last Admin: 11/03/17 10:26 Dose: 30 mg Hydromorphone HCl (Dilaudid) 0.5 mg IVP Q4H PRN PRN Reason: Pain, severe (8-10) Last Admin: 11/01/17 08:29 Dose: 0.5 mg Piperacillin Sod/Tazobactam Sod (Zosyn 3.375 In Ns 100ml) 100 mls @ 200 mls/hr IVPB Q6 [facility] PRN Reason: Protocol Stop: 11/05/17 06:29 Last Admin: 11/04/17 05:17 Dose: 200 mls/hr Insulin Detemir (Levemir) 22 unit SC [facility] Last Admin: 11/03/17 21:18 Dose: Not Given Insulin Human Lispro (Humalog Low) 0 units SC ACHS [facility] PRN Reason: Protocol Last Admin: 11/04/17 08:30 Dose: Not Given Insulin Human Lispro (Humalog) 8 units SC AC [facility] Last Admin: 11/04/17 08:30 Dose: Not Given Lorazepam (Ativan) 0.5 mg IVP Q6H PRN; Protocol PRN Reason: Restlessness Last Admin: 11/03/17 18:37 Dose: 0.5 mg Metoprolol Tartrate (Lopressor) 25 mg PO BID [facility] Last Admin: 11/03/17 17:29 Dose: 25 mg Metoprolol Tartrate (Lopressor) 5 mg IVP Q6H PRN PRN Reason: Diastolic blood pressure Last Admin: 11/02/17 00:17 Dose: 5 mg Ondansetron HCl (Zofran Inj) 8 mg IVP Q6H PRN PRN Reason: Nausea/Vomiting Last Admin: 11/03/17 02:42 Dose: 8 mg Pantoprazole Sodium (Protonix Inj) 40 mg IVP DAILY [facility] Last Admin: 11/03/17 10:26 Dose: 40 mg Polyethylene Glycol (Miralax) 17 gm PO DAILY [facility] Last Admin: 11/03/17 14:02 Dose: Not Given Sucralfate (Carafate Oral Susp) 1 gm PO Q12H [facility] Last Admin: 11/03/17 21:14 Dose: 1 gm Tamsulosin HCl (Flomax) 0.8 mg PO DAILY [facility] - Labs Labs: 11/04/17 05:30 11/04/17 05:30 - Constitutional Appears: Well, Non-toxic, No Acute Distress - Head Exam Head Exam: ATRAUMATIC, NORMOCEPHALIC - Eye Exam Eye Exam: Normal appearance - Respiratory Exam Respiratory Exam: NORMAL BREATHING PATTERN. absent: Accessory Muscle Use, Respiratory Distress - Cardiovascular Exam Cardiovascular Exam: RRR - GI/Abdominal Exam GI & Abdominal Exam: Tenderness (sarina-incisional). absent: Distended, Soft Additional comments: ostomy pink, patent, and productive of solid stool. yasmani drain with minimal amount of serosanguinous fluid. incision well approximated by don, no erythema or swelling - Extremities Exam Extremities Exam: absent: Calf Tenderness, Pedal Edema, Tenderness - Neurological Exam Neurological Exam: Alert, Awake, Oriented x3 - Psychiatric Exam Psychiatric exam: Normal Affect, Normal Mood - Skin Skin Exam: Dry, Normal Color, Warm Assessment and Plan - Assessment and Plan (Free Text) Assessment: 62M S/P open parastomal hernia repair Plan: Continue to monitor CBC and BMP--hgb 9.1 from 9.6 but likely delayed drop postoperatively, not d/t active bleed Coordinate home nursing visits, insulin education, and ostomy care with casemanagement Plan for dicharge to home tomorrow AM Continue to monitor bowel function from ostomy Urinary catheter will remain upon discharge to follow up with Dr. Aguilar in his office for void trial as an outpatient D/C yasmani drain Discussed with Dr. Krishna, Dr. Rodríguez, and Dr. Bruno's resident, Dr. Riya Lind, PGY2
[2017-11-04] MEDS: Enoxaparin 30 mg Syringe SC SCH (10:49)
[2017-11-04] MEDS: Sucralfate 1 gm/10 ml Oral Susp UD PO SCH ×2 (10:49→21:57)
[2017-11-04] MEDS: POLYETHYLENE GLYCOL 3350 17 GM/Dose PACKET PO SCH (11:01)
--- NOTE | 2017-11-04 11:10 | CP.PCM.PN ---
Subjective - Date & Time of Evaluation Date of Evaluation: 11/04/17 Time of Evaluation: 09:00 - Subjective Subjective: PGY-[address] Bruno's service Patient seen and examined at bedside. Patient states the continues to have mild nauseous without vomiting. Last episode of emesis was yesterday. He states that the pain in his abd is mild worse with dry heaving. Patient states that he was able to eat some of his breakfast this morning and dinner the night before. . He report good output from his colostomy along with gas. He states that he has been using the IS. He denies chest pain, sob, fever, chills. Patient BP has been controlled. Patient is agreeable to be discharged with visiting nurses at home. Objective - Vital Signs/Intake and Output Vital Signs (last 24 hours): Temp Pulse Resp BP Pulse Ox 98.1 F 73 73 H 161/81 H 98 11/04/17 06:00 11/04/17 10:49 11/04/17 06:00 11/04/17 10:49 11/04/17 06:00 Intake and Output: 11/04/17 11/04/17 06:59 18:59 Intake Total 730 Output Total 700 Balance 30 - Medications Medications: Current Medications Acetaminophen (Tylenol 325mg Tab) 650 mg PO Q4H PRN PRN Reason: Pain, severe (8-10) Alprazolam (Xanax) 0.25 mg PO TID PRN; Protocol PRN Reason: Anxiety Diphenhydramine HCl (Benadryl) 25 mg IVP Q6H PRN PRN Reason: Restlessness Last Admin: 11/01/17 19:59 Dose: 25 mg Dronabinol (Marinol) 2.5 mg PO DAILY [facility] Last Admin: 11/04/17 10:51 Dose: 2.5 mg Enoxaparin Sodium (Lovenox) 30 mg SC DAILY [facility] PRN Reason: Protocol Last Admin: 11/04/17 10:49 Dose: 30 mg Hydromorphone HCl (Dilaudid) 0.5 mg IVP Q4H PRN PRN Reason: Pain, severe (8-10) Last Admin: 11/01/17 08:29 Dose: 0.5 mg Piperacillin Sod/Tazobactam Sod (Zosyn 3.375 In Ns 100ml) 100 mls @ 200 mls/hr IVPB Q6 [facility] PRN Reason: Protocol Stop: 11/05/17 06:29 Last Admin: 11/04/17 11:02 Dose: 200 mls/hr Insulin Detemir (Levemir) 22 unit SC HS [facility] Last Admin: 11/03/17 21:18 Dose: Not Given Insulin Human Lispro (Humalog Low) 0 units SC ACHS [facility] PRN Reason: Protocol Last Admin: 11/04/17 08:30 Dose: Not Given Insulin Human Lispro (Humalog) 8 units SC AC [facility] Last Admin: 11/04/17 08:30 Dose: Not Given Lorazepam (Ativan) 0.5 mg IVP Q6H PRN; Protocol PRN Reason: Restlessness Last Admin: 11/03/17 18:37 Dose: 0.5 mg Metoprolol Tartrate (Lopressor) 25 mg PO BID [facility] Last Admin: 11/04/17 10:49 Dose: 25 mg Metoprolol Tartrate (Lopressor) 5 mg IVP Q6H PRN PRN Reason: Diastolic blood pressure Last Admin: 11/02/17 00:17 Dose: 5 mg Ondansetron HCl (Zofran Inj) 8 mg IVP Q6H PRN PRN Reason: Nausea/Vomiting Last Admin: 11/03/17 02:42 Dose: 8 mg Pantoprazole Sodium (Protonix Inj) 40 mg IVP DAILY [facility] Last Admin: 11/04/17 10:49 Dose: 40 mg Polyethylene Glycol (Miralax) 17 gm PO DAILY [facility] Last Admin: 11/04/17 11:01 Dose: Not Given Sucralfate (Carafate Oral Susp) 1 gm PO Q12H [facility] Last Admin: 11/04/17 10:49 Dose: 1 gm Tamsulosin HCl (Flomax) 0.8 mg PO DAILY [facility] Last Admin: 11/04/17 10:50 Dose: 0.8 mg - Labs Labs: 11/04/17 05:30 11/04/17 05:30 - Constitutional Appears: Well, No Acute Distress - Head Exam Head Exam: ATRAUMATIC, NORMOCEPHALIC - Eye Exam Eye Exam: EOMI, Normal appearance - ENT Exam ENT Exam: Mucous Membranes Moist - Respiratory Exam Respiratory Exam: Clear to Ausculation Bilateral, NORMAL BREATHING PATTERN. absent: Decreased Breath Sounds, Rales, Rhonchi, Wheezes, Respiratory Distress - Cardiovascular Exam Cardiovascular Exam: REGULAR RHYTHM, +S1, +S2. absent: Bradycardia, Tachycardia , Murmur - GI/Abdominal Exam GI & Abdominal Exam: Soft, Tenderness, Normal Bowel Sounds. absent: Distended, Firm Additional comments: ostomy in place, with brawn stool. incision clean, dry and intact Assessment and Plan - Assessment and Plan (Free Text) Assessment: 62 yo male with PMH of carcinoma of the rectum T3 N1 M0, diabetes, CAD, CHF, hyperlipidemia, HTN,anemia presented for hernia repair of incarcerated parastomal hernia and revision of colonstomy. Plan: will continue to monitor abd drain and colostomy output drain will be removed per surgery today on regular diet advance diet per surgery afebrile without leukocytosis continue abx for total of 1 week Reglan given for n/v as well as Ativan and Benadryl for n/v as needed n/v improved continue to monitor for patient is tolerate PO intake pain management per surgery hold oral hypoglycemic agents cont on levemir 20 units and lispro 6 units acs continue iss-low endocrinology consulted, will follow for recommendation for discharge electrolytes within normal limits creatinine improved, FeNA suggestive of prerenal nephrology consulted caraballo catheter in place continue flomax urology consulted for urinary retention, recommends to continue with caraballo and follow up out patient for voiding trial BP controlled continue lopressor Hgb downtrending, will continue to monitor, will transfusion if needed continue incentive spirometer continue on home medications for cad including Lipitor PT evaluation , OOB case reviewed and discussed with Dr. Bruno
--- NOTE | 2017-11-04 13:58 | CP.PCM.PN ---
Subjective - Date & Time of Evaluation Date of Evaluation: 11/04/17 Time of Evaluation: 09:50 - Subjective Subjective: Seen and examined at the bedside earlier today, chart review. Patient reports improvement of nausea, able to tolerate oral intake. No further episodes of vomiting. Patient reports large amount of brown stool via colostomy. Does have discomfort at times at incisional site but report systems tolerable. Objective - Vital Signs/Intake and Output Vital Signs (last 24 hours): Temp Pulse Resp BP Pulse Ox 98.3 F 69 18 163/84 H 98 11/04/17 11:41 11/04/17 11:41 11/04/17 11:41 11/04/17 11:41 11/04/17 06:00 Intake and Output: 11/04/17 11/04/17 06:59 18:59 Intake Total 730 Output Total 700 Balance 30 - Medications Medications: Current Medications Acetaminophen (Tylenol 325mg Tab) 650 mg PO Q4H PRN PRN Reason: Pain, severe (8-10) Alprazolam (Xanax) 0.25 mg PO TID PRN; Protocol PRN Reason: Anxiety Diphenhydramine HCl (Benadryl) 25 mg IVP Q6H PRN PRN Reason: Restlessness Last Admin: 11/01/17 19:59 Dose: 25 mg Dronabinol (Marinol) 2.5 mg PO DAILY [facility] Last Admin: 11/04/17 10:51 Dose: 2.5 mg Enoxaparin Sodium (Lovenox) 30 mg SC DAILY [facility] PRN Reason: Protocol Last Admin: 11/04/17 10:49 Dose: 30 mg Hydromorphone HCl (Dilaudid) 0.5 mg IVP Q4H PRN PRN Reason: Pain, severe (8-10) Last Admin: 11/01/17 08:29 Dose: 0.5 mg Piperacillin Sod/Tazobactam Sod (Zosyn 3.375 In Ns 100ml) 100 mls @ 200 mls/hr IVPB Q6 [facility] PRN Reason: Protocol Stop: 11/05/17 06:29 Last Admin: 11/04/17 11:02 Dose: 200 mls/hr Insulin Detemir (Levemir) 22 unit SC [facility] Last Admin: 11/03/17 21:18 Dose: Not Given Insulin Human Lispro (Humalog Low) 0 units SC ACHS [facility] PRN Reason: Protocol Last Admin: 11/04/17 13:10 Dose: Not Given Insulin Human Lispro (Humalog) 8 units SC AC [facility] Last Admin: 11/04/17 13:09 Dose: Not Given Lorazepam (Ativan) 0.5 mg IVP Q6H PRN; Protocol PRN Reason: Restlessness Last Admin: 11/03/17 18:37 Dose: 0.5 mg Metoprolol Tartrate (Lopressor) 25 mg PO BID [facility] Last Admin: 11/04/17 10:49 Dose: 25 mg Metoprolol Tartrate (Lopressor) 5 mg IVP Q6H PRN PRN Reason: Diastolic blood pressure Last Admin: 11/02/17 00:17 Dose: 5 mg Ondansetron HCl (Zofran Inj) 8 mg IVP Q6H PRN PRN Reason: Nausea/Vomiting Last Admin: 11/04/17 13:27 Dose: 8 mg Pantoprazole Sodium (Protonix Inj) 40 mg IVP DAILY [facility] Last Admin: 11/04/17 10:49 Dose: 40 mg Polyethylene Glycol (Miralax) 17 gm PO DAILY [facility] Last Admin: 11/04/17 11:01 Dose: Not Given Sucralfate (Carafate Oral Susp) 1 gm PO Q12H [facility] Last Admin: 11/04/17 10:49 Dose: 1 gm Tamsulosin HCl (Flomax) 0.8 mg PO DAILY [facility] Last Admin: 11/04/17 10:50 Dose: 0.8 mg - Labs Labs: 11/04/17 05:30 11/04/17 05:30 - Constitutional Appears: No Acute Distress - Head Exam Head Exam: NORMOCEPHALIC - Eye Exam Eye Exam: Normal appearance. absent: Scleral icterus - ENT Exam ENT Exam: Mucous Membranes Moist - Respiratory Exam Respiratory Exam: Clear to Ausculation Bilateral, NORMAL BREATHING PATTERN. absent: Respiratory Distress - Cardiovascular Exam Cardiovascular Exam: +S1, +S2 - GI/Abdominal Exam GI & Abdominal Exam: Soft, Normal Bowel Sounds. absent: Guarding, Organomegaly , Rebound Additional comments: colostomy with pink stoma, liquid brown stool noted. Incision don open to air area was cleansed by surgery as per patient. Mild tenderness on mild palpation near incisional area - Extremities Exam Extremities Exam: Normal Capillary Refill. absent: Calf Tenderness, Pedal Edema - Neurological Exam Neurological Exam: Alert, Awake, Oriented x3 Assessment and Plan - Assessment and Plan (Free Text) Assessment: Assessment: Rectal cancer Status post hernia repair with incarcerated incisional parastomal hernia with mesh, revision of colostomy Improved Intractable nausea/vomiting Anemia History of CAD History of diabetes mellitus History of hypertension Plan: on carbohydrate diet on Marinol Zofran prn Continue IV after hydration continue GI prophylaxis Protonix 40 mg IV On Lovenox Monitor H&H and for overt GI bleed Monitor electrolytes and replete as necessary Surgical follow-up Seen and discussed with Dr. French.
--- NOTE | 2017-11-04 14:39 | PN ---
DATE: 11/04/2017 ENDOCRINOLOGY FOLLOWUP NOTE LOCATION: Room 275. SUBJECTIVE: This is a 62-year-old male with recent uncontrolled type 2 insulin-requiring diabetes, now being followed closely for metabolic management. He also received recent chemotherapy for underlying rectal carcinoma as noted thereof. His glycemic levels are fluctuating but improved and the latest glucose levels today have ranged from 126-171 mg/dL. His latest chemistries showed a BUN of 35, sodium 137, potassium 3.6, chloride 106, CO2 of 22, glucose 128, and creatinine 2. So, at this time, we will continue the modified basal and bolus insulin regimen to allow for dose equilibration and keep him on the Humalog given as 8 units subcu t.i.d. before meals as ordered. We will continue the Levemir given as basal insulin at 22 units subcu at bedtime daily as given. We will titrate incrementally as indicated to optimize metabolic control. We will also request our diabetic nurse educator, Ms. Angelica Santoyo, to teach the patient insulin self-administration as he has actually never been on insulin prior to this admission. We will follow. Pam Peters MD
--- NOTE | 2017-11-04 14:58 | PN ---
DATE: 11/04/2017 SUBJECTIVE: The patient is seen lying in bed. He is awake. He is alert. He reports feeling better. He still has occasional dry heaves. No nausea. No vomiting. PHYSICAL EXAMINATION: GENERAL: Elderly male lying in bed. VITAL SIGNS: Blood pressure 163/84, heart rate 69, respiratory rate 18, temperature 98.3. HEENT: Normocephalic, atraumatic, positive pallor. NECK: Supple, no JVD. LUNGS: Bilateral equal air entry, bilaterally equal expansion, no rales. CARDIAC: S1 and S2, regular rate and rhythm, no murmur, no rub. ABDOMEN: Distended, soft, positive bowel sounds, positive colostomy. EXTREMITIES: No lower extremity edema. INTAKE AND OUTPUT: 1690/1700. LABORATORY DATA: WBC 8.7, hemoglobin 9, hematocrit 26, platelets 84. Sodium 137, potassium 3.6, chloride 106, CO2 22, BUN 35, creatinine 2, glucose 128, calcium 7.2, albumin 3, corrected calcium is 7.9, globulins 2.4. CURRENT MEDICATIONS: Ativan, Benadryl, Carafate, Dilaudid, Flomax, insulin Levemir, Lopressor 25 b.i.d., Lovenox, Marinol, MiraLax, Protonix, Xanax, Zofran, Zosyn. ASSESSMENT AND PLAN: 1. Acute kidney injury, resolving. 2. Underlying chronic kidney disease, stage III. 3. Hypokalemia. 4. Hypocalcemia. 5. Severe anemia. 6. Noninsulin-dependent diabetes mellitus. 7. Hypertension. PLAN: 1. Replace potassium, this might be because of GI losses. 2. Check intact PTH and phosphorus, perhaps has secondary hyperparathyroidism. 3. He will need outpatient followup with Nephrology. 4. Urinalysis showed 3+ proteinuria and hematuria needs to be repeated. 5. Continue Lopressor 25 b.i.d. Neelam Quick MD
[2017-11-04] MEDS: Insulin Detemir 100 units/ml Vial (Levemir) SC SCH (21:58)
[2017-11-05] MEDS: Piperacillin/Tazobact 3.375 gm 100 ML IVPB SCH (06:46)
[2017-11-05 07:14] LABS: BASO # 0.02 K/mm3 (0.0-2.0); BASO % 0.2 % (0.0-3.0); EOS # 0.3 (0.0-0.7); EOS % 3.4 % (1.5-5.0); GRAN # 7.24 (1.4-6.5); GRAN % 81.3 % (50.0-68.0); HEMOGLOBIN 9.3 g/dL (14.0-18.0); LYMPH # 0.9 (1.2-3.4); LYMPH % 10.6 % (22.0-35.0); MEAN CELL VOLUME 82.2 fl (80.0-105.0); MEAN CORPUSCULAR HGB CONC 35.2 g/dl (31.0-37.0); MONO # 0.4 (0.1-0.6); MONO % 4.5 % (1.0-6.0); RBC 3.21 10^6/uL (3.5-6.1); RED CELL DISTRIBUTION WIDTH 12.6 % (11.5-14.5); WHITE BLOOD COUNT 8.9 10^3/ul (4.5-11.0)
[2017-11-05 07:38] LABS: ALB/GLOB RATIO 1.2 (1.1-1.8); ALBUMIN 3.1 g/dL (3.0-4.8); CALCIUM 7.5 mg/dL (8.4-10.5)
[2017-11-05] MEDS: Insulin Lispro (humaLOG) LOW Coverage SC SCH ×2 (08:35→12:54)
[2017-11-05] MEDS ORDERED: Potassium Chloride 20 mEq ER Tab PO ONE (09:19)
[2017-11-05] MEDS: Sucralfate 1 gm/10 ml Oral Susp UD PO SCH (10:34)
[2017-11-05] MEDS: POLYETHYLENE GLYCOL 3350 17 GM/Dose PACKET PO SCH (10:36)
--- NOTE | 2017-11-05 11:51 | CP.PCM.DIS ---
Provider - Provider Date of Admission: 10/31/17 05:58 Attending physician: Luis Krishna MD Time Spent in preparation of Discharge (in minutes): 8 Diagnosis - Discharge Diagnosis (1) Parastomal hernia Status: Resolved Priority: High Hospital Course - Lab Results Lab Results: Micro Results 10/31/17 06:30 Nose MRSA Culture (Admit) - Final MRSA NOT DETECTED Most Recent Lab Values WBC 8.9 10^3/ul (4.5-11.0) 11/05/17 06:30 RBC 3.21 10^6/uL (3.5-6.1) L 11/05/17 06:30 Hgb 9.3 g/dL (14.0-18.0) L 11/05/17 06:30 Hct 26.4 % (42.0-52.0) L 11/05/17 06:30 MCV 82.2 fl (80.0-105.0) 11/05/17 06:30 MCH 29.0 pg (25.0-35.0) 11/05/17 06:30 MCHC 35.2 g/dl (31.0-37.0) 11/05/17 06:30 RDW 12.6 % (11.5-14.5) 11/05/17 06:30 Plt Count 225 10^3/uL (120.0-450.0) 11/05/17 06:30 MPV 9.0 fl (7.0-11.0) 11/05/17 06:30 Gran % 81.3 % (50.0-68.0) H 11/05/17 06:30 Lymph % (Auto) 10.6 % (22.0-35.0) L 11/05/17 06:30 Cass % (Auto) 4.5 % (1.0-6.0) 11/05/17 06:30 Eos % (Auto) 3.4 % (1.5-5.0) 11/05/17 06:30 Baso % (Auto) 0.2 % (0.0-3.0) 11/05/17 06:30 Gran # 7.24 (1.4-6.5) H 11/05/17 06:30 Lymph # (Auto) 0.9 (1.2-3.4) L 11/05/17 06:30 Cass # (Auto) 0.4 (0.1-0.6) 11/05/17 06:30 Eos # (Auto) 0.3 (0.0-0.7) 11/05/17 06:30 Baso # (Auto) 0.02 K/mm3 (0.0-2.0) 11/05/17 06:30 Neutrophils % (Manual) 91 % (50.0-70.0) H 11/01/17 06:38 Band Neutrophils % 1 % (0-2) 11/01/17 06:38 Lymphocytes % (Manual) 2 % (22.0-35.0) L 11/01/17 06:38 Monocytes % (Manual) 5 % (1.0-6.0) 11/01/17 06:38 Eosinophils % (Manual) 1 % (0.0-3.0) 11/01/17 06:38 Platelet Evaluation Normal (NORMAL) 11/01/17 06:38 Sodium 138 mmol/L (132-148) 11/05/17 06:30 Potassium 3.2 mmol/L (3.6-5.0) L 11/05/17 06:30 Chloride 106 mmol/L (98-107) 11/05/17 06:30 Carbon Dioxide 22 mmol/L (21-33) 11/05/17 06:30 Anion Gap 13 (10-20) 11/05/17 06:30 BUN 29 mg/dL (7-21) H 11/05/17 06:30 Creatinine 2.0 mg/dl (0.8-1.5) H 11/05/17 06:30 Est GFR ( Amer) 41 11/05/17 06:30 Est GFR (Non-Af Amer) 34 11/05/17 06:30 POC Glucose (mg/dL) 93 mg/dL (65-110) 11/05/17 11:15 Random Glucose 80 mg/dL (70-110) 11/05/17 06:30 Hemoglobin A1c 8.2 % (4.2-6.5) H 11/04/17 05:30 Uric Acid 6.5 mg/dL (3.5-8.5) 11/02/17 06:30 Calcium 7.5 mg/dL (8.4-10.5) L 11/05/17 06:30 Phosphorus 2.0 mg/dL (2.5-4.5) L 11/04/17 05:30 Magnesium 2.1 mg/dL (1.7-2.2) 11/02/17 06:30 Total Bilirubin 0.8 mg/dL (0.2-1.3) 11/05/17 06:30 AST 24 U/L (17-59) 11/05/17 06:30 ALT 27 U/L (7-56) 11/05/17 06:30 Alkaline Phosphatase 71 U/L (38-126) 11/05/17 06:30 Total Protein 5.8 g/dL (5.8-8.3) 11/05/17 06:30 Albumin 3.1 g/dL (3.0-4.8) 11/05/17 06:30 Globulin 2.6 gm/dL 11/05/17 06:30 Albumin/Globulin Ratio 1.2 (1.1-1.8) 11/05/17 06:30 Triglycerides 165 mg/dL (35-160) H 11/02/17 06:30 Cholesterol 116 mg/dL (130-200) L 11/02/17 06:30 LDL Cholesterol Direct 58 mg/dL (0-129) 11/02/17 06:30 HDL Cholesterol 28 mg/dL (29-60) L 11/02/17 06:30 Procalcitonin 0.51 NG/ML (0.19-0.49) H 11/01/17 13:00 TSH 3rd Generation 1.04 mIU/mL (0.46-4.68) 11/02/17 06:30 Urine Color yellow (YELLOW) 11/01/17 18:41 Urine Appearance Slight-cloudy (CLEAR) 11/01/17 18:41 Urine pH 6.0 (4.7-8.0) 11/01/17 18:41 Ur Specific [place] 1.025 (1.005-1.035) 11/01/17 18:41 Urine Protein >=300 mg/dL (<30 mg/dL) H 11/01/17 18:41 Urine Glucose (UA) >=1000 mg/dL (NEGATIVE) 11/01/17 18:41 Urine Ketones Trace mg/dL (NEGATIVE) H 11/01/17 18:41 Urine Blood Large (NEGATIVE) H 11/01/17 18:41 Urine Nitrate Negative (NEGATIVE) 11/01/17 18:41 Urine Bilirubin Negative (NEGATIVE) 11/01/17 18:41 Urine Urobilinogen 0.2 E.U./dL (<1 E.U./dL) 11/01/17 18:41 Ur Leukocyte Esterase Negative Vaishali/uL (NEGATIVE) 11/01/17 18:41 Urine RBC Tntc /hpf (0-2) 11/01/17 18:41 Urine WBC 2 - 5 /hpf (0-6) 11/01/17 18:41 Ur Epithelial Cells 6 - 8 /hpf (0-5) 11/01/17 18:41 Amorphous Sediment Small 11/01/17 18:41 Urine Bacteria Trace (NEG) 11/01/17 18:41 Urine Eosinophils Neg 11/01/17 18:41 Ur Random Creatinine 79 mg/dL 11/01/17 18:41 Ur Random Sodium 40 meq/L 11/01/17 18:41 Blood Type B POSITIVE 10/31/17 06:30 Antibody Screen Negative 10/31/17 06:30 BBK History Checked Patient has bt 10/31/17 06:30 - Hospital Course Hospital Course: 62M presented to [facility] [place] for elective repair of parastomal & ventral hernias on 10/31. Pt was taken to the OR for repair and he tolerated the procedure well. Post -op pt was admitted to the hospital to monitor properly functioning ostomy and diet tolerance. pt was started on clears and diet was slowly advanced. post-op course was complicated by bouts of N/V and urinary retention for which a caraballo was re-inserted & urology consult was obtained. Pt started having normal output in the ostomy and N/V has resolved. He is tolerating regular diet and ambulating without difficulty. Per urology recs, pt will be DC home with caraballo and f/u as outpt for removal. Pt will also f/u with Dr. Krishna in 1-2 weeks. Discharge Exam - Head Exam Head Exam: ATRAUMATIC, NORMOCEPHALIC - Eye Exam Eye Exam: Normal appearance - ENT Exam ENT Exam: Mucous Membranes Moist - Respiratory Exam Respiratory Exam: NORMAL BREATHING PATTERN - Cardiovascular Exam Cardiovascular Exam: RRR - GI/Abdominal Exam GI & Abdominal Exam: Soft. absent: Distended, Guarding Additional comments: midline incision with don in place; ostomy with soft stool in bag - Neurological Exam Neurological exam: Alert, Oriented x3 - Skin Skin Exam: Dry, Warm Discharge Plan - Discharge Medications Prescriptions: Cephalexin [cephalexin] 500 mg PO BID #14 cap Insulin Detemir [Levemir] 22 unit SC HS #4 vial Insulin Lispro [humALOG] 8 units SC AC #4 ml - Follow Up Plan Condition: GOOD Disposition: HOME/ ROUTINE Additional Instructions: Call Dr. Krishna's office to schedule and appointment in one week Follow up with Dr. Marie, Dr. Bruno, and Dr. Aguilar in one week. Urinary Caraballo will be removed by Dr. Aguilar, continue taking the tamsulosin 2tabs/ day. Record urine output daily Coat your midline incision with betadine once a day. Remove the dressing over your drain site after 2 days You may shower but do not soak in a bath tub or swim Take antibiotics full course and the pain meds as needed. Take stool softeners with the pain medication Walk 3 times a day Call Dr. Krishna's office or come to ER for fever >100.4 that does not improve with tylenol, large amount of drainage from the incisions, or any other concerning symptoms. Referrals: Iona Bruno MD [Family Provider] - Malik Aguilar MD [Staff Provider] - Luis Krishna MD [Staff Provider] - Freddy Rodríguez MD [Staff Provider] -
[2017-11-05 12:08] VITALS: BP 171/82; RESP 19; TEMP 98.3
--- NOTE | 2017-11-05 12:38 | PN ---
DATE: 11/05/2017 SUBJECTIVE: The patient is currently seen lying comfortable in bed eating breakfast. He states he will likely to be discharged home later today. Of note, the patient's potassium is 3.2. This will be supplemented prior to discharge. The patient has been trained on the use of insulin. He states he would like to get off insulin in the outpatient setting and go back to oral medication. MEDICATIONS: Medication list reviewed. The patient is currently on Ativan, Benadryl, Carafate, p.r.n. Dilaudid, Flomax, insulin, Lopressor, Marinol, MiraLax, Protonix, Tylenol p.r.n., Xanax p.r.n. and Zofran p.r.n. OBJECTIVE: INTAKE/OUTPUT: Intake 780, output 2500. VITAL SIGNS: Blood pressure 157/85, temperature 98.7, respiratory rate 18 with pulse of 89. Oxygen saturation is 98%. HEENT: Shows him to be normocephalic, atraumatic. Conjunctivae are pale. Sclerae are nonicteric. NECK: Supple. No neck vein distention. CHEST: Clear to auscultation and percussion. No rales, rhonchi or wheezing. CARDIOVASCULAR: Regular rate and rhythm without murmurs, rubs or gallops. ABDOMEN: Normal bowel sounds. Drains are out. Left lower quadrant colostomy. No rebound or guarding. EXTREMITIES: No cyanosis, clubbing or edema. Pulses are 2+ bilaterally. LABORATORY DATA AND IMAGING: CBC from today shows a white blood cell count of 8.9, hemoglobin 9.3 with a platelet count of 225,000. Chemistries show a potassium of 3.2, sodium 138, chloride 106, CO2 of 22, BUN 29 with a creatinine of 2. This is at the lower range of his baseline. Glucose is 80. Calcium is 7.5 with an albumin level of 3.1, corrects to normal. Liver enzymes are normal. ASSESSMENT: 1. Chronic kidney disease stage 3, stable. Status post elevated BUN and creatinine. These have returned to normal with adequate hydration. 2. Status post mild hypokalemia. This was present on admission. The patient has been borderline hypokalemic. His potassium level today is 3.2. He will receive two 20 mEq tablets of potassium prior to discharge home and he will eat an unrestricted potassium diet upon discharge. 3. History of stage 3 rectal cancer, status post colostomy. He is status post repair of an incarcerated peristomal hernia and colostomy revision. 4. History of [id number] diabetes mellitus. The patient is currently on insulin under the guidance of Dr. Peters. I told him he should not return to metformin because his creatinine is greater than 1.6. We did discuss the possibility if he does switch off of insulin of taking perhaps a sulfonylurea. 5. History of atherosclerotic heart disease, history of congestive heart failure, history of coronary artery bypass graft. The patient appears to be stable. He will continue on beta-jhonny therapy. 6. History of mild anemia secondary to underlying rectal cancer. 7. History of mild hyperlipidemia. The patient will likely continue back on statin therapy along with diet therapy upon discharge. PLAN: 1. Explained to the patient that his BUN and creatinine are well within his baseline range and perhaps at the lower range of his baseline. 2. From renal standpoint, it is okay for discharge later today. 3. The patient will receive potassium supplements prior to discharge. 4. The patient is welcome to follow up with us in the outpatient setting for his chronic kidney disease stage 3. Toño Rodriguez MD
--- NOTE | 2017-11-05 15:56 | PN ---
DATE: 11/05/2017 ENDOCRINOLOGY FOLLOWUP NOTE LOCATION: In room 275. SUBJECTIVE: This is a 62-year-old male with recent uncontrolled type 2 insulin-requiring diabetes, now being followed closely for metabolic management. He also has ongoing chemotherapy for known history of rectal carcinoma. His oral intake has been quite variable as per the nursing staff and today's glucose values have been in the low side of normal as noted. His glucose values have ranged from 77-93 mg/dL. His latest chemistry showed a BUN of 29, sodium 138, potassium 3.2, chloride 106, CO2 of 22, glucose 80 and creatinine 2. With the progressive renal insufficiency, I would expect lower insulin requirements at this time as noted. So for now, we will discontinue actually his prandial insulin given as Humalog at 8 units t.i.d. before meals as ordered. We will switch him over to oral hypoglycemic therapy with Amaryl given as 4 mg b.i.d. before breakfast and dinner to start today as ordered. We will modify the coverage scale to obviate hypoglycemia and detailed orders have been given. We will also lower the basal insulin with Levemir to be given as 16 units subcu at bedtime daily to start tonight. We will titrate incrementally as indicated to optimize metabolic control. We will follow and advise accordingly. Pam Peters MD
[2017-11-05 18:15] VITALS: PULSE 66
[2017-11-05] MEDS ORDERED: Insulin Detemir 100 units/ml Vial (Levemir) SC SCH (22:00)
--- NOTE | 2017-11-06 01:26 | PN ---
DATE: 11/05/2017 ONCOLOGY PROGRESS NOTE LOCATION: Patient is in room 275, bed 1. SUBJECTIVE: Patient is being followed by us with a history of stage 3 carcinoma of the rectum, status post neoadjuvant chemotherapy, radiation, followed by rectal surgery with AP resection and colostomy. Following which, the patient received three cycles of FOLFOX chemotherapy. Patient has a history of coronary artery disease with stent placement. Subsequent to these treatments, patient's BUN and creatinine had jumped up. He has mild chronic kidney dysfunction with the creatinine ranging between 1.9 and 2.3. Patient also has diabetes mellitus for which he has been on outpatient oral drugs. Currently, patient while in the hospital had acute on chronic kidney injury post surgery as he was admitted for symptomatic ventral hernia, which has to be repaired as he was symptomatic. Patient in the hospital, was being trained to use insulin as the sugars were running high. His potassium was been trending down for which he has been getting IV potassium replacement as well. Patient tells me that he would likely get off insulin as an outpatient, go back to oral medication. He still has his Richards catheter in place and may have to leave it in until it is removed as an outpatient after urologic intervention. CURRENT MEDICATIONS: Patient's current medications were reviewed. He is currently on Ativan, Benadryl, Carafate p.r.n., Dilaudid, Flomax, insulin, Lopressor, Marinol, MiraLax, Protonix, Tylenol p.r.n., Xanax p.r.n., and Zofran p.r.n. PHYSICAL EXAMINATION: VITAL SIGNS: Stable. Blood pressure is 147/85, T-max is 98.4, respirations 18 with the pulse of 89, O2 sat is 98%. HEENT: Head is normocephalic, atraumatic. Conjunctivae pale. Sclerae are anicteric. Pupils are equally reactive to light and accommodation. Patient wears reading glasses, glasses for normal vision. NECK: Supple. There is no adenopathy. No jugular venous distention noted. OROPHARYNX: Examination of the oropharynx reveals no oropharyngeal lesion. Tongue is moist. No ulcerations are noted. LUNGS: Clear to percussion and auscultation. CARDIOVASCULAR SYSTEM: Reveals S1 and S2 to be normal. No gallop or murmur is heard. ABDOMEN: Soft. Drains are out. Left lower quadrant colostomy is functioning. No rebound, rigidity or guarding is noted. Patient has a mesh repair of the hernia. Surgical site appears to be dry. EXTREMITIES: Reveal no cyanosis, clubbing, or edema. Pulses are 2+ bilaterally. LABORATORY DATA: Showed white count of 8.9, hemoglobin 9.2 with the platelet count 225,000. K is 3.2 with the sodium of 138, chloride is 106, CO2 is 22, BUN of 29 with the creatinine of 2, this is a lower range of his baseline, glucose is 80, calcium is 7.5, albumin of 3.1, corrected albumin is normal. Liver enzymes are normal. ASSESSMENT NOTES AND PLAN: Patient has stage 3 carcinoma of the rectum, status post neoadjuvant chemotherapy, radiation surgery; permanent colostomy; post chemotherapy; chronic kidney disease, which is stable; diabetes mellitus; coronary artery disease; status post mild hypokalemia; atherosclerotic heart disease; mild anemia from his underlying malignancy; history of hyperlipidemia. RECOMMENDATIONS: I have told the patient that his BUN and creatinine, which is baseline, but he still needs to watch. His kidney functions have to be watched as he has also proteinuria and advised him to follow up with the nutrition worker as an outpatient. Patient will need to be monitored also for his diabetes and I have told him he may need to have his medications adjusted in view of his kidney dysfunction. I told the patient to have definitely a follow up with the nutrition worker and the bill of materials clerk or shrimp packer as an outpatient in view of his CKD 3 . Patient is planning to move to [place]. He is willing to see me at least one more time prior to move, so that we can find him all his requirements before his move to [place]. Routine post-exam instructions have been given to the patient. Time spent with the patient greater than 45 minutes. Iona Bruno MD
== END 2017-11-05 16:32 | disposition home or self-care (01) | DRG 354 ==
LOC: SDAINP 05:58 → EDSTATUS 07:30 → 5RNO 12:58 → 2RSO 11-01 21:08
PROVIDERS: ADMIT General Practice; ATTEND General Practice
PROC: 0WQF0ZZ Repair Abdominal Wall, Open Approach (ICD-10-PCS; principal; 2017-10-31 07:30)
PROC: 0WUF0JZ Supplement Abdominal Wall with Synthetic Substitute, Open Approach (ICD-10-PCS; 2017-10-31 07:30)
DX: K43.0 Incisional hernia with obstruction, without gangrene (principal); C20 Malignant neoplasm of rectum; I13.0 Hypertensive heart and chronic kidney disease with heart failure and stage 1 through stage 4 chronic kidney disease, or unspecified chronic kidney disease; N17.9 Acute kidney failure, unspecified; K43.5 Parastomal hernia without obstruction or gangrene; D64.9 Anemia, unspecified; D72.829 Elevated white blood cell count, unspecified; E11.21 Type 2 diabetes mellitus with diabetic nephropathy; E11.22 Type 2 diabetes mellitus with diabetic chronic kidney disease; E11.319 Type 2 diabetes mellitus with unspecified diabetic retinopathy without macular edema; E11.42 Type 2 diabetes mellitus with diabetic polyneuropathy; E11.51 Type 2 diabetes mellitus with diabetic peripheral angiopathy without gangrene; E11.59 Type 2 diabetes mellitus with other circulatory complications; E11.65 Type 2 diabetes mellitus with hyperglycemia; E78.5 Hyperlipidemia, unspecified; E83.51 Hypocalcemia; E87.5 Hyperkalemia; E87.6 Hypokalemia; I25.10 Atherosclerotic heart disease of native coronary artery without angina pectoris; I50.9 Heart failure, unspecified; K21.9 Gastro-esophageal reflux disease without esophagitis; K43.2 Incisional hernia without obstruction or gangrene; N18.3 Chronic kidney disease, stage 3 (moderate); N40.1 Benign prostatic hyperplasia with lower urinary tract symptoms; R33.8 Other retention of urine; Z79.4 Long term (current) use of insulin; Z80.0 Family history of malignant neoplasm of digestive organs; Z85.048 Personal history of other malignant neoplasm of rectum, rectosigmoid junction, and anus; Z87.891 Personal history of nicotine dependence; Z90.49 Acquired absence of other specified parts of digestive tract; Z92.21 Personal history of antineoplastic chemotherapy; Z95.1 Presence of aortocoronary bypass graft; Z95.5 Presence of coronary angioplasty implant and graft

== ENCOUNTER 2018-10-24 05:09 | Outpatient (CLI) | payer MEDICARE, OTHER | END 2018-10-24 05:10 | disposition home or self-care (01) | LOC: PET-BROA 05:09 ==

== ENCOUNTER 2018-11-05 18:52 | Inpatient (IN) | payer MEDICARE, OTHER ==
[2018-11-05] MEDS ORDERED: Iohexol 240 (50 ml) ONE (19:37)
[2018-11-05 20:06] LABS: HEMOGLOBIN 14.8 g/dL (14.0-18.0); MEAN CELL VOLUME 85.5 fl (80.0-105.0); MEAN CORPUSCULAR HEMOGLOBIN 29.8 pg (25.0-35.0); MEAN CORPUSCULAR HGB CONC 34.8 g/dl (31.0-37.0); MEAN PLATELET VOLUME 9.3 fl (7.0-11.0); RBC 4.97 10^6/uL (3.5-6.1); RED CELL DISTRIBUTION WIDTH 13.3 % (11.5-14.5); WHITE BLOOD COUNT 10.2 10^3/uL (4.5-11.0)
[2018-11-05] MEDS: Sodium Chloride 0.9% 1,000 ML IV SCH (20:07)
[2018-11-05 20:16] LABS: ALB/GLOB RATIO 1.3 (1.1-1.8); ALBUMIN 4.6 g/dL (3.0-4.8); CALCIUM 9.7 mg/dL (8.4-10.5)
--- NOTE | 2018-11-05 20:23 | ED PDOC ---
Arrival/HPI - General Chief Complaint: Abdominal Pain Time Seen by Provider: 11/05/18 19:16 Historian: Patient - History of Present Illness Narrative History of Present Illness (Text): 11/05/18 20:20 A 63 year old male, whose past medical history includes CABG colorectal CA, colostomy, diabetes, and hypertension, presents to the emergency department complaining of left lower abdominal discomfort and a few episodes of vomiting s maricarmen yesterday. Patient reports also experiencing occasional burning sensation to across abdomen. Patient denies any fever, chills, diarrhea, or any other complaints at this time. Time/Duration: 24 hours Past Medical History - Provider Review Nursing Documentation Reviewed: Yes - Cardiac Hx Pacemaker: No - Pulmonary Hx Respiratory Disorders: No - Neurological Hx Paralysis: No - HEENT Hx HEENT Disorder: Yes (glasses) - Endocrine/Metabolic Hx Endocrine Disorders: Yes (diet controlled diabetes) Hx Diabetes Mellitus Type 2: Yes - Hematological/Oncological Hx Blood Transfusions: Yes (06/04/15) Hx Blood Transfusion Reaction: No - Integumentary Other/Comment: surgical dressings x2 to abd christo x2 to abd left abd colostomy - Musculoskeletal/Rheumatological Hx Musculoskeletal Disorders: Yes (BACK DISCOMFORT AT TIMES) - Gastrointestinal Hx Gastrointestinal Disorders: Yes (weight loss) Hx Bowel Surgery: Yes Hx Colostomy: Yes - Genitourinary/Gynecological Hx Genitourinary Disorders: No Hx Reproductive Disorders: No - Psychiatric Hx Emotional Abuse: No Hx Physical Abuse: No Hx Substance Use: No - Surgical History Hx Coronary Artery Bypass Graft: Yes Hx Coronary Stent: Yes Hx Open Heart Surgery: Yes Hx Valve Replacement: Yes - Anesthesia Hx Anesthesia Reactions: No Hx Malignant Hyperthermia: No - Suicidal Assessment Feels Threatened In Home Enviroment: No Family/Social History - Physician Review Nursing Documentation Reviewed: Yes Family/Social History: No Known Family HX Smoking Status: Never Smoked Hx Alcohol Use: Yes (OCCASIONAL ETOH USE) Hx Substance Use: No Allergies/Home Meds Allergies/Adverse Reactions: Allergies No Known Allergies Allergy (Verified 11/05/18 19:00) Home Medications: Home Meds Medication Instructions Recorded Confirmed Metoprolol Tartrate [Lopressor] 25 mg PO DAILY 09/30/15 11/05/18 Review of Systems - Physician Review All systems were reviewed & negative as marked: Yes - Review of Systems Constitutional: absent: Fevers, Night Sweats Gastrointestinal: Abdominal Pain (left lower abdominal discomfort and occasional burning sensation across abdomen), Vomiting. absent: Diarrhea Physical Exam Vital Signs Reviewed: Yes Vital Signs Temp Pulse Resp BP Pulse Ox 11/05/18 19:00 97.9 F 99 H 19 152/75 H 95 Temperature: Afebrile Blood Pressure: Normal Pulse: Regular Respiratory Rate: Normal Appearance: Positive for: Well-Appearing, Non-Toxic, Comfortable Pain Distress: None Mental Status: Positive for: Alert and Oriented X 3 - Systems Exam Head: Present: Atraumatic, Normocephalic Pupils: Present: PERRL Extroacular Muscles: Present: EOMI Conjunctiva: Present: Normal Mouth: Present: Moist Mucous Membranes Neck: Present: Normal Range of Motion Respiratory/Chest: Present: Clear to Auscultation, Good Air Exchange. No: Respiratory Distress, Accessory Muscle Use Cardiovascular: Present: Regular Rate and Rhythm, Normal S1, S2. No: Murmurs Abdomen: Present: Tenderness (LLQ region), Other (colostomy intact, stool in bag). No: Distention, Peritoneal Signs Back: Present: Normal Inspection Upper Extremity: Present: Normal Inspection. No: Cyanosis, Edema Lower Extremity: Present: Normal Inspection. No: Edema Neurological: Present: GCS=15, CN II-XII Intact, Speech Normal Skin: Present: Warm, Dry, Normal Color. No: Rashes Psychiatric: Present: Alert, Oriented x 3, Normal Insight, Normal Concentration Medical Decision Making ED Course and Treatment: 11/05/18 20:22 Impression: 63 male with left lower abdominal discomfort, few episodes of vomiting, and occasional burning sensation to across abdomen. Physical exam shows tenderness to LLQ region; colostomy intact with stool in bag. Plan: -- EKG -- Abd/Pelvis CT -- Labs -- IV Fluids -- Reassess and disposition Progress Notes: EKG: Ordered, reviewed, and independently interpreted the EKG. Rate : 93 BPM Rhythm : NSR Interpretation : Right Bundle Branch Block, LPHB, inferior infarct. Comparison : No previous EKG for comparison. 11/05/18 23:00 CT Abdomen and Pelvis: LUNG BASES: The lung bases appear clear. No pleural effusions are seen. LIVER: Unremarkable. GALLBLADDER AND BILE DUCTS: The gallbladder appears within normal limits. No radioopaque gallstones are seen. No biliary ductal dilatation is evident. PANCREAS: Unremarkable. SPLEEN: Unremarkable. ADRENAL GLANDS: Unremarkable. KIDNEYS, URETERS, AND BLADDER: The kidneys appear within normal limits. There is no hydronephrosis or hydroureter. No urinary calculi are seen. The urinary bladder appeared normal in size and configuration. STOMACH AND BOWEL: Unremarkable appearance of the stomach. There has been previous colectomy of the lower descending, sigmoid, rectosigmoid colon and rectum. A left lower quadrant enterostomy is noted. Oral contrast agent has traversed the gastrointestinal tract and is seen within the collection bag. There is some parastomal herniation noted of small intestine and fat. There is no evidence of strangulation or obstruction. APPENDIX: No evidence of acute appendicitis on CT examination. PERITONEUM: No free fluid. No free air. A small right inguinal hernia is identified which contains fat. LYMPH NODES: No lymphadenopathy is evident. REPRODUCTIVE: Unremarkable as visualized. VASCULATURE: No evidence of abdominal aortic aneurysm. Extensive atherosclerotic vascular plaquing is noted. BONES: No aggressive appearing osseous lesion. No acute osseous pathology evident. IMPRESSION: 1. Status post prior colectomy of the lower descending, sigmoid, rectosigmoid colon and rectum. 2. A left lower quadrant enterostomy is noted. 3. Left parastomal hernia as described above. 4. A small right inguinal hernia is noted which contains fat. Electronically signed on November 05, 2018 10:24:55 PM EDT by: Juan Carlos Ronquillo M.D., M.B.A., Certified By [employer] Trained MRI and CT Specialist Case discussed with Dr. French, GI, who recommends pt stay on clear fluids. 11/05/18 23:[address] Bruno, who is aware and agrees with plan. Pt will go to [facility] observation for abdominal pain. Requests Dr. French and Dr. Krishna on consult. - Lab Interpretations Lab Results: Total Bilirubin 1.0 mg/dL (0.2-1.3) 11/05/18 19:40 AST 27 U/L (17-59) 11/05/18 19:40 ALT 23 U/L (7-56) 11/05/18 19:40 Alkaline Phosphatase 105 U/L (38-126) 11/05/18 19:40 Total Protein 8.1 g/dL (5.8-8.3) 11/05/18 19:40 Albumin 4.6 g/dL (3.0-4.8) 11/05/18 19:40 Globulin 3.5 gm/dL 11/05/18 19:40 Albumin/Globulin Ratio 1.3 (1.1-1.8) 11/05/18 19:40 Lipase 634 U/L (23-300) H 11/05/18 19:40 I have reviewed the lab results: Yes - RAD Interpretation Radiology Orders: 11/05/18 19:56 ABD & PELVIS PO CONTRAST ONLY [CT] Stat Knapsack Sprayer: Radiologist - EKG Interpretation Interpreted by ED Physician: Yes Type: 12 lead EKG - Medication Orders Current Medication Orders: Sodium Chloride (Sodium Chloride 0.9%) 1,000 mls @ 100 mls/hr IV .Q10H DANIEL Last Admin: 11/05/18 20:07 Dose: 100 mls/hr eMAR Start Stop Document 11/05/18 20:07 EQ (Rec: 11/05/18 20:07 EQ [id number]) Intravenous Solution Start Date 11/05/18 Start Time 20:07 - Scribe Statement The provider has reviewed the documentation as recorded by the Rosana Haney Provider Scribe Attestation: All medical record entries made by the Vanessaibsid were at my direction and personally dictated by me. I have reviewed the chart and agree that the record accurately reflects my personal performance of the history, physical exam, medical decision making, and the department course for this patient. I have also personally directed, reviewed, and agree with the discharge instructions and disposition. Disposition/Present on Arrival - Present on Arrival Any Indicators Present on Arrival: No History of DVT/PE: No History of Uncontrolled Diabetes: No Urinary Catheter: Yes (inserted in or) History of Decub. Ulcer: No History Surgical Site Infection Following: None - Disposition Have Diagnosis and Disposition been Completed?: Yes Diagnosis: Abdominal pain Disposition: HOSPITALIZED Disposition Time: 00:03 Patient Problems: Current Active Problems Problem Status Onset Abdominal pain Acute Condition: STABLE
[2018-11-06 02:09] VITALS: BMI 23.8
[2018-11-06] MEDS ORDERED: Morphine 2 mg/ml ISec IVP PRN (05:56)
[2018-11-06] MEDS ORDERED: Dextrose 50% SYRINGE Inj (50 ml) IV PRN (05:56)
[2018-11-06] MEDS: Insulin Reg-MEDIUM-Coverage SC SCH ×4 (08:02→22:32)
[2018-11-06] MEDS ORDERED: NuLYTELY (NACL/NAHCO3/KCL/PEG) 4L PO STA (09:05)
[2018-11-06] MEDS ORDERED: Bisacodyl 5mg EC Tab PO ONE (09:05)
--- NOTE | 2018-11-06 09:14 | CARD ---
APPROVED REPORT Date of service: 11/05/2018 EKG Measurement Heart [id number] <Conclusion> Normal sinus rhythm Right bundle branch block, plus right ventricular hypertrophy Left posterior fascicular block Bifascicular block Inferior infarct, age undetermined Abnormal ECG
--- NOTE | 2018-11-06 10:32 | CP.PCM.CON ---
History of Present Illness - History of Present Illness History of Present Illness: PGY1 Medicine Consult Note for Dr. Krishna Patient is a 63-year-old M with PMH Colorectal cancer s/p Colostomy and s/p Hernia repair of incarcerated incisional parastomal hernia with mesh and revision of colostomy (10/2017), CHF, anemia, hypertension, diabetes mellitus, CAD s/p CABG, hyperlipidemia who [place] [facility] lower quadrant discomfort and a few episodes of vomiting x2 days. Patient reports that he noticed a "budge" near the site of his colostomy for about 3 months. Patient came in at this time due to intermittent burning pain x 1 day prior to admission. Patient states he appreciated 2 bouts of bloody discharge in his colostomy; further compelling him to come in for evaluation. Patient admits to nausea and vomiting (non-bloody, non-bilious). Patient otherwise denies fever, chills, diarrhea, chest pain, shortness of breath, numbness/tingling, yellowing of the skin, diaphoresis, and/or headache. PMH: Colorectal cancer, CHF, anemia, hypertension, diabetes mellitus, CAD, hyperlipidemia PSH: Colostomy, Hernia repair of incarcerated incisional parastomal hernia with mesh and revision of colostomy (10/2017), CABG Social Hx: Former smoker (20 years), social alcohol use, denies recreational drugs Family Hx: Noncontributory at this time Allergies: No known drug allergies Medications: Reviewed as per MAR Review of Systems - Review of Systems All systems: reviewed and no additional remarkable complaints except (as noted in HPI) Past Patient History - Past Social History Smoking Status: Former Smoker - CARDIAC Hx Cardiac Disorders: Yes (quintuple bypass) Hx Hypertension: Yes Hx 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) Hx Pacemaker: No - PULMONARY Hx Respiratory Disorders: No - NEUROLOGICAL Hx Neurological Disorder: No - HEENT Hx HEENT Problems: Yes (glasses) - RENAL Hx Chronic Kidney Disease: Yes (due to chemo) - ENDOCRINE/METABOLIC Hx Endocrine Disorders: Yes Hx Diabetes Mellitus Type 2: Yes - HEMATOLOGICAL/ONCOLOGICAL Hx Blood Disorders: Yes Hx Anemia: Yes (blood transfusion 06/04/15) Hx Cancer: Yes (colorectal ca dx 03/22/2015 st 2) Hx Chemotherapy: Yes - INTEGUMENTARY Hx Dermatological Problems: No Other/Comment: abd left abd colostomy - MUSCULOSKELETAL/RHEUMATOLOGICAL Hx Falls: No - GASTROINTESTINAL Hx Gastrointestinal Disorders: Yes Hx Colostomy: Yes (left colostomy) Other/Comment: colorectal ca - GENITOURINARY/GYNECOLOGICAL Hx Genitourinary Disorders: No - PSYCHIATRIC Hx Substance Use: No - SURGICAL HISTORY Hx Surgeries: Yes (left colostomy) Hx Cardiac Catheterization: Yes Hx Coronary Stent: Yes Hx Open Heart Surgery: Yes (quintuple bypass) Hx Valve Replacement: Yes (mvr) - ANESTHESIA Hx Anesthesia Reactions: No Hx Malignant Hyperthermia: No Meds Allergies/Adverse Reactions: Allergies Allergy/AdvReac Type Severity Reaction Status Date / Time No Known Allergies Allergy Verified 11/05/18 19:00 - Medications Medications: Current Medications Dextrose (Dextrose 50% Inj) 0 ml IV STAT PRN; Protocol PRN Reason: Hypoglycemia Protocol Sodium Chloride (Sodium Chloride 0.9%) 1,000 mls @ 100 mls/hr IV .Q10H [facility] Last Admin: 11/05/18 20:07 Dose: 100 mls/hr Dextrose (Dextrose 5% In Water 1000 Ml) 1,000 mls @ 0 mls/hr IV .Q0M PRN; Protocol PRN Reason: Hypoglycemia Protocol Insulin Human Regular (Humulin R Med) 0 units SC ACHS DANIEL; Protocol Last Admin: 11/06/18 08:02 Dose: Not Given Metoprolol Tartrate (Lopressor) 25 mg PO DAILY [facility] Last Admin: 11/06/18 09:42 Dose: Not Given Ondansetron HCl (Zofran Inj) 4 mg IVP Q4H PRN PRN Reason: Nausea/Vomiting Tamsulosin HCl (Flomax) 0.8 mg PO DAILY [facility] Last Admin: 11/06/18 09:41 Dose: Not Given Physical Exam - Constitutional Appears: Non-toxic, No Acute Distress - Head Exam Head Exam: ATRAUMATIC, NORMAL INSPECTION, NORMOCEPHALIC - Eye Exam Eye Exam: EOMI, Normal appearance, PERRL Pupil Exam: NORMAL ACCOMODATION, PERRL - ENT Exam ENT Exam: Mucous Membranes Moist, Normal Exam - Neck Exam Neck exam: Positive for: Normal Inspection - Respiratory Exam Respiratory Exam: NORMAL BREATHING PATTERN. absent: Wheezes, Respiratory Distress - Cardiovascular Exam Cardiovascular Exam: REGULAR RHYTHM. absent: JVD - GI/Abdominal Exam GI & Abdominal Exam: Soft. absent: Guarding, Tenderness Additional comments: Colostomy intact, stool in bag No Distention No Peritoneal Signs No erythema and/or oozing Results - Vital Signs Recent Vital Signs: Last Vital Signs Temp 97.9 F 11/06/18 07:51 Pulse 68 11/06/18 07:51 Resp 20 11/06/18 07:51 BP 134/74 11/06/18 07:51 Pulse Ox 98 11/06/18 07:51 - Labs Result Diagrams: 11/05/18 19:40 11/05/18 19:40 Labs: Laboratory Results - last 24 hr 11/05/18 11/05/18 11/06/18 19:40 19:40 07:47 WBC 10.2 RBC 4.97 Hgb 14.8 D Hct 42.5 MCV 85.5 D MCH 29.8 MCHC 34.8 RDW 13.3 Plt Count 222 MPV 9.3 Sodium 138 Potassium 4.1 Chloride 100 Carbon Dioxide 25 Anion Gap 17 BUN 59 H Creatinine 3.6 H Est GFR ( Amer) 21 Est GFR (Non-Af Amer) 17 POC Glucose (mg/dL) 98 Random Glucose 100 Calcium 9.7 Total Bilirubin 1.0 AST 27 ALT 23 Alkaline Phosphatase 105 Total Protein 8.1 Albumin 4.6 Globulin 3.5 Albumin/Globulin Ratio 1.3 Lipase 634 H Assessment & Plan - Assessment and Plan (Free Text) Assessment: Patient is a 63-year-old M with PMH Colorectal cancer s/p Colostomy and s/p Hernia repair of incarcerated incisional parastomal hernia with mesh and revision of colostomy (10/2017), CHF, anemia, hypertension, diabetes mellitus, CAD s/p CABG, hyperlipidemia who [place] [facility] [place] lower quadrant discomfort and a few episodes of vomiting x2 days. Plan: Medical management per medical team Patient to follow-up with Dr. Krishna's office for hernia repair as an out-patient Monitor bowel function Pain management d/w Dr. Tomi Mirza PGY1
--- NOTE | 2018-11-06 10:53 | CT ---
Date of service: 11/05/2018 PROCEDURE: CT Abdomen and Pelvis without intravenous contrast HISTORY: PAIN COMPARISON: None. TECHNIQUE: Without contrast.. Contrast dose: 0 Radiation dose: Total exam DLP = 745.81 mGy-cm. This CT exam was performed using one or more of the following dose reduction techniques: Automated exposure control, adjustment of the mA and/or kV according to patient size, and/or use of iterative reconstruction technique. FINDINGS: LOWER THORAX: Unremarkable. LIVER: Unremarkable. No gross lesion or ductal dilatation. GALLBLADDER AND BILE DUCTS: Unremarkable. PANCREAS: Unremarkable. No gross lesion or ductal dilatation. SPLEEN: Unremarkable. ADRENALS: Unremarkable. No mass. KIDNEYS AND URETERS: Mid left renal cortical cyst, exophytic, 1.4 cm. This measures 7 Hounsfield units in attenuation. No other renal mass. No calculus or hydronephrosis. VASCULATURE: Unremarkable. No aortic aneurysm. There is atherosclerotic calcification of the abdominal aorta. BOWEL: The patient is status post low anterior resection. A left-sided colostomy is noted. Peristomal hernia is noted containing nonobstructed small bowel. No other abnormal bowel loops are appreciated elsewhere. APPENDIX: Unremarkable. Normal appendix. PERITONEUM: Unremarkable. No free fluid. No free air. LYMPH NODES: Unremarkable. No enlarged lymph nodes. BLADDER: Poorly distended. Grossly unremarkable. REPRODUCTIVE: Normal prostate BONES: Lumbar levoscoliosis. No acute fracture. OTHER FINDINGS: None. IMPRESSION: Status post low anterior resection. Left lower quadrant colostomy. Parastomal hernia. No bowel obstruction. Additional minor findings as above. The preliminary findings for this examination were reported by [facility] at 10:24 p.m. on 11/05/2018. There is concurrence of this report with the preliminary findings.
--- NOTE | 2018-11-06 11:49 | CP.PCM.CON ---
<Pavan Peña - Last Filed: 11/06/18 18:22> History of Present Illness - History of Present Illness History of Present Illness: PGY6 GI Fellow Consult Note Patient is a 63yo male with PMHx significant for rectal adenocarcinoma s/p chemoXRT and partial colectomy with colostomy, CKD, DM, hyperlipidemia who presented to the ED with complaint of abdominal pain. States he has been have intermittent cramping/spasm-type discomfort in the B/L upper abdomen and LLQ. Initially, symptoms would occur 1-2 times weekly but over the last week, symptoms have become more frequent and thus he came to the ED for evaluation. He denies any significant change in bowel habits and specifically denied any he matochezia. The patient was recently evaluated for restaging by his oncologist and underwent PET/CT which revealed intense uptake in the colon at the hepatic flexure which was not present in last scan in 2017. He denies weight loss, nausea, vomiting, fever, chills. 12 system ROS performed and negative except where stated PMHx: See HPI PSHx: Carrie's operation with colostomy, CABG FHx: Father - prostate cancer Social: Denies tobacco, EtOH or illicit drug use Endo: Last colonoscopy of record was 06/2015 at time of diagnosis Past Patient History - Past Social History Smoking Status: Former Smoker - CARDIAC Hx Cardiac Disorders: Yes (quintuple bypass) Hx Hypertension: Yes Hx 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) Hx Pacemaker: No - PULMONARY Hx Respiratory Disorders: No - NEUROLOGICAL Hx Neurological Disorder: No - HEENT Hx HEENT Problems: Yes (glasses) - RENAL Hx Chronic Kidney Disease: Yes (due to chemo) - ENDOCRINE/METABOLIC Hx Endocrine Disorders: Yes Hx Diabetes Mellitus Type 2: Yes - HEMATOLOGICAL/ONCOLOGICAL Hx Blood Disorders: Yes Hx Anemia: Yes (blood transfusion 06/04/15) Hx Cancer: Yes (colorectal ca dx 03/22/2015 st 2) Hx Chemotherapy: Yes - INTEGUMENTARY Hx Dermatological Problems: No Other/Comment: abd left abd colostomy - MUSCULOSKELETAL/RHEUMATOLOGICAL Hx Falls: No - GASTROINTESTINAL Hx Gastrointestinal Disorders: Yes Hx Colostomy: Yes (left colostomy) Other/Comment: colorectal ca - GENITOURINARY/GYNECOLOGICAL Hx Genitourinary Disorders: No - PSYCHIATRIC Hx Substance Use: No - SURGICAL HISTORY Hx Surgeries: Yes (left colostomy) Hx Cardiac Catheterization: Yes Hx Coronary Stent: Yes Hx Open Heart Surgery: Yes (quintuple bypass) Hx Valve Replacement: Yes (mvr) - ANESTHESIA Hx Anesthesia Reactions: No Hx Malignant Hyperthermia: No Meds Allergies/Adverse Reactions: Allergies Allergy/AdvReac Type Severity Reaction Status Date / Time No Known Allergies Allergy Verified 11/05/18 19:00 - Medications Medications: Current Medications Dextrose (Dextrose 50% Inj) 0 ml IV STAT PRN; Protocol PRN Reason: Hypoglycemia Protocol Sodium Chloride (Sodium Chloride 0.9%) 1,000 mls @ 100 mls/hr IV .Q10H [facility] Last Admin: 11/05/18 20:07 Dose: 100 mls/hr Dextrose (Dextrose 5% In Water 1000 Ml) 1,000 mls @ 0 mls/hr IV .Q0M PRN; Protocol PRN Reason: Hypoglycemia Protocol Insulin Human Regular (Humulin R Med) 0 units SC ACHS [facility]; Protocol Last Admin: 11/06/18 08:02 Dose: Not Given Metoprolol Tartrate (Lopressor) 25 mg PO DAILY [facility] Last Admin: 11/06/18 09:42 Dose: Not Given Ondansetron HCl (Zofran Inj) 4 mg IVP Q4H PRN PRN Reason: Nausea/Vomiting Tamsulosin HCl (Flomax) 0.8 mg PO DAILY [facility] Last Admin: 11/06/18 09:41 Dose: Not Given Physical Exam - Constitutional Appears: Non-toxic, No Acute Distress - Eye Exam Eye Exam: EOMI, PERRL - ENT Exam ENT Exam: Mucous Membranes Moist - Respiratory Exam Respiratory Exam: Clear to Auscultation Bilateral. absent: Rales, Rhonchi, Wheezes - Cardiovascular Exam Cardiovascular Exam: RRR, +S1, +S2 - GI/Abdominal Exam GI & Abdominal Exam: Normal Bowel Sounds, Soft. absent: Distended, Firm, Guarding, Hernia, Rigid, Tenderness Additional comments: ostomy in LLQ - Extremities Exam Extremities exam: Positive for: normal inspection. Negative for: pedal edema - Neurological Exam Neurological exam: Alert, Oriented x3 - Psychiatric Exam Psychiatric exam: Normal Affect, Normal Mood - Skin Skin Exam: Dry, Warm Results - Vital Signs Recent Vital Signs: Last Vital Signs Temp 97.9 F 11/06/18 07:51 Pulse 68 11/06/18 07:51 Resp 20 11/06/18 07:51 BP 134/74 11/06/18 07:51 Pulse Ox 98 11/06/18 07:51 - Labs Result Diagrams: 11/05/18 19:40 11/05/18 19:40 Labs: Laboratory Results - last 24 hr 11/05/18 11/05/18 11/06/18 19:40 19:40 07:47 WBC 10.2 RBC 4.97 Hgb 14.8 D Hct 42.5 MCV 85.5 D MCH 29.8 MCHC 34.8 RDW 13.3 Plt Count 222 MPV 9.3 Sodium 138 Potassium 4.1 Chloride 100 Carbon Dioxide 25 Anion Gap 17 BUN 59 H Creatinine 3.6 H Est GFR ( Amer) 21 Est GFR (Non-Af Amer) 17 POC Glucose (mg/dL) 98 Random Glucose 100 Calcium 9.7 Total Bilirubin 1.0 AST 27 ALT 23 Alkaline Phosphatase 105 Total Protein 8.1 Albumin 4.6 Globulin 3.5 Albumin/Globulin Ratio 1.3 Lipase 634 H Assessment & Plan - Assessment and Plan (Free Text) Assessment: Patient is a 63yo male with PMHx significant for rectal adenocarcinoma s/p chemoXRT and partial colectomy with colostomy, CKD, DM, hyperlipidemia who presented to the ED with complaint of abdominal pain -Abdominal pain -Abnormal PET/CT in patient with h/o rectal adenocarcinoma -CAD -CKD -DM Plan: -Given persistent, worsening abdominal pain along with recently abnormal PET/CT, recommend colonoscopy -Patient has only had liquid diet last two days; will start Bowel prep with Dulcolax and NuLytely at 9am today -Plan for colonoscopy this afternoon -NPO except medications and prep -Plan per findings - Date & Time Date: 11/06/18 Time: 08:10 <Jesus Manuel French V - Last Filed: 11/06/18 21:32> Meds - Medications Medications: Current Medications Dextrose (Dextrose 50% Inj) 0 ml IV STAT PRN; Protocol PRN Reason: Hypoglycemia Protocol Sodium Chloride (Sodium Chloride 0.9%) 1,000 mls @ 100 mls/hr IV .Q10H [facility] Last Admin: 11/06/18 12:34 Dose: 100 mls/hr Dextrose (Dextrose 5% In Water 1000 Ml) 1,000 mls @ 0 mls/hr IV .Q0M PRN; Protocol PRN Reason: Hypoglycemia Protocol Insulin Human Regular (Humulin R Med) 0 units SC ACHS [facility]; Protocol Last Admin: 11/06/18 16:37 Dose: Not Given Metoprolol Tartrate (Lopressor) 25 mg PO DAILY [facility] Last Admin: 11/06/18 09:42 Dose: Not Given Ondansetron HCl (Zofran Inj) 4 mg IVP Q4H PRN PRN Reason: Nausea/Vomiting Last Admin: 11/06/18 18:32 Dose: 4 mg Tamsulosin HCl (Flomax) 0.8 mg PO DAILY [facility] Last Admin: 11/06/18 09:41 Dose: Not Given Results - Vital Signs Recent Vital Signs: Last Vital Signs Temp 97.5 F L 11/06/18 17:50 Pulse 71 11/06/18 17:50 Resp 16 11/06/18 17:50 BP 154/80 H 11/06/18 17:50 Pulse Ox 99 11/06/18 17:50 - Labs Result Diagrams: 11/05/18 19:40 11/05/18 19:40 Labs: Laboratory Results - last 24 hr 11/06/18 11/06/18 11/06/18 07:47 11:45 15:05 POC Glucose (mg/dL) 98 72 Serum Osmolality 291 11/06/18 11/06/18 19:30 21:19 POC Glucose (mg/dL) 104 138 H Serum Osmolality Attending/Attestation - Attestation I have personally seen and examined this patient.: Yes I have fully participated in the care of the patient.: Yes I have reviewed all pertinent clinical information: Yes Notes (Text): This patient was seen and evaluated earlier today along with the GI fellow.. This is an addendum to the GI consultation report dictated by the fellow. This 58-year-old patient had a abdominal perineal resection for rectal carcinoma status post radiation chemo. Recent PET scan shows increased activity in the right colon. GI consult was requested to evaluate this. Discussed with the patient patient is being prepared for colonoscopy to further evaluate this. Complains of discomfort at the para colostomy area. 11/06/18 21:30
[2018-11-06] MEDS: Sodium Chloride 0.9% 1,000 ML IV SCH (12:34)
--- NOTE | 2018-11-06 14:27 | CP.PCM.HP ---
History of Present Illness - History of Present Illness History of Present Illness: Medicine H/P (Dr. Ann Krishnan, PGY - 2 Chief Complaint: Abdominal pain 63 M with pertinent medical history of colorectal cancer s/p L-sided colostomy bag, CHF, anemia [place] [facility] [place] for evaluation of RLQ pain with a "bulge." Patient states that he has been having this abdominal pain for about two days; yesterday, he started seeing 'red' in his colostomy bag. He also admits to a bout of emesis, but no further GI symptoms persist right now. Patient denies any fevers, chills, or sick contacts at home. He was admitted to surgery last year for hernia repair. Review of Systems: 12 point ROS obtained and negative except as per HPI PMH: Colorectal cancer, CHF, anemia, hypertension, diabetes mellitus, CAD, hyperlipidemia PSH: Colostomy, Hernia repair of incarcerated hernia with mesh and revision of colostomy (10/2017), CABG Social Hx: Former smoker (20 years), social alcohol use, denies recreational drugs Family Hx: Noncontributory at this time Allergies: NKDA Medications: Reviewed, as per MAR Present on Admission - Present on Admission Any Indicators Present on Admission: No Past Patient History - Past Social History Smoking Status: Former Smoker - CARDIAC Hx Cardiac Disorders: Yes (quintuple bypass) Hx Hypertension: Yes Hx 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) Hx Pacemaker: No - PULMONARY Hx Respiratory Disorders: No - NEUROLOGICAL Hx Neurological Disorder: No - HEENT Hx HEENT Problems: Yes (glasses) - RENAL Hx Chronic Kidney Disease: Yes (due to chemo) - ENDOCRINE/METABOLIC Hx Endocrine Disorders: Yes Hx Diabetes Mellitus Type 2: Yes - HEMATOLOGICAL/ONCOLOGICAL Hx Blood Disorders: Yes Hx Anemia: Yes (blood transfusion 06/04/15) Hx Cancer: Yes (colorectal ca dx 03/22/2015 [facility] 2) Hx Chemotherapy: Yes - INTEGUMENTARY Hx Dermatological Problems: No Other/Comment: abd left abd colostomy - MUSCULOSKELETAL/RHEUMATOLOGICAL Hx Falls: No - GASTROINTESTINAL Hx Gastrointestinal Disorders: Yes Hx Colostomy: Yes (left colostomy) Other/Comment: colorectal ca - GENITOURINARY/GYNECOLOGICAL Hx Genitourinary Disorders: No - PSYCHIATRIC Hx Substance Use: No - SURGICAL HISTORY Hx Surgeries: Yes (left colostomy) Hx Cardiac Catheterization: Yes Hx Coronary Stent: Yes Hx Open Heart Surgery: Yes (quintuple bypass) Hx Valve Replacement: Yes (mvr) - ANESTHESIA Hx Anesthesia Reactions: No Hx Malignant Hyperthermia: No Meds Allergies/Adverse Reactions: Allergies Allergy/AdvReac Type Severity Reaction Status Date / Time No Known Allergies Allergy Verified 11/05/18 19:00 Physical Exam - Constitutional Appears: Well - Head Exam Head Exam: ATRAUMATIC, NORMAL INSPECTION, NORMOCEPHALIC - Eye Exam Eye Exam: EOMI, Normal appearance, PERRL Pupil Exam: NORMAL ACCOMODATION, PERRL - ENT Exam ENT Exam: Mucous Membranes Moist, Normal Exam - Neck Exam Neck exam: Positive for: Normal Inspection - Respiratory Exam Respiratory Exam: Clear to Auscultation Bilateral, NORMAL BREATHING PATTERN - Cardiovascular Exam Cardiovascular Exam: REGULAR RHYTHM - GI/Abdominal Exam GI & Abdominal Exam: Normal Bowel Sounds, Soft. absent: Tenderness - Extremities Exam Extremities exam: Positive for: normal inspection - Back Exam Back exam: NORMAL INSPECTION - Neurological Exam Neurological exam: Alert, CN II-XII Intact, Normal Gait, Oriented x3, Reflexes Normal - Psychiatric Exam Psychiatric exam: Normal Affect, Normal Mood - Skin Skin Exam: Dry, Intact, Normal Color, Warm Results - Vital Signs Recent Vital Signs: Last Vital Signs Temp 97.9 F 11/06/18 07:51 Pulse 68 11/06/18 07:51 Resp 20 11/06/18 07:51 BP 134/74 11/06/18 07:51 Pulse Ox 98 11/06/18 07:51 - Labs Result Diagrams: 11/05/18 19:40 11/05/18 19:40 Labs: Laboratory Results - last 24 hr 11/05/18 11/05/18 11/06/18 19:40 19:40 07:47 WBC 10.2 RBC 4.97 Hgb 14.8 D Hct 42.5 MCV 85.5 D MCH 29.8 MCHC 34.8 RDW 13.3 Plt Count 222 MPV 9.3 Sodium 138 Potassium 4.1 Chloride 100 Carbon Dioxide 25 Anion Gap 17 BUN 59 H Creatinine 3.6 H Est GFR ( Amer) 21 Est GFR (Non-Af Amer) 17 POC Glucose (mg/dL) 98 Random Glucose 100 Calcium 9.7 Total Bilirubin 1.0 AST 27 ALT 23 Alkaline Phosphatase 105 Total Protein 8.1 Albumin 4.6 Globulin 3.5 Albumin/Globulin Ratio 1.3 Lipase 634 H 11/06/18 11:45 WBC RBC Hgb Hct MCV MCH MCHC RDW Plt Count MPV Sodium Potassium Chloride Carbon Dioxide Anion Gap BUN Creatinine Est GFR ( Amer) Est GFR (Non-Af Amer) POC Glucose (mg/dL) 72 Random Glucose Calcium Total Bilirubin AST ALT Alkaline Phosphatase Total Protein Albumin Globulin Albumin/Globulin Ratio Lipase Assessment & Plan - Assessment and Plan (Free Text) Assessment: 63 M with pertinent medical history of past hernia repair, L sided colostomy bag, presents with R sided abdominal pain. CT A/P does show hernia with fat; no indication of any colitis or appendicitis. Patient is without any SIRS criteria or any other indications of an acute abdomen. At this time, we have obtained GI consultation from Dr. French, who is planning on scoping the patient today; CBC is stable and patient does not seem to have a brisk bleed. We will have surgery evaluate the patient's colostomy bag and hernia, to see if patient needs surgical intervention. For his Hx of HLD, we will continue lipitor; Hx HTN, will continue with Lopressor; Hx of BPH, continue with Flomax; and for Hx of CAD will continue with ASA daily. Patient also has an BLAYNE; baseline creatinine of 2.0 with CR of 3.6 today. Will work patient up and will avoid nephrotoxic agents at this time. Note that patient has Hx of DM, and patient takes insulin. Given that patient has an BLAYNE and has a component of CKD, we need to be careful with our dosage of this medication. For now, we will keep patient on medium sliding scale.
--- NOTE | 2018-11-06 16:16 | CP.PCM.APN ---
Subjective - Date & Time of Evaluation Date of Evaluation: 11/06/18 Time of Evaluation: 11:00 - Subjective Subjective: Pt seen and examined, still with complaints of abdominal discomfort, no further vomitting,awaits egd. Objective - Vital Signs/Intake and Output Vital Signs (last 24 hours): Temp Pulse Resp BP Pulse Ox 97.5 F L 82 16 178/92 H 99 11/06/18 15:40 11/06/18 15:40 11/06/18 15:40 11/06/18 15:40 11/06/18 15:40 Intake and Output: 11/06/18 11/06/18 06:59 18:59 Intake Total 120 Output Total 600 Balance -480 - Medications Medications: Current Medications Dextrose (Dextrose 50% Inj) 0 ml IV STAT PRN; Protocol PRN Reason: Hypoglycemia Protocol Sodium Chloride (Sodium Chloride 0.9%) 1,000 mls @ 100 mls/hr IV .Q10H [facility] Last Admin: 11/06/18 12:34 Dose: 100 mls/hr Dextrose (Dextrose 5% In Water 1000 Ml) 1,000 mls @ 0 mls/hr IV .Q0M PRN; Protocol PRN Reason: Hypoglycemia Protocol Insulin Human Regular (Humulin R Med) 0 units SC ACHS [facility]ANI[facility]; Protocol Last Admin: 11/06/18 12:15 Dose: Not Given Metoprolol Tartrate (Lopressor) 25 mg PO DAILY [facility] Last Admin: 11/06/18 09:42 Dose: Not Given Ondansetron HCl (Zofran Inj) 4 mg IVP Q4H PRN PRN Reason: Nausea/Vomiting Tamsulosin HCl (Flomax) 0.8 mg PO DAILY [facility] Last Admin: 11/06/18 09:41 Dose: Not Given - Labs Labs: 11/05/18 19:40 11/05/18 19:40 - Constitutional Appears: Well, Non-toxic, No Acute Distress - Head Exam Head Exam: NORMOCEPHALIC - Eye Exam Eye Exam: Normal appearance - ENT Exam ENT Exam: Mucous Membranes Moist, Normal Exam - Neck Exam Neck Exam: Full ROM - Respiratory Exam Respiratory Exam: Clear to Ausculation Bilateral - Cardiovascular Exam Cardiovascular Exam: REGULAR RHYTHM, +S1, +S2 - GI/Abdominal Exam GI & Abdominal Exam: Soft Additional comments: colostomy bag drainging stool - Rectal Exam Rectal Exam: Deferred - Exam Exam: absent: Circumcision, NORMAL INSPECTION, Scrotal Swelling, Testicular Tenderness, Uretheral Discharge, Testicular Vertical Lie, Bladder Distension External exam: absent: Ecchymosis, Erythema, Lacerations, Lesions, NORMAL EXTERNAL EXAM, Swelling Speculum exam: absent: Cervical Discharge, Erythema, Foreign Body, Laceration, NORMAL SPECULUM EXAM, Tissue, Vaginal Bleeding, Vaginal Discharge Bimanual exam: absent: Adenexal Mass, Adnexal, Cervical Motion Tendernes, NORMAL BIMANUAL EXAM, Uterine Enlargement, Uterine Tenderness - Extremities Exam Extremities Exam: Full ROM, Normal Inspection - Back Exam Back Exam: NORMAL INSPECTION - Neurological Exam Neurological Exam: Alert, Awake, Oriented x3 - Psychiatric Exam Psychiatric exam: Normal Affect, Normal Mood - Skin Skin Exam: Dry, Intact, Normal Color, Warm Assessment and Plan - Assessment and Plan (Free Text) Assessment: ITS Impressions Abdomen/Pelvis CT 11/05/18 19:56 IMPRESSION: Status post low anterior resection. Left lower quadrant colostomy. Parastomal hernia. No bowel obstruction. Additional minor findings as above. The preliminary findings for this examination were reported by [facility] at 10:24 p.m. on 11/05/2018. There is concurrence of this report with the preliminary findings. Assessment: 63yo male with PMHx significant for rectal adenocarcinoma s/p chemoXRT and partial colectomy with colostomy, CKD, DM, hyperlipidemia who presented to the ED with complaint of abdominal pain,and nausea, admitted for further eval and treatment with GI consulted. Plan: 1. Abdominal pain Improved, currently awaiting colonoscopy 2. Acute renal insufficiency cont. IVF, monitor , trend Bun/Creatinine, Renal consult pending. 3. Vomiting, nausea improved. continue anti nausea Rx, further recs per GI.
[2018-11-06] MEDS ORDERED: Etomidate 20 mg/10ml Inj IV ONE (16:21)
[2018-11-06] MEDS ORDERED: Propofol 10 mg/ml Inj (20 ML) ONE (16:21)
[2018-11-06] MEDS ORDERED: Sodium Chloride 0.9% 1,000 ML IV SCH (17:30)
--- NOTE | 2018-11-06 21:40 | CON ---
DATE OF CONSULTATION: 11/06/2018 REASON FOR CONSULTATION: Acute kidney injury, superimposed on chronic kidney disease stage III/IV?. HISTORY OF PRESENTING ILLNESS: A 63-year-old male, previously unknown to me. The patient was advised to go to the emergency room yesterday because of complaints of severe right lower quadrant pain, some blood in the colostomy bag, also epigastric burning pain. The patient has a history of colorectal cancer, he has history of anterior resection, left-sided colostomy bag, CHF, hypertension, NIDDM, chronic kidney disease stage III. According to the computer, his creatinine was 2 one year ago, his creatinine yesterday was 3.6. Consultation is requested for acute kidney injury. PAST MEDICAL AND SURGICAL HISTORY: NIDDM; hypertension; chronic kidney disease stage III; rectal adeno CA, status post chemo therapy, radiation, partial colectomy, colostomy, hernia repair with mesh; CAD; CABG. FAMILY HISTORY: Prostate cancer. SOCIAL HISTORY: No smoking, no alcohol use, no IV drug abuse. ALLERGIES: NO KNOWN DRUG ALLERGIES. MEDICATIONS AT HOME: Flomax 0.8, Lopressor 25, Lipitor 20, insulin, and aspirin. REVIEW OF SYSTEMS: Right lower quadrant pain, also pain right across the abdomen, in the middle of the abdomen, also complains of epigastric pain. No fever, no chills, no nausea or vomiting. All other symptoms are reviewed and are unremarkable. PHYSICAL EXAMINATION: GENERAL: Elderly male, lying in bed. VITAL SIGNS: Blood pressure 178/92, heart rate 82, respiratory rate 16, temperature 97.5. HEENT: Normocephalic, atraumatic, positive pallor. NECK: Supple, no JVD. LUNGS: Bilateral equal entry, bilateral equal expansion. CARDIAC: S1 and S2, regular rate and rhythm, no murmur, no rub. ABDOMEN: Soft, positive midline scar in the thoracic region, positive colostomy in the left lower quadrant, eschar in the right lower quadrant. Bowel sounds present. EXTREMITIES: No lower extremity edema. INTAKE AND OUTPUT: 120/600. LABORATORY DATA: WBC 10.2, hemoglobin 14.8, hematocrit 42.5, platelets 222. Sodium 138, potassium 4.1, chloride 100, CO2 of 25, BUN 59, creatinine 3.6, glucose 100, calcium 9.7, AST 27, ALT 23, albumin 4.6, lipase 634. CT of the abdomen and pelvis showed evidence of a low anterior resection, left lower quadrant colostomy, parastomal hernia, no bowel obstruction. CURRENT MEDICATIONS: Flomax 0.8, insulin, Lopressor 25, normal saline at 100, Zofran. ASSESSMENT: 1. Acute kidney injury superimposed on chronic kidney disease stage III/IV. Data is not available for the time period between 11/2017 to 11/2018, right now we will contact Oncology to get data from that interval. 2. Suspect severe prerenal azotemia. 3. Uncontrolled hypertension, likely secondary to pain. 4. Khd-syfywbs-tprdqigct diabetes mellitus. 5. Coronary artery disease, history of coronary artery bypass graft. 6. History of colorectal cancer, anterior resection, colostomy. PLAN: 1. Get records from PMD's office. 2. Continue IV fluids. 3. Monitor electrolytes. 4. Avoid nephrotoxins. 5. Continue Flomax. 6. Pain management. 7. Agree with plans for endoscopy. Neelam Quick MD
[2018-11-07] MEDS ORDERED: Promethazine DM 6.25 mg-15 mg/5 ml Syrup PO STA (01:18)
--- NOTE | 2018-11-07 02:17 | CP.PCM.PN ---
Subjective - Date & Time of Evaluation Date of Evaluation: 11/07/18 Time of Evaluation: 02:17 - Subjective Subjective: It was requested by a resident physician to co-sign order for Promethazine 50 mg IM x 1. Reglan 10 mg IVP stat.x 2. Promethazone DM 5 ml PO stat. Patient was seen at bedside. Complains of vomiting, nausea. Has no other acute symptoms. Pertinent medical record was reviewed. This 63 year old male was admitted with right lower quadrant pain with bulge. Has PMH of -colorectal cancer ,S/P left sided colostomy, anemia, CHF,HLD,HTN,DM, CAD, S/P CABG. Objective - Vital Signs/Intake and Output Vital Signs (last 24 hours): Temp Pulse Resp BP Pulse Ox 97.5 F L 71 16 154/80 H 99 11/06/18 17:50 11/06/18 17:50 11/06/18 17:50 11/06/18 17:50 11/06/18 17:50 - Medications Medications: Current Medications Dextrose (Dextrose 50% Inj) 0 ml IV STAT PRN; Protocol PRN Reason: Hypoglycemia Protocol Sodium Chloride (Sodium Chloride 0.9%) 1,000 mls @ 100 mls/hr IV .Q10H [facility] Last Admin: 11/06/18 12:34 Dose: 100 mls/hr Dextrose (Dextrose 5% In Water 1000 Ml) 1,000 mls @ 0 mls/hr IV .Q0M PRN; Protocol PRN Reason: Hypoglycemia Protocol Insulin Human Regular (Humulin R Med) 0 units SC ACHS DANIEL; Protocol Last Admin: 11/06/18 22:32 Dose: Not Given Metoprolol Tartrate (Lopressor) 25 mg PO DAILY [facility] Last Admin: 11/06/18 09:42 Dose: Not Given Ondansetron HCl (Zofran Inj) 4 mg IVP Q4H PRN PRN Reason: Nausea/Vomiting Last Admin: 11/06/18 23:18 Dose: 4 mg Tamsulosin HCl (Flomax) 0.8 mg PO DAILY [facility] Last Admin: 11/06/18 09:41 Dose: Not Given - Labs Labs: 11/05/18 19:40 11/05/18 19:40 - Constitutional Appears: Well, No Acute Distress - Head Exam Head Exam: ATRAUMATIC, NORMAL INSPECTION, NORMOCEPHALIC - Eye Exam Eye Exam: Normal appearance - ENT Exam ENT Exam: Normal External Ear Exam - Neck Exam Neck Exam: Normal Inspection - Respiratory Exam Respiratory Exam: NORMAL BREATHING PATTERN - Cardiovascular Exam Cardiovascular Exam: absent: JVD - GI/Abdominal Exam GI & Abdominal Exam: absent: Distended - Rectal Exam Rectal Exam: Deferred - Exam Additional comments: Deferred. - Extremities Exam Extremities Exam: Normal Inspection - Back Exam Back Exam: NORMAL INSPECTION - Neurological Exam Neurological Exam: Alert, Awake - Psychiatric Exam Psychiatric exam: Normal Affect, Normal Mood - Skin Skin Exam: Normal Color Assessment and Plan - Assessment and Plan (Free Text) Assessment: Nausea/Vomiting. Abdominal pain. S/P colorectal cancer. S/P colostomy. S/P CABG HTN DM CAD HLD CHF Anemia Former smoker. Social alcohol use. Plan: Rx, Promethazine 50 mg IM x 1. Reglan 10 mg IVP stat.x 2. Promethazone DM 5 ml PO stat. Continue present management.
[2018-11-07] MEDS: Sodium Chloride 0.9% 1,000 ML IV SCH ×3 (06:11→23:13)
[2018-11-07] MEDS: Insulin Reg-MEDIUM-Coverage SC SCH ×4 (08:20→22:06)
--- NOTE | 2018-11-07 08:21 | CP.PCM.PN ---
Subjective - Date & Time of Evaluation Date of Evaluation: 11/07/18 Time of Evaluation: 08:13 - Subjective Subjective: SURGERY NOTE FOR DR. MENCHACA 63M seen and examined at bedside. Patient states abdominal pain has resolved, states nausea as resolved. He did had vomiting overnight which is resolved now. Patient underwent colonoscopy yesterday evening and found to have a polyp which was removed endoscopically. Started back on liquid diet. Objective - Vital Signs/Intake and Output Vital Signs (last 24 hours): Temp Pulse Resp BP Pulse Ox 97.5 F L 71 16 154/80 H 99 11/06/18 17:50 11/06/18 17:50 11/06/18 17:50 11/06/18 17:50 11/06/18 17:50 - Medications Medications: Current Medications Dextrose (Dextrose 50% Inj) 0 ml IV STAT PRN; Protocol PRN Reason: Hypoglycemia Protocol Sodium Chloride (Sodium Chloride 0.9%) 1,000 mls @ 100 mls/hr IV .Q10H [facility] Last Admin: 11/07/18 06:11 Dose: 100 mls/hr Dextrose (Dextrose 5% In Water 1000 Ml) 1,000 mls @ 0 mls/hr IV .Q0M PRN; Protocol PRN Reason: Hypoglycemia Protocol Insulin Human Regular (Humulin R Med) 0 units SC ACHS [facility]; Protocol Last Admin: 11/06/18 22:32 Dose: Not Given Metoprolol Tartrate (Lopressor) 25 mg PO DAILY [facility] Last Admin: 11/06/18 09:42 Dose: Not Given Ondansetron HCl (Zofran Inj) 4 mg IVP Q4H PRN PRN Reason: Nausea/Vomiting Last Admin: 11/06/18 23:18 Dose: 4 mg Tamsulosin HCl (Flomax) 0.8 mg PO DAILY [facility] Last Admin: 11/06/18 09:41 Dose: Not Given - Labs Labs: 11/05/18 19:40 11/05/18 19:40 - Constitutional Appears: Non-toxic, No Acute Distress - Respiratory Exam Respiratory Exam: Clear to Ausculation Bilateral, NORMAL BREATHING PATTERN - Cardiovascular Exam Cardiovascular Exam: REGULAR RHYTHM, +S1, +S2 - GI/Abdominal Exam GI & Abdominal Exam: Soft. absent: Distended, Firm, Guarding, Rigid, Tenderness, Rebound Additional comments: ostomy patent - Neurological Exam Neurological Exam: Alert, Awake Assessment and Plan - Assessment and Plan (Free Text) Assessment: 63-year-old M with PMH Colorectal cancer s/p Colostomy and s/p Hernia repair of incarcerated incisional parastomal hernia with mesh and revision of colostomy (10/2017), CHF, anemia, hypertension, diabetes mellitus, CAD s/p CABG, hyperlipidemia who [place] [facility] [place] left [place] quadrant pain 2/2 reducible parastomal hernia Plan: - s/p colonoscopy - found polyp which was removed - f/u pathology - advance diet as tolerated - Monitor further ostomy function Further recs discuss with Tomi Ceja, PGY3
[2018-11-07 08:50] VITALS: O2SAT 98
[2018-11-07 09:32] LABS: CALCIUM 7.9 mg/dL (8.4-10.5)
--- NOTE | 2018-11-07 13:35 | CP.PCM.PN ---
<Pavan Peña - Last Filed: 11/07/18 13:36> Subjective - Date & Time of Evaluation Date of Evaluation: 11/07/18 Time of Evaluation: 08:10 - Subjective Subjective: PGY6 GI Fellow Progress Note Patient seen and examined bedside this morning. The patient states that he is feeling well and denies any abdominal pain today. Ambulating without issue. Tolerating diet without issue. No events overnight. 12 system ROS performed and negative except where stated Objective - Vital Signs/Intake and Output Vital Signs (last 24 hours): Temp Pulse Resp BP Pulse Ox 97.4 F L 90 20 191/84 H 98 11/07/18 08:49 11/07/18 08:49 11/07/18 08:49 11/07/18 08:49 11/07/18 08:49 - Medications Medications: Current Medications Dextrose (Dextrose 50% Inj) 0 ml IV STAT PRN; Protocol PRN Reason: Hypoglycemia Protocol Sodium Chloride (Sodium Chloride 0.9%) 1,000 mls @ 100 mls/hr IV .Q10H [facility] Last Admin: 11/07/18 06:11 Dose: 100 mls/hr Dextrose (Dextrose 5% In Water 1000 Ml) 1,000 mls @ 0 mls/hr IV .Q0M PRN; Pro tocol PRN Reason: Hypoglycemia Protocol Insulin Human Regular (Humulin R Med) 0 units SC ACHS [facility]; Protocol Last Admin: 11/07/18 11:19 Dose: Not Given Metoprolol Tartrate (Lopressor) 25 mg PO DAILY [facility] Last Admin: 11/07/18 09:16 Dose: 25 mg Ondansetron HCl (Zofran Inj) 4 mg IVP Q4H PRN PRN Reason: Nausea/Vomiting Last Admin: 11/06/18 23:18 Dose: 4 mg Tamsulosin HCl (Flomax) 0.8 mg PO DAILY [facility] Last Admin: 11/07/18 09:16 Dose: 0.8 mg - Labs Labs: 11/05/18 19:40 11/07/18 09:00 - Constitutional Appears: Non-toxic, No Acute Distress - Eye Exam Eye Exam: EOMI, PERRL - ENT Exam ENT Exam: Mucous Membranes Moist - Respiratory Exam Respiratory Exam: Clear to Ausculation Bilateral. absent: Rales, Rhonchi, Wheezes - Cardiovascular Exam Cardiovascular Exam: RRR, +S1, +S2 - GI/Abdominal Exam GI & Abdominal Exam: Soft, Normal Bowel Sounds. absent: Distended, Firm, Guarding, Rigid, Tenderness, Mass, Organomegaly Additional comments: left sided ostomy noted - Extremities Exam Extremities Exam: Normal Inspection. absent: Pedal Edema - Neurological Exam Neurological Exam: Alert, Awake, Oriented x3 - Psychiatric Exam Psychiatric exam: Normal Affect, Normal Mood - Skin Skin Exam: Dry, Warm Assessment and Plan - Assessment and Plan (Free Text) Assessment: Patient is a 63yo male with PMHx significant for rectal adenocarcinoma s/p chemoXRT and partial colectomy with colostomy, CKD, DM, hyperlipidemia who presented to the ED with complaint of abdominal pain -Abdominal pain -Colon polyps -Abnormal PET/CT in patient with h/o rectal adenocarcinoma -CAD -CKD -DM Plan: -No lesions or abnormalities detected at the hepatic flexure or right colon on colonoscopy yesterday -Large polypoid lesion resected in piecemeal fashion yesterday was located 27cm from ostomy -Given piecemeal nature of resection, request repeat colonoscopy in 3 months -Consider colonic bx to r/o underlying IBD as prior bx did note cryptitis -Diet as tolerated -OK for D/C from GI standpoint <Gillian,Kovil V - Last Filed: 11/08/18 21:17> Objective - Vital Signs/Intake and Output Vital Signs (last 24 hours): Temp Pulse Resp BP Pulse Ox 97.9 F 84 20 152/71 H 98 11/07/18 16:39 11/07/18 16:39 11/07/18 16:39 11/07/18 16:39 11/07/18 16:39 Intake and Output: 11/07/18 11/08/18 18:59 06:59 Intake Total 380 Balance 380 - Medications Medications: Current Medications Amlodipine Besylate (Norvasc) 5 mg PO DAILY [facility] Last Admin: 11/07/18 17:11 Dose: 5 mg Dextrose (Dextrose 50% Inj) 0 ml IV STAT PRN; Protocol PRN Reason: Hypoglycemia Protocol Sodium Chloride (Sodium Chloride 0.9%) 1,000 mls @ 100 mls/hr IV .Q10H [facility] Last Admin: 11/07/18 23:13 Dose: Not Given Dextrose (Dextrose 5% In Water 1000 Ml) 1,000 mls @ 0 mls/hr IV .Q0M PRN; Protocol PRN Reason: Hypoglycemia Protocol Insulin Human Regular (Humulin R Med) 0 units SC ACHS [facility]; Protocol Last Admin: 11/07/18 22:06 Dose: Not Given Metoclopramide HCl (Reglan) 5 mg IVP ACHS [facility] Stop: 11/08/18 07:31 Last Admin: 11/07/18 22:07 Dose: 5 mg Metoprolol Tartrate (Lopressor) 25 mg PO DAILY [facility] Last Admin: 11/07/18 09:16 Dose: 25 mg Ondansetron HCl (Zofran Inj) 4 mg IVP Q4H PRN PRN Reason: Nausea/Vomiting Last Admin: 11/07/18 15:52 Dose: 4 mg Tamsulosin HCl (Flomax) 0.8 mg PO DAILY [facility] Last Admin: 11/07/18 09:16 Dose: 0.8 mg - Labs Labs: 11/05/18 19:40 11/07/18 09:00 Attending/Attestation - Attestation I have personally seen and examined this patient.: Yes I have fully participated in the care of the patient.: Yes I have reviewed all pertinent clinical information, including history, physical exam and plan: Yes Notes (Text): This patient was seen and evaluated earlier. This is an addendum to the GI progress report dictated by the fellow. Patient did have a large polyp removed. No significant abnormalities noticed in the right colon or hepatic flexure area even after careful examination. I did discuss with the Dr. Kevin Bruno earlier. Patient would then need a repeat colonoscopy in 3 months time in view of the piecemeal polypectomy. Patient has a history of cryptitis in the previous biopsies however at the present time the colon appears endoscopy to be unremarkable otherwise. The etiology for intense uptake of the PET scan on the hepatic flexure area is unclear it could be a transient inflammatory changes. Will further evaluate when the patient comes in for another colonoscopy in 3 to 4 months time to evaluate if the post polypectomy site 11/08/18 06:31 11/08/18 21:16
--- NOTE | 2018-11-07 14:30 | CP.PCM.PCO ---
Physician Communication Note - Physician Communication Note Physician Communication Note: renal consult pending, worsening renal function
[2018-11-07 16:40] VITALS: TEMP 97.9
--- NOTE | 2018-11-07 20:08 | PN ---
DATE: 11/07/2018 SUBJECTIVE: The patient is currently seen on 3R. He is entirely comfortable. IV fluids are infusing. No longer has any abdominal pain or discomfort. He states he feels back to baseline. His creatinine today is down to 3.2 from a high of 3.6. The patient states that several weeks ago in the Oncology office, his creatinine was in the 2.6 range. MEDICATIONS: Medication list reviewed. The patient is on IV fluid hydration, normal saline 100 mL an hour, Flomax, sliding scale insulin, Lopressor, Reglan, and Zofran. OBJECTIVE: INTAKE/OUTPUT: Intake is 120 and output is 638. VITAL SIGNS: Blood pressure 154 to 91, systolic and diastolics 80 to 84. Temperature 97.4, respiratory rate is 20 with a pulse of 90. HEENT: Normocephalic and atraumatic. Conjunctivae are pink. Sclerae are nonicteric. NECK: Supple. No neck vein distention. CHEST: Clear to auscultation and percussion. No rales, rhonchi, or wheezing. CARDIOVASCULAR: Shows a regular rate and rhythm without audible murmurs, rubs, or gallops. ABDOMEN: Soft. There is no tenderness. He has a left lower quadrant colostomy. EXTREMITIES: No lower extremity cyanosis, clubbing, or edema. LABORATORY DATA AND IMAGING: CT on admission showed no evidence of any obstructive uropathy. He did have a left renal cyst. Surgical changes were seen on the CT scan. No bowel obstruction. Labs, CBC; his hemoglobin was 14.8 with a blood cell count of 10.2 and a platelet count of 222,000. Chemistries today showed a BUN of 52 down from 59 with a creatinine of 3.2. Again, the patient states several weeks ago, he did have a creatinine of 2.6. Electrolytes are normal. Glucose is 176. Calcium is 7.9. No cultures available for comment, no urines were sent. ASSESSMENT: 1. Acute renal failure, superimposed on likely chronic kidney disease, stage 3/4. The patient states the baseline creatinine is in the upper 2 range. Perhaps elevated BUN and creatinine are prerenal secondary to abdominal pain and decreased oral intake. There does not appear to be any nausea, vomiting, or diarrhea. Would suggest continuation of IV fluid hydration for perhaps one more day and to confirm patient labs with his oncologist. 2. Uncontrolled hypertension. The patient's only blood pressure medication was beta jhonny therapy in the outpatient setting. I will start the patient on a calcium channel jhonny therapy to help lower his blood pressure. 3. Insulin-dependent diabetes mellitus. Continue sliding scale insulin. The patient had been on long-acting insulin at home. 4. History of arteriosclerotic heart disease, status post coronary artery bypass graft. Currently stable. 5. History of adenocarcinoma of the right quadrant, status post chemotherapy, radiation, partial colectomy and colostomy with hernia repair with mesh. This appears to be stable. PLAN: 1. Continue IV fluid hydration. 2. Obtain urinalysis showing sodium, urine creatinine and a urine Julian stain. 3. Trying to obtain documentation of the creatine from Dr. Rodríguez and Dr. Bruno's office. The patient remembers a creatinine in the 2.6 range. 4. Continue sliding scale insulin. 5. Adjustment of blood pressure medication. I will add a calcium channel jhonny in light of his elevation of blood pressure readings. Toño Rodriguez MD
[2018-11-07 22:28] LABS: URINE BILIRUBIN NEGATIVE (NEGATIVE); URINE BLOOD LARGE (NEGATIVE); URINE GLUCOSE (UA) 500 mg/dL (NEGATIVE); URINE LEUKOCYTE ESTERASE NEGATIVE Leu/uL (NEGATIVE); URINE PROTEIN >=300 mg/dL (<30 mg/dL); URINE UROBILINOGEN 0.2 E.U./dL (<1 E.U./dL)
[2018-11-07 22:35] LABS: URINE APPEARANCE CLEAR (CLEAR); URINE COLOR YELLOW (YELLOW)
[2018-11-07 22:36] LABS: URINE RBC TNTC /hpf (0-2)
[2018-11-08] MEDS: Insulin Reg-MEDIUM-Coverage SC SCH ×2 (07:27→13:09)
[2018-11-08 07:35] LABS: ALB/GLOB RATIO 1.2 (1.1-1.8); ALBUMIN 3.3 g/dL (3.0-4.8); CALCIUM 7.6 mg/dL (8.4-10.5)
--- NOTE | 2018-11-08 07:58 | CP.PCM.PN ---
Subjective - Date & Time of Evaluation Date of Evaluation: 11/07/18 Time of Evaluation: 08:00 - Subjective Subjective: Heme/Onc progress note - Ariella PGY - 2 Patient seen and examined at bedside. Patient had colonoscopy yesterday, tolerated well, but is currently having complaints of nausea. Denies any further complaints right now. Objective - Vital Signs/Intake and Output Vital Signs (last 24 hours): Temp Pulse Resp BP Pulse Ox 97.9 F 84 20 152/71 H 98 11/07/18 16:39 11/07/18 16:39 11/07/18 16:39 11/07/18 16:39 11/07/18 16:39 Intake and Output: 11/08/18 11/08/18 06:59 18:59 Intake Total 380 Balance 380 - Medications Medications: Current Medications Amlodipine Besylate (Norvasc) 5 mg PO DAILY [facility] Last Admin: 11/07/18 17:11 Dose: 5 mg Dextrose (Dextrose 50% Inj) 0 ml IV STAT PRN; Protocol PRN Reason: Hypoglycemia Protocol Sodium Chloride (Sodium Chloride 0.9%) 1,000 mls @ 100 mls/hr IV .Q10H [facility] Last Admin: 11/07/18 23:13 Dose: Not Given Dextrose (Dextrose 5% In Water 1000 Ml) 1,000 mls @ 0 mls/hr IV .Q0M PRN; Protocol PRN Reason: Hypoglycemia Protocol Insulin Human Regular (Humulin R Med) 0 units SC ACHS [facility]; Protocol Last Admin: 11/08/18 07:27 Dose: Not Given Metoprolol Tartrate (Lopressor) 25 mg PO DAILY [facility] Last Admin: 11/07/18 09:16 Dose: 25 mg Ondansetron HCl (Zofran Inj) 4 mg IVP Q4H PRN PRN Reason: Nausea/Vomiting Last Admin: 11/07/18 15:52 Dose: 4 mg Tamsulosin HCl (Flomax) 0.8 mg PO DAILY [facility] Last Admin: 11/07/18 09:16 Dose: 0.8 mg - Labs Labs: 11/05/18 19:40 11/08/18 06:45 - Constitutional Appears: Well - Head Exam Head Exam: ATRAUMATIC, NORMAL INSPECTION, NORMOCEPHALIC - Eye Exam Eye Exam: EOMI, Normal appearance, PERRL Pupil Exam: NORMAL ACCOMODATION, PERRL - ENT Exam ENT Exam: Mucous Membranes Moist, Normal Exam - Neck Exam Neck Exam: Full ROM, Normal Inspection. absent: Lymphadenopathy - Respiratory Exam Respiratory Exam: Clear to Ausculation Bilateral, NORMAL BREATHING PATTERN - Cardiovascular Exam Cardiovascular Exam: REGULAR RHYTHM, +S1, +S2. absent: Murmur - GI/Abdominal Exam GI & Abdominal Exam: Soft, Normal Bowel Sounds. absent: Tenderness - Extremities Exam Extremities Exam: Full ROM, Normal Capillary Refill, Normal Inspection. absent: Joint Swelling, Pedal Edema - Back Exam Back Exam: NORMAL INSPECTION - Neurological Exam Neurological Exam: Alert, Awake, CN II-XII Intact, Normal Gait, Oriented x3 - Psychiatric Exam Psychiatric exam: Normal Affect, Normal Mood - Skin Skin Exam: Dry, Intact, Normal Color, Warm Assessment and Plan - Assessment and Plan (Free Text) Assessment: 63 M with pertinent medical history of past hernia repair, L sided colostomy bag, presents with R sided abdominal pain. CT A/P does show hernia with fat; no indication of any colitis or appendicitis. Patient is without any SIRS criteria or any other indications of an acute abdomen. Patient had scope done yesterday, showed one polyp but it was not in conjunction with patient's clinical symptoms nor his PET uptake. It is being sent for pathology. Patient also complaining of nausea; was given Reglan 5 X 3 doses. Could be 2/2 gastroparesis due to anesthesia. Patient also has an BLAYNE; baseline creatinine of 2.0 with CR of 3.6 today. Will work patient up and will avoid nephrotoxic agents at this time. Nephrology is following patient and agrees with fluid hydration For his Hx of HLD, we will continue lipitor; Hx HTN, will continue with Lopressor; Hx of BPH, continue with Flomax; and for Hx of CAD will continue with ASA daily. Note that patient has Hx of DM, and patient takes insulin. Given that patient has an BLAYNE and has a component of CKD, we need to be careful with our dosage of this medication. For now, we will keep patient on medium sliding scale.
--- NOTE | 2018-11-08 08:01 | CP.PCM.PN ---
Subjective - Date & Time of Evaluation Date of Evaluation: 11/07/18 Time of Evaluation: 08:00 - Subjective Subjective: Heme/Onc progress note - Ariella PGY - 2 Patient seen and examined at bedside. Patient had colonoscopy yesterday, tolerated well, but is currently having complaints of nausea. Denies any further complaints right now Objective - Vital Signs/Intake and Output Vital Signs (last 24 hours): Temp Pulse Resp BP Pulse Ox 97.9 F 84 20 152/71 H 98 11/07/18 16:39 11/07/18 16:39 11/07/18 16:39 11/07/18 16:39 11/07/18 16:39 Intake and Output: 11/08/18 11/08/18 06:59 18:59 Intake Total 380 Balance 380 - Medications Medications: Current Medications Amlodipine Besylate (Norvasc) 5 mg PO DAILY [facility] Last Admin: 11/07/18 17:11 Dose: 5 mg Dextrose (Dextrose 50% Inj) 0 ml IV STAT PRN; Protocol PRN Reason: Hypoglycemia Protocol Sodium Chloride (Sodium Chloride 0.9%) 1,000 mls @ 100 mls/hr IV .Q10H [facility] Last Admin: 11/07/18 23:13 Dose: Not Given Dextrose (Dextrose 5% In Water 1000 Ml) 1,000 mls @ 0 mls/hr IV .Q0M PRN; Protocol PRN Reason: Hypoglycemia Protocol Insulin Human Regular (Humulin R Med) 0 units SC ACHS [facility]; Protocol Last Admin: 11/08/18 07:27 Dose: Not Given Metoprolol Tartrate (Lopressor) 25 mg PO DAILY [facility] Last Admin: 11/07/18 09:16 Dose: 25 mg Ondansetron HCl (Zofran Inj) 4 mg IVP Q4H PRN PRN Reason: Nausea/Vomiting Last Admin: 11/07/18 15:52 Dose: 4 mg Tamsulosin HCl (Flomax) 0.8 mg PO DAILY [facility] Last Admin: 11/07/18 09:16 Dose: 0.8 mg - Labs Labs: 11/05/18 19:40 11/08/18 06:45 - Constitutional Appears: Well - Head Exam Head Exam: ATRAUMATIC, NORMAL INSPECTION, NORMOCEPHALIC - Eye Exam Eye Exam: EOMI, Normal appearance, PERRL Pupil Exam: NORMAL ACCOMODATION, PERRL - ENT Exam ENT Exam: Mucous Membranes Moist, Normal Exam - Neck Exam Neck Exam: Full ROM, Normal Inspection. absent: Lymphadenopathy - Respiratory Exam Respiratory Exam: Clear to Ausculation Bilateral, NORMAL BREATHING PATTERN - Cardiovascular Exam Cardiovascular Exam: REGULAR RHYTHM, +S1, +S2. absent: Murmur - GI/Abdominal Exam GI & Abdominal Exam: Soft, Normal Bowel Sounds. absent: Tenderness - Extremities Exam Extremities Exam: Full ROM, Normal Capillary Refill, Normal Inspection. absent: Joint Swelling, Pedal Edema - Back Exam Back Exam: NORMAL INSPECTION - Neurological Exam Neurological Exam: Alert, Awake, CN II-XII Intact, Normal Gait, Oriented x3 - Psychiatric Exam Psychiatric exam: Normal Affect, Normal Mood - Skin Skin Exam: Dry, Intact, Normal Color, Warm Assessment and Plan - Assessment and Plan (Free Text) Assessment: 63 M with pertinent medical history of past hernia repair, L sided colostomy bag, presents with R sided abdominal pain. CT A/P does show hernia with fat; no indication of any colitis or appendicitis. Patient is without any SIRS criteria or any other indications of an acute abdomen. Patient had scope done yesterday, showed one polyp but it was not in conjunction with patient's clinical symptoms nor his PET uptake. It is being sent for pathology. Patient also complaining of nausea; was given Reglan 5 X 3 doses. Could be 2/2 gastroparesis due to anesthesia. Patient also has an BLAYNE; baseline creatinine of 2.0 with CR of 3.6 today. Will work patient up and will avoid nephrotoxic agents at this time. Nephrology is following patient and agrees with fluid hydration For his Hx of HLD, we will continue lipitor; Hx HTN, will continue with Lopressor; Hx of BPH, continue with Flomax; and for Hx of CAD will continue with ASA daily. Note that patient has Hx of DM, and patient takes insulin. Given that patient has an BLAYNE and has a component of CKD, we need to be careful with our dosage of this medication. For now, we will keep patient on medium sliding scale.
--- NOTE | 2018-11-08 08:12 | CP.PCM.PN ---
Subjective - Date & Time of Evaluation Date of Evaluation: 11/08/18 Time of Evaluation: 08:11 - Subjective Subjective: Heme/Onc progress note - Ariella PGY - 2 Patient seen and examined at bedside. Objective - Vital Signs/Intake and Output Vital Signs (last 24 hours): Temp Pulse Resp BP Pulse Ox 97.9 F 84 20 152/71 H 98 11/07/18 16:39 11/07/18 16:39 11/07/18 16:39 11/07/18 16:39 11/07/18 16:39 Intake and Output: 11/08/18 11/08/18 06:59 18:59 Intake Total 380 Balance 380 - Medications Medications: Current Medications Amlodipine Besylate (Norvasc) 5 mg PO DAILY [facility] Last Admin: 11/07/18 17:11 Dose: 5 mg Dextrose (Dextrose 50% Inj) 0 ml IV STAT PRN; Protocol PRN Reason: Hypoglycemia Protocol Sodium Chloride (Sodium Chloride 0.9%) 1,000 mls @ 100 mls/hr IV .Q10H [facility] Last Admin: 11/07/18 23:13 Dose: Not Given Dextrose (Dextrose 5% In Water 1000 Ml) 1,000 mls @ 0 mls/hr IV .Q0M PRN; Protocol PRN Reason: Hypoglycemia Protocol Insulin Human Regular (Humulin R Med) 0 units SC ACHS [facility]; Protocol Last Admin: 11/08/18 07:27 Dose: Not Given Metoprolol Tartrate (Lopressor) 25 mg PO DAILY [facility] Last Admin: 11/07/18 09:16 Dose: 25 mg Ondansetron HCl (Zofran Inj) 4 mg IVP Q4H PRN PRN Reason: Nausea/Vomiting Last Admin: 11/07/18 15:52 Dose: 4 mg Tamsulosin HCl (Flomax) 0.8 mg PO DAILY [facility] Last Admin: 11/07/18 09:16 Dose: 0.8 mg - Labs Labs: 11/05/18 19:40 11/08/18 06:45 - Constitutional Appears: Well - Head Exam Head Exam: ATRAUMATIC, NORMAL INSPECTION, NORMOCEPHALIC - Eye Exam Eye Exam: EOMI, Normal appearance, PERRL Pupil Exam: NORMAL ACCOMODATION, PERRL - ENT Exam ENT Exam: Mucous Membranes Moist, Normal Exam - Neck Exam Neck Exam: Full ROM, Normal Inspection. absent: Lymphadenopathy - Respiratory Exam Respiratory Exam: Clear to Ausculation Bilateral, NORMAL BREATHING PATTERN - Cardiovascular Exam Cardiovascular Exam: REGULAR RHYTHM, +S1, +S2. absent: Murmur - GI/Abdominal Exam GI & Abdominal Exam: Soft, Normal Bowel Sounds. absent: Tenderness - Extremities Exam Extremities Exam: Full ROM, Normal Capillary Refill, Normal Inspection. absent: Joint Swelling, Pedal Edema - Back Exam Back Exam: NORMAL INSPECTION - Neurological Exam Neurological Exam: Alert, Awake, CN II-XII Intact, Normal Gait, Oriented x3 - Psychiatric Exam Psychiatric exam: Normal Affect, Normal Mood - Skin Skin Exam: Dry, Intact, Normal Color, Warm Assessment and Plan - Assessment and Plan (Free Text) Assessment: 63 M with pertinent medical history of past hernia repair, L sided colostomy bag, presents with R sided abdominal pain. CT A/P does show hernia with fat; no indication of any colitis or appendicitis. Patient is without any SIRS criteria or any other indications of an acute abdomen. Patient had scope done yesterday, showed one polyp but it was not in conjunction with patient's clinical symptoms nor his PET uptake. It is being sent for pathology. Patient also complaining of nausea; was given Reglan 5 X 3 doses. Could be 2/2 gastroparesis due to anesthesia. Patient also has an BLAYNE; baseline creatinine of 2.0 with CR of 3.6 today. Will work patient up and will avoid nephrotoxic agents at this time. Nephrology is following patient and agrees with fluid hydration For his Hx of HLD, we will continue lipitor; Hx HTN, will continue with Lopressor; Hx of BPH, continue with Flomax; and for Hx of CAD will continue with ASA daily. Note that patient has Hx of DM, and patient takes insulin. Given that patient has an BLAYNE and has a component of CKD, we need to be careful with our dosage of this medication. For now, we will keep patient on medium sliding scale.
[2018-11-08 08:16] VITALS: BP 121/68; PULSE 75; RESP 16
[2018-11-08 10:01] LABS: MEAN CORPUSCULAR HEMOGLOBIN 28.7 pg (25.0-35.0); MEAN CORPUSCULAR HGB CONC 33.7 g/dl (31.0-37.0); MEAN PLATELET VOLUME 9.5 fl (7.0-11.0); RBC 4.08 10^6/uL (3.5-6.1); RED CELL DISTRIBUTION WIDTH 13.3 % (11.5-14.5); WHITE BLOOD COUNT 9.4 10^3/uL (4.5-11.0)
[2018-11-08 10:05] LABS: HEMOGLOBIN 11.7 g/dL (14.0-18.0)
--- NOTE | 2018-11-08 13:27 | CP.PCM.PCO ---
Physician Communication Note - Physician Communication Note Physician Communication Note: Pt. seen s/p colonoscopy,polyp removed,per cleared from renal DC.
--- NOTE | 2018-11-08 13:44 | CP.PCM.PN ---
<Pavan Peña - Last Filed: 11/08/18 18:20> Subjective - Date & Time of Evaluation Date of Evaluation: 11/08/18 Time of Evaluation: 10:15 - Subjective Subjective: PGY6 GI Fellow Progress Note Patient seen and examined bedside this morning. The patient states he is feeling well. There is no abdominal pain and he denies any heamtochezia or melena in his ostomy. 12 system ROS performed and negative except where stated Objective - Vital Signs/Intake and Output Vital Signs (last 24 hours): Temp Pulse Resp BP Pulse Ox 97.9 F 75 16 121/68 98 11/08/18 06:00 11/08/18 06:00 11/08/18 06:00 11/08/18 06:00 11/08/18 06:00 Intake and Output: 11/08/18 11/08/18 06:59 18:59 Intake Total 380 Balance 380 - Medications Medications: Current Medications Amlodipine Besylate (Norvasc) 5 mg PO DAILY [facility] Last Admin: 11/08/18 09:50 Dose: 5 mg Dextrose (Dextrose 50% Inj) 0 ml IV STAT PRN; Protocol PRN Reason: Hypoglycemia Protocol Sodium Chloride (Sodium Chloride 0.9%) 1,000 mls @ 100 mls/hr IV .Q10H [facility] Last Admin: 11/07/18 23:13 Dose: Not Given Dextrose (Dextrose 5% In Water 1000 Ml) 1,000 mls @ 0 mls/hr IV .Q0M PRN; Protocol PRN Reason: Hypoglycemia Protocol Insulin Human Regular (Humulin R Med) 0 units SC ACHS [facility]; Protocol Last Admin: 11/08/18 13:09 Dose: Not Given Metoprolol Tartrate (Lopressor) 25 mg PO DAILY [facility] Last Admin: 11/08/18 09:50 Dose: 25 mg Ondansetron HCl (Zofran Inj) 4 mg IVP Q4H PRN PRN Reason: Nausea/Vomiting Last Admin: 11/07/18 15:52 Dose: 4 mg Tamsulosin HCl (Flomax) 0.8 mg PO DAILY [facility] Last Admin: 11/08/18 09:51 Dose: 0.8 mg - Labs Labs: 11/08/18 09:50 11/08/18 06:45 - Constitutional Appears: Non-toxic, No Acute Distress - Eye Exam Eye Exam: EOMI, PERRL - ENT Exam ENT Exam: Mucous Membranes Moist - Respiratory Exam Respiratory Exam: Clear to Ausculation Bilateral. absent: Rales, Rhonchi, Wheezes - Cardiovascular Exam Cardiovascular Exam: RRR, +S1, +S2 - GI/Abdominal Exam GI & Abdominal Exam: Soft, Normal Bowel Sounds. absent: Distended, Firm, Guarding, Rigid, Tenderness, Mass, Organomegaly Additional comments: left sided ostomy - Extremities Exam Extremities Exam: Normal Inspection. absent: Pedal Edema - Neurological Exam Neurological Exam: Alert, Awake, Oriented x3 - Psychiatric Exam Psychiatric exam: Normal Affect, Normal Mood - Skin Skin Exam: Dry, Warm Assessment and Plan - Assessment and Plan (Free Text) Assessment: Patient is a 63yo male with PMHx significant for rectal adenocarcinoma s/p chemoXRT and partial colectomy with colostomy, CKD, DM, hyperlipidemia who presented to the ED with complaint of abdominal pain -Abdominal pain -Colon polyps -Abnormal PET/CT in patient with h/o rectal adenocarcinoma -CAD -CKD -DM Plan: -Awaiting pathology from resected colon polyp -No lesions or abnormalities detected at the hepatic flexure or right colon -Large polypoid lesion resected in piecemeal fashion yesterday was located 27cm from ostomy -Recommend repeat colonoscopy in 3 months, will benefit from colon bx to r/o underlying IBD as prior bx did note cryptitis -Diet as tolerated -Drop in HGB noted though no overt GI bleeding identified - no bloody stool in ostomy <Gillian,Kovil V - Last Filed: 11/08/18 21:20> Objective - Vital Signs/Intake and Output Vital Signs (last 24 hours): Temp Pulse Resp BP Pulse Ox 97.9 F 75 16 121/68 98 11/08/18 06:00 11/08/18 06:00 11/08/18 06:00 11/08/18 06:00 11/08/18 06:00 - Labs Labs: 11/08/18 09:50 11/08/18 06:45 Attending/Attestation - Attestation I have personally seen and examined this patient.: Yes I have fully participated in the care of the patient.: Yes I have reviewed all pertinent clinical information, including history, physical exam and plan: Yes Notes (Text): This is an addendum to the GI progress report dictated by the fellow. Status post polypectomy. There is mild drop in blood count noticed. However colostomy did not reveal any blood. Patient has a chronic kidney disease was on IV fluids it could be due to dilutional. Patient does plan to be discharged. Patient is advised to call if there is any bleeding in colostomy bag. Recommend repeat colonoscopy in 3 months time in view of the piecemeal polypectomy advised to close oncology follow-up 11/08/18 21:19
--- NOTE | 2018-11-09 08:35 | PN ---
DATE: 11/08/2018 SUBJECTIVE: The patient is seen sitting in chair. He is awake, he is alert, he is comfortable. He denies any chest pain. Denies any palpitations. Denies any abdominal pain, nausea or vomiting. PHYSICAL EXAMINATION: GENERAL: Elderly male sitting in chair. VITAL SIGNS: Blood pressure 121/68, heart rate 75, respiratory rate 16, temperature 97.9. HEENT: Normocephalic, atraumatic, positive pallor. NECK: Supple, no JVD. LUNGS: Bilateral equal air entry, bilateral equal expansion. CARDIAC: S1, S2, regular rate and rhythm, no murmur, no rub. ABDOMEN: Obese, distended, soft, nontender, bowel sounds present. EXTREMITIES: No lower extremity edema. LABORATORY DATA: WBC 9.4, hemoglobin 11.7, hematocrit 34.7, platelets 220. Sodium 138, potassium 4.3, chloride 108, CO2 of 21, BUN 45, creatinine 2.9, glucose 129, calcium 7.6, phosphorus 2.8, magnesium 2.2. Urinalysis from yesterday, yellow, clear, pH 6.0, specific gravity greater than 1.030, protein greater than 300, ketones 15, blood large. RBCs too numerous to count. Urine eosinophils negative. Urine sodium 28, urine creatinine 102. CURRENT MEDICATIONS: Flomax 0.8, Lopressor 25 daily, amlodipine 5. Normal saline discontinued. ASSESSMENT: 1. Acute kidney injury, prerenal azotemia, resolving. 2. Underlying chronic kidney disease, stage III. 3. History of colorectal cancer, anterior resection, colostomy. 4. Noninsulin-dependent diabetes mellitus. 5. Hypertension. 6. Coronary artery disease, history of coronary artery bypass graft. PLAN: 1. parameters are slowly improving, baseline creatinine is around 2.4. 2. No objection to discharge, the patient to be monitored as outpatient. 3. Push p.o. fluids. 4. Continue current antihypertensives. Neelam Quick MD
== END 2018-11-08 15:14 | disposition home or self-care (01) | DRG 394 ==
LOC: ED 18:52 → ERH 23:47 → 3RSO 11-06 01:38 → OBSVTOIN 11-07 07:50 → INTOOBSV 11-08 07:50 → OBSVTOIN 11-08 07:50
PROVIDERS: ADMIT Family Medicine; ATTEND Family Medicine
PROC: 0DBL8ZX Excision of Transverse Colon, Via Natural or Artificial Opening Endoscopic, Diagnostic (ICD-10-PCS; principal; 2018-11-06 14:45)
DX: K63.5 Polyp of colon (principal); N17.9 Acute kidney failure, unspecified; N18.4 Chronic kidney disease, stage 4 (severe); I13.0 Hypertensive heart and chronic kidney disease with heart failure and stage 1 through stage 4 chronic kidney disease, or unspecified chronic kidney disease; I50.9 Heart failure, unspecified; N40.0 Benign prostatic hyperplasia without lower urinary tract symptoms; K57.30 Diverticulosis of large intestine without perforation or abscess without bleeding; I25.10 Atherosclerotic heart disease of native coronary artery without angina pectoris; E11.22 Type 2 diabetes mellitus with diabetic chronic kidney disease; D64.9 Anemia, unspecified; E78.5 Hyperlipidemia, unspecified; K31.84 Gastroparesis; T41.45XA Adverse effect of unspecified anesthetic, initial encounter; Z85.048 Personal history of other malignant neoplasm of rectum, rectosigmoid junction, and anus; Z87.891 Personal history of nicotine dependence; Z95.2 Presence of prosthetic heart valve; Z93.3 Colostomy status; Z79.82 Long term (current) use of aspirin; Z79.4 Long term (current) use of insulin; Z95.5 Presence of coronary angioplasty implant and graft; Z80.42 Family history of malignant neoplasm of prostate; Z92.3 Personal history of irradiation; Z95.1 Presence of aortocoronary bypass graft; Z92.21 Personal history of antineoplastic chemotherapy